=== PATIENT | female | born 1995 | race Caucasian/White ===

== ENCOUNTER → 2017-03-31 | Outpatient (CLI) | payer BC, OTHER ==
--- NOTE | 2017-03-31 11:58 | US ---
EXAMINATION TYPE: US kidneys/renal and bladder DATE OF EXAM: 03/31/2017 COMPARISON: 04/20/2014 CLINICAL HISTORY: 21-year-old female N18.2 CKD STAGE II. CKD, left nephrectomy Technique: Multiple sonographic images of the kidneys and bladder are obtained. FINDINGS: Right Kidney: 11.3 x 5.1 x 6.3 cm with mild hydronephrosis. Left Kidney: Surgically absent No gross abnormality of the partially urine distended bladder. Only the right ureteral jet is visual ized. IMPRESSION: 1. Left kidney appears absent. 2. Persistent right-sided pelvicaliectasis/mild hydronephrosis, similar to the appearance on 5. Clinically correlate.
== END | disposition home or self-care (01) ==
LOC: RADUSWWP 10:26
PROVIDERS: ATTEND Internal Medicine Nephrology
DX: N13.30 Unspecified hydronephrosis (principal); N18.2 Chronic kidney disease, stage 2 (mild); Z90.5 Acquired absence of kidney
CPT/HCPCS: 76770

== ENCOUNTER → 2019-04-18 | Outpatient (CLI) | payer BC, OTHER ==
--- NOTE | 2019-04-18 12:31 | US ---
EXAMINATION TYPE: US kidneys/renal and bladder DATE OF EXAM: 04/18/2019 COMPARISON: US 03/31/2017, US 04/20/2014 CLINICAL HISTORY: 23-year-old female N18.2 CKD. Renal failure TECHNIQUE: EXAM MEASUREMENTS: Right Kidney: 9.6 x 4.5 x 5.4 cm Left Kidney: Not visualized Right Kidney: Mild hydronephrosis, similar to previous exams Left Kidney: Not visualized. Prior exam provided history of prior left nephrectomy. Bladder: wnl Bilateral Jets seen: Right jet visualized IMPRESSION: 1. Unchanged mild right-sided hydronephrosis. 2. Left kidney not visualized. Clinically correlate.
== END | disposition home or self-care (01) ==
LOC: RADUSWWP 10:43
PROVIDERS: ATTEND Internal Medicine Nephrology
DX: N13.30 Unspecified hydronephrosis (principal); N18.2 Chronic kidney disease, stage 2 (mild)
CPT/HCPCS: 76770

== ENCOUNTER 2019-05-14 02:33 | Emergency (ER) | payer BC, OTHER ==
[2019-05-14 02:43] VITALS: RESP 18
[2019-05-14] MEDS ORDERED: SODIUM CHLORIDE 0.9% 1,000 ML IV STA (02:49)
--- NOTE | 2019-05-14 02:49 | ED ---
Abdominal Pain HPI - General Stated Complaint: diarrhea Time Seen by Provider: 05/14/19 02:42 Source: EMS Mode of arrival: EMS Limitations: no limitations - History of Present Illness Initial Comments: Misty is a 23-year-old female with a history of Ingram's syndrome and autism. Patient presents to the emergency department today by ambulance for evaluation of abdominal pain and diarrhea. Patient reports that she is currently on oral antibiotics for dental infection, she is taking clindamycin. Patient states in addition she ate at [employer] for dinner she subsequently developed crampy abdominal pain is had 5 loose stools which prompted her call the ambulance for transport to the hospital. Patient denies any associated fevers chills, nausea, vomiting or change in bladder habits. - Related Data Home Medications Medication Instructions Recorded Confirmed Cholecalciferol [Vitamin D3] 2,000 unit PO DAILY@1200 11/01/14 11/01/14 Enalapril Maleate [Vasotec] 5 mg PO DAILY 11/01/14 11/01/14 Ferrous Sulfate [Feosol] 65 mg PO DAILY 11/01/14 11/01/14 Lisdexamfetamine Dimesylate 70 mg PO QAM 11/01/14 11/01/14 [Vyvanse] Oxybutynin Chloride [Ditropan XL] 5 mg PO DAILY 11/01/14 11/01/14 Sertraline HCl [Zoloft] 50 mg PO DAILY 11/01/14 11/01/14 cloNIDine HCL [Catapres] 0.2 mg PO HS 11/01/14 11/01/14 Previous Rx's Medication Instructions Recorded Ibuprofen [Motrin] 600 mg PO Q6HR PRN #30 tab 11/01/14 Penicillin V Potassium [Pen Vee K] 500 mg PO QID #40 tab 11/01/14 Allergies Allergy/AdvReac Type Severity Reaction Status Date / Time Penicillins Allergy Swelling Verified 05/14/19 02:43 Review of Systems ROS Statement: Those systems with pertinent positive or pertinent negative responses have been documented in the HPI. ROS Other: All systems not noted in ROS Statement are negative. Past Medical History 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, Autism, History of Any Multi-Drug Resistant Organisms: None Reported Additional Past Surgical History / Comment(s): kidney right removed Past Psychological History: Depression Smoking Status: Never smoker Past Alcohol Use History: None Reported Past Drug Use History: None Reported General Exam - General Exam Comments Initial Comments: Physical Exam GENERAL: Syndrome with appearance, no acute distress HENT: Atraumatic. EYES: PERRL, EOMI PULMONARY: Unlabored respirations. No audible rales rhonchi or wheezing was noted. CARDIOVASCULAR: There is a regular rate and rhythm without any murmurs gallops or rubs. ABDOMEN: Soft with normal bowel sounds. Mild tenderness throughout SKIN: Skin is clear with no lesions or rashes and otherwise unremarkable. : Deferred NEUROLOGIC: Patient is alert and oriented x3. Moving all extremities spontaneously MUSCULOSKELETAL: Normal extremities with adequate strength and full range of motion. No lower extremity swelling or edema. No calf tenderness. PSYCHIATRIC: Normal psychiatric evaluation. Limitations: no limitations Course Vital Signs 05/14/19 05/14/19 05/14/19 02:35 05:12 05:52 Temperature 98 F 98.3 F Pulse Rate 89 95 97 Respiratory 18 18 18 Rate Blood Pressure 117/93 111/75 113/85 O2 Sat by Pulse 100 98 98 Oximetry Medical Decision Making - Medical Decision Making Patient was seen and evaluated history is obtained from patient history and physical exam are relatively unremarkable patient's on antibiotics and ate some low-quality fast food resulting in diarrhea. The patient Was found to advise and was taken for shower Labs were unremarkable, mild leukocytosis could be related to dental infection Patient in ER >3hrs, no diarrhea or vomitng, resting comfortably Patient will be discharged home in stable condition - Lab Data Result diagrams: 05/14/19 03:53 05/14/19 03:53 Lab Results 05/14/19 05/14/19 Range/Units 03:53 03:53 WBC 14.1 H (3.8-10.6) k/uL RBC 4.40 (3.80-5.40) m/uL Hgb 13.7 (11.4-16.0) gm/dL Hct 40.9 (34.0-46.0) % MCV 92.8 (80.0-100.0) fL MCH 31.0 (25.0-35.0) pg MCHC 33.4 (31.0-37.0) g/dL RDW 12.3 (11.5-15.5) % Plt Count 248 (150-450) k/uL Neutrophils % 89 % Lymphocytes % 6 % Monocytes % 4 % Eosinophils % 1 % Basophils % 0 % Neutrophils # 12.5 H (1.3-7.7) k/uL Lymphocytes # 0.8 L (1.0-4.8) k/uL Monocytes # 0.6 (0-1.0) k/uL Eosinophils # 0.1 (0-0.7) k/uL Basophils # 0.0 (0-0.2) k/uL Sodium 138 (137-145) mmol/L Potassium 4.2 (3.5-5.1) mmol/L Chloride 107 (98-107) mmol/L Carbon Dioxide 21 L (22-30) mmol/L Anion Gap 10 mmol/L BUN 15 (7-17) mg/dL Creatinine 1.11 H (0.52-1.04) mg/dL Est GFR (CKD-EPI)AfAm 81 (>60 ml/min/1.73 sqM) Est GFR (CKD-EPI)NonAf 70 (>60 ml/min/1.73 sqM) Glucose 108 H (74-99) mg/dL Calcium 9.2 (8.4-10.2) mg/dL Total Bilirubin 0.3 (0.2-1.3) mg/dL AST 25 (14-36) U/L ALT 14 (4-34) U/L Alkaline Phosphatase 135 H (38-126) U/L Total Protein 7.3 (6.3-8.2) g/dL Albumin 4.3 (3.5-5.0) g/dL Disposition Clinical Impression: Diarrhea Disposition: HOME SELF-CARE Condition: Stable Instructions (If sedation given, give patient instructions): Acute Diarrhea (ED) Is patient prescribed a controlled substance at d/c from ED?: No Referrals: Bianca Lindsay MD [Primary Care Provider] - 1-2 days
[2019-05-14 04:18] LABS: Basophils % (A) 0 %; Eosinophils # (A) 0.1 k/uL (0-0.7); Eosinophils % (A) 1 %; HCT 40.9 % (34.0-46.0); HGB 13.7 gm/dL (11.4-16.0); Lymphocytes # (A) 0.8 k/uL (1.0-4.8); Lymphocytes % (A) 6 %; MCHC 33.4 g/dL (31.0-37.0); MCV 92.8 fL (80.0-100.0); Mean Platelet Volume 9.3; Monocytes # (A) 0.6 k/uL (0-1.0); Monocytes % (A) 4 %; Neutrophils # (A) 12.5 k/uL (1.3-7.7); Neutrophils % (A) 89 %; Platelet Count 248 k/uL (150-450); RDW 12.3 % (11.5-15.5); WBC 14.1 k/uL (3.8-10.6)
[2019-05-14 04:27] LABS: Albumin 4.3 g/dL (3.5-5.0); Calcium 9.2 mg/dL (8.4-10.2); Potassium 4.2 mmol/L (3.5-5.1); Total Bilirubin 0.3 mg/dL (0.2-1.3); Total Protein 7.3 g/dL (6.3-8.2)
[2019-05-14 05:13] VITALS: TEMP 98.3
[2019-05-14 05:57] VITALS: BP 113/85; PULSE 97
== END 2019-05-14 06:30 | disposition home or self-care (01) ==
LOC: EC 02:33
DX: R19.7 Diarrhea, unspecified (principal); D72.829 Elevated white blood cell count, unspecified; K04.7 Periapical abscess without sinus; R10.9 Unspecified abdominal pain; Q96.9 Turner's syndrome, unspecified; F32.9 Major depressive disorder, single episode, unspecified; Z79.899 Other long term (current) drug therapy; Z88.0 Allergy status to penicillin
CPT/HCPCS: 36415; 80053; 85025; 96360; 99284

== ENCOUNTER → 2021-08-22 | Outpatient (CLI) | payer OTHER ==
--- NOTE | 2021-08-22 13:05 | US ---
EXAMINATION TYPE: US kidneys/renal and bladder DATE OF EXAM: 08/22/2021 COMPARISON: US 04/18/19 CLINICAL HISTORY: N18.2 Chronic kidney disease stage 2. CKD stage 2. Left nephrectomy in 1994. EXAM MEASUREMENTS: Right Kidney: 10.3 x 5.2 x 5.0 cm Left Kidney: Surgically absent cm Right Kidney: Mild hydro seen Left Kidney: Surgically absent Bladder: wnl Bilateral Jets seen: Yes No nephrolithiasis is seen. No masses are identified. The urinary bladder is anechoic. Bilateral u reteral jets are seen. IMPRESSION: Mild right-sided hydronephrosis noted.
== END | disposition home or self-care (01) ==
LOC: RADUSWWP 11:51
PROVIDERS: ATTEND Internal Medicine Nephrology
DX: N13.30 Unspecified hydronephrosis (principal)
CPT/HCPCS: 76770

== ENCOUNTER → 2021-09-29 | Outpatient (CLI) | payer OTHER ==
--- NOTE | 2021-09-29 13:08 | CT ---
EXAMINATION TYPE: CT abdomen pelvis wo con DATE OF EXAM: 09/29/2021 HISTORY: Hydronephrosis CT DLP: 482.10 mGycm. Automated Exposure Control for Dose Reduction was Utilized. TECHNIQUE: CT scan of the abdomen and pelvis is performed without oral or IV contrast. COMPARISON: Renal US 08/22/[address] abdomen May 05, 2013 FINDINGS: Within the limitations of a non-contrast study, the following observations are made. LUNG BASES: No significant abnormality is appreciated. LIVER/GB: No significant abnormality is appreciated. PANCREAS: No significant abnormality is seen. SPLEEN: No significant abnormality is seen. ADRENALS: No significant abnormality is seen. KIDNEYS: Left kidney is surgically absent. Right kidney remains abnormal with lobulated contour and h eterogeneous appearance. Suboptimal evaluation for masses without contrast. No new hydronephrosis syeda lauryn seen. Stable mild hydroureter coronal image 41 for reference. No renal or ureteral calculi BOWEL: Incidental normal-appearing appendix from cecum. A few Right-sided colonic diverticula. No CT evidence for acute diverticulitis. No suspicious small or large bowel dilatation [id number] fec al prominence in the right and transverse colon. GENITAL ORGANS: Anteverted uterus projects right of midline. LYMPH NODES: No greater than 1cm abdominal or pelvic lymph nodes are appreciated. OSSEOUS STRUCTURES: No significant abnormality is seen. OTHER: No significant additional abnormality is seen. IMPRESSION: No new right-sided hydronephrosis as was suspected on recent ultrasound.
== END | disposition home or self-care (01) ==
LOC: RADCTMAIN 12:29
PROVIDERS: ATTEND Urology
DX: N13.30 Unspecified hydronephrosis (principal)
CPT/HCPCS: 74176

== ENCOUNTER 2022-01-22 16:36 | Inpatient (IN) | payer OTHER ==
--- NOTE | 2022-01-22 16:42 | ED ---
General Adult HPI - General Chief complaint: Back Pain/Injury Stated complaint: Back Pain Time Seen by Provider: 01/22/22 16:42 Source: patient Mode of arrival: EMS Limitations: no limitations - History of Present Illness Initial comments: Patient presents to the ED by ambulance for evaluation. Patient states that she has had right lumbar back pain for the past 2 days, which she states is worse with changes in position. Patient is noted to be febrile on arrival to the ED, and she admits to feeling "hot and cold" for the past couple of days. Patient also admits to having a cough and nasal congestion for the past 2-3 days. Patient states that she had her right kidney removed when she was a child, and she states that she only has her left kidney remaining. Patient denies taking any pain or antipyretic medication today. Patient denies known trauma/injury/fall, leg pain/numbness/weakness, incontinence or urinary retention, headache, neck pain or stiffness, sore throat, chest pain, dyspnea, hemoptysis, palpitations, dizziness, abdominal pain, nausea/vomiting/diarrhea, dysuria/hematuria/urinary frequency/urinary symptoms, or any other symptoms or complaints. - Related Data Home Medications Medication Instructions Recorded Confirmed Cholecalciferol [Vitamin D3] 2,000 unit PO DAILY@1200 11/01/14 11/01/14 Enalapril Maleate [Vasotec] 5 mg PO DAILY 11/01/14 11/01/14 Ferrous Sulfate [Feosol] 65 mg PO DAILY 11/01/14 11/01/14 Lisdexamfetamine Dimesylate 70 mg PO QAM 11/01/14 11/01/14 [Vyvanse] Oxybutynin Chloride [Ditropan XL] 5 mg PO DAILY 11/01/14 11/01/14 Sertraline HCl [Zoloft] 50 mg PO DAILY 11/01/14 11/01/14 cloNIDine HCL [Catapres] 0.2 mg PO HS 11/01/14 11/01/14 Previous Rx's Medication Instructions Recorded Ibuprofen [Motrin] 600 mg PO Q6HR PRN #30 tab 11/01/14 Penicillin V Potassium [Pen Vee K] 500 mg PO QID #40 tab 11/01/14 Allergies Allergy/AdvReac Type Severity Reaction Status Date / Time Penicillins Allergy Swelling Verified 01/22/22 16:42 Review of Systems ROS Statement: Those systems with pertinent positive or pertinent negative responses have been documented in the HPI. ROS Other: All systems not noted in ROS Statement are negative. Past Medical History 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, Autism History of Any Multi-Drug Resistant Organisms: None Reported Additional Past Surgical History / Comment(s): kidney right removed Past Psychological History: Depression Smoking Status: Never smoker Past Alcohol Use History: None Reported Past Drug Use History: None Reported General Exam Limitations: no limitations General appearance: alert, in no apparent distress Head exam: Present: atraumatic, normocephalic Eye exam: Present: normal appearance, EOMI ENT exam: Present: normal oropharynx, mucous membranes moist Neck exam: Present: other (No nuchal rigidity or meningeal signs are present on exam; trachea is in midline). Absent: tenderness, meningismus Respiratory exam: Present: normal lung sounds bilaterally. Absent: respiratory distress, wheezes, rales, rhonchi, stridor Cardiovascular Exam: Present: normal rhythm, tachycardia, normal heart sounds, other (Normal radial pulses bilaterally) GI/Abdominal exam: Present: soft. Absent: distended, tenderness, guarding Extremities exam: Present: full ROM. Absent: tenderness, pedal edema, calf tenderness Back exam: Present: full ROM, other (Mild right lumbar back tenderness; no midline spinal tenderness). Absent: CVA tenderness (R), CVA tenderness (L) Neurological exam: Present: alert, oriented X3, other (No lower extremity neurological deficit or saddle anesthesia is present on exam). Absent: motor sensory deficit Psychiatric exam: Present: normal affect, normal mood Skin exam: Present: warm, dry, intact, normal color Course Vital Signs 01/22/22 01/22/22 16:39 18:14 Temperature 102.6 F H 98.8 F Pulse Rate 135 H 121 H Respiratory 18 18 Rate Blood Pressure 102/68 90/65 O2 Sat by Pulse 96 99 Oximetry - Reevaluation(s) Reevaluation #1: 01/22/22 18:44 Patient remains alert and breathing comfortably. Patient denies development of any new symptoms while in the ED. Patient is aware of her test results, and she agrees with hospital admission at this time. 01/22/22 18:49 Case, H&P, test results and ED management thus far were discussed with Dr. Hutchinson. She accepts hospital admission. She has no further recommendations at this time. Medical Decision Making - Medical Decision Making Patient presents to the ED febrile and complaining of having right lumbar back pain. Patient's UA is quite suggestive of UTI, and with her tachycardia and leukocytosis, she meets sepsis criteria. Patient's chest x-ray is negative. Patient's influenza and Covid tests are also negative. Patient has been treated with IV fluids and IV antibiotics in the ED. Patient's CT abdomen/pelvis does not demonstrate findings of urolithiasis. Will admit the patient to the hospital for continued management/antibiotic treatment. Dr. Hutchinson has accepted hospital admission. - Lab Data Result diagrams: 01/22/22 16:54 01/22/22 16:54 Lab Results 01/22/22 01/22/22 01/22/22 Range/Units 16:45 16:45 16:54 WBC 19.2 H (3.8-10.6) k/uL RBC 4.05 (3.80-5.40) m/uL Hgb 13.0 (11.4-16.0) gm/dL Hct 37.0 (34.0-46.0) % MCV 91.4 (80.0-100.0) fL MCH 32.2 (25.0-35.0) pg MCHC 35.2 (31.0-37.0) g/dL RDW 12.6 (11.5-15.5) % Plt Count 260 (150-450) k/uL MPV 8.9 Neutrophils % 90 % Lymphocytes % 3 % Monocytes % 5 % Eosinophils % 1 % Basophils % 0 % Neutrophils # 17.3 H (1.3-7.7) k/uL Lymphocytes # 0.5 L (1.0-4.8) k/uL Monocytes # 1.0 (0-1.0) k/uL Eosinophils # 0.2 (0-0.7) k/uL Basophils # 0.0 (0-0.2) k/uL Sodium (137-145) mmol/L Potassium (3.5-5.1) mmol/L Chloride (98-107) mmol/L Carbon Dioxide (22-30) mmol/L Anion Gap mmol/L BUN (7-17) mg/dL Creatinine (0.52-1.04) mg/dL Est GFR (CKD-EPI)AfAm (>60 ml/min/1.73 sqM) Est GFR (CKD-EPI)NonAf (>60 ml/min/1.73 sqM) Glucose (74-99) mg/dL Plasma Lactic Acid Murtaza (0.7-2.0) mmol/L Calcium (8.4-10.2) mg/dL Total Bilirubin (0.2-1.3) mg/dL AST (14-36) U/L ALT (4-34) U/L Alkaline Phosphatase (38-126) U/L Total Protein (6.3-8.2) g/dL Albumin (3.5-5.0) g/dL Urine Color Urine Appearance (Clear) Urine pH (5.0-8.0) Ur Specific Shiner (1.001-1.035) Urine Protein (Negative) Urine Glucose (UA) (Negative) Urine Ketones (Negative) Urine Blood (Negative) Urine Nitrite (Negative) Urine Bilirubin (Negative) Urine Urobilinogen (<2.0) mg/dL Ur Leukocyte Esterase (Negative) Urine RBC (0-5) /hpf Urine WBC (0-5) /hpf Urine WBC Clumps (None) /hpf Urine Bacteria (None) /hpf Urine Mucus (None) /hpf Coronavirus (PCR) Not Detected (Not Detectd) Influenza Type A RNA Not Detected (Not Detectd) Influenza Type B (PCR) Not Detected (Not Detectd) 01/22/22 01/22/22 01/22/22 Range/Units 16:54 16:54 16:57 WBC (3.8-10.6) k/uL RBC (3.80-5.40) m/uL Hgb (11.4-16.0) gm/dL Hct (34.0-46.0) % MCV (80.0-100.0) fL MCH (25.0-35.0) pg MCHC (31.0-37.0) g/dL RDW (11.5-15.5) % Plt Count (150-450) k/uL MPV Neutrophils % % Lymphocytes % % Monocytes % % Eosinophils % % Basophils % % Neutrophils # (1.3-7.7) k/uL Lymphocytes # (1.0-4.8) k/uL Monocytes # (0-1.0) k/uL Eosinophils # (0-0.7) k/uL Basophils # (0-0.2) k/uL Sodium 135 L (137-145) mmol/L Potassium 4.3 (3.5-5.1) mmol/L Chloride 102 (98-107) mmol/L Carbon Dioxide 21 L (22-30) mmol/L Anion Gap 12 mmol/L BUN 18 H (7-17) mg/dL Creatinine 1.36 H (0.52-1.04) mg/dL Est GFR (CKD-EPI)AfAm 62 (>60 ml/min/1.73 sqM) Est GFR (CKD-EPI)NonAf 53 (>60 ml/min/1.73 sqM) Glucose 108 H (74-99) mg/dL Plasma Lactic Acid Murtaza 1.0 (0.7-2.0) mmol/L Calcium 9.4 (8.4-10.2) mg/dL Total Bilirubin 1.7 H (0.2-1.3) mg/dL AST 57 H (14-36) U/L ALT 68 H (4-34) U/L Alkaline Phosphatase 205 H (38-126) U/L Total Protein 7.4 (6.3-8.2) g/dL Albumin 4.3 (3.5-5.0) g/dL Urine Color Yellow Urine Appearance Turbid H (Clear) Urine pH 6.0 (5.0-8.0) Ur Specific Shiner 1.015 (1.001-1.035) Urine Protein 2+ H (Negative) Urine Glucose (UA) Negative (Negative) Urine Ketones Negative (Negative) Urine Blood Large H (Negative) Urine Nitrite Negative (Negative) Urine Bilirubin Negative (Negative) Urine Urobilinogen <2.0 (<2.0) mg/dL Ur Leukocyte Esterase Large H (Negative) Urine RBC 53 H (0-5) /hpf Urine WBC >182 H (0-5) /hpf Urine WBC Clumps Many H (None) /hpf Urine Bacteria Occasional H (None) /hpf Urine Mucus Rare H (None) /hpf Coronavirus (PCR) (Not Detectd) Influenza Type A RNA (Not Detectd) Influenza Type B (PCR) (Not Detectd) - Radiology Data Noncontrast CT abdomen/pelvis: Lobulated right kidney. No obstruction. No change compared to old exam. Normal appendix. Chest x-ray: No active cardiopulmonary disease. No pulmonary infiltrates. Disposition Clinical Impression: Acute febrile illness, Lumbar back pain, Pyelonephritis, Sepsis Disposition: ADMITTED IP TO THIS HOSP Condition: Stable Is patient prescribed a controlled substance at d/c from ED?: No Referrals: Bianca Lindsay MD [Primary Care Provider] - 1-2 days Time of Disposition: 18:49
[2022-01-22] MEDS ORDERED: ACETAMINOPHEN TAB 500 MG TAB PO STA (16:48)
[2022-01-22] MEDS ORDERED: SODIUM CHLORIDE 0.9% 1,000 ML IV ONE (16:48)
[2022-01-22 17:02] LABS: Basophils % (A) 0 %; Eosinophils # (A) 0.2 k/uL (0-0.7); Eosinophils % (A) 1 %; Lymphocytes # (A) 0.5 k/uL (1.0-4.8); Lymphocytes % (A) 3 %; MCH 32.2 pg (25.0-35.0); MCHC 35.2 g/dL (31.0-37.0); MCV 91.4 fL (80.0-100.0); Mean Platelet Volume 8.9; Monocytes % (A) 5 %; Neutrophils # (A) 17.3 k/uL (1.3-7.7); Neutrophils % (A) 90 %; Platelet Count 260 k/uL (150-450); RBC 4.05 m/uL (3.80-5.40); RDW 12.6 % (11.5-15.5); WBC 19.2 k/uL (3.8-10.6)
[2022-01-22 17:11] LABS: Albumin 4.3 g/dL (3.5-5.0); Calcium 9.4 mg/dL (8.4-10.2); Potassium 4.3 mmol/L (3.5-5.1); Total Bilirubin 1.7 mg/dL (0.2-1.3); Total Protein 7.4 g/dL (6.3-8.2)
[2022-01-22 17:13] LABS: Appearance,Urine Turbid (Clear); Bacteria,Urine Occasional /hpf; Bilirubin,Urine Negative (Negative); Blood,Urine Large (Negative); Color,Urine Yellow; Glucose,Urine (UA) Negative (Negative); Ketones,Urine Negative (Negative); Leukocyte Esterase,Urine Large (Negative); Mucus,Urine Rare /hpf; Nitrite,Urine Negative (Negative); Protein,Urine 2+ (Negative); RBC,Urine 53 /hpf (0-5); Specific Gravity,Urine 1.015 (1.001-1.035); Urobilinogen,Urine <2.0 mg/dL (<2.0); WBC,Urine >182 /hpf (0-5)
--- NOTE | 2022-01-22 17:15 | XR ---
EXAMINATION TYPE: XR chest 2V DATE OF EXAM: 01/22/2022 COMPARISON: NONE HISTORY: Cough and fever TECHNIQUE: 2 views FINDINGS: Heart is normal. Lungs are clear of consolidation. There are no hilar masses. There is thor acic dextroscoliosis. Costophrenic angles are clear. IMPRESSION: No active cardiopulmonary disease. No pulmonary infiltrates.
--- NOTE | 2022-01-22 17:58 | CT ---
EXAMINATION TYPE: CT abdomen pelvis wo con DATE OF EXAM: 01/22/2022 COMPARISON: 09/29/2021 HISTORY: right flank back pain, UTI, fever CT DLP: 562.1 mGycm Automated exposure control for dose reduction was used. Images obtained from the diaphragm to the floor of the pelvis with no contrast. The lung bases are clear. No pleural effusion. Heart size is normal. No pericardial effusion. Liver s pleen stomach pancreas appear intact. Bile ducts are not dilated. Gallbladder has normal size. There is no adrenal mass. Left kidney is absent. Right kidney is lobulated with no definite hydroneph rosis. Ureters not dilated. The bladder distends smoothly. No inguinal hernia. No free fluid in the p carroll. There is subcutaneous edema over the lumbar spine. The lumbar vertebrae have normal alignment. No compression fracture. Posterior elements are intact. B rohan pelvis is intact. The hip joints are intact. There is no mesenteric edema. No ascites or free air. No sign of a bowel obstruction. Appendix is pos terior and medial and appears normal. IMPRESSION: Lobulated right kidney. No obstruction. No change compared to old exam. Normal appendix.
[2022-01-22] MEDS ORDERED: NALOXONE 0.4 MG/ML 1 ML VIAL IV PRN (18:50)
[2022-01-22] MEDS: SODIUM CHLORIDE 0.9% 1,000 ML IV SCH ×2 (20:16→23:32)
[2022-01-22] MEDS: ACETAMINOPHEN TAB 325 MG TAB PO PRN (23:31)
[2022-01-23] MEDS ORDERED: SODIUM CHLORIDE 0.9% 1,000 ML IV ONE (00:16)
[2022-01-23 01:58] LABS: Glucose,Whole Blood 147 mg/dL (70-110)
--- NOTE | 2022-01-23 02:36 | XR ---
EXAMINATION TYPE: XR chest 1V portable DATE OF EXAM: 01/23/2022 COMPARISON: 01/22/2022 HISTORY: Cough and fever TECHNIQUE: Single view FINDINGS: There is airspace infiltrate in both lower lobes with pulmonary edema. Heart is borderline enlarged. There is slight blunting right costophrenic angle. IMPRESSION: There is new pulmonary edema compared to yesterday and could be acute heart failure or RD S.
[2022-01-23 02:38] LABS: Glucose,Whole Blood 108 mg/dL (70-110)
[2022-01-23 02:43] LABS: ALT 58 U/L (4-34); AST 62 U/L (14-36); African American GFR (CKD) 60 (>60 ml/min/1.73 sqM); Albumin 3.5 g/dL (3.5-5.0); Albumin/Globulin Ratio 1.3; Alkaline Phosphatase 217 U/L (38-126); Anion Gap 10 mmol/L; Blood Urea Nitrogen 17 mg/dL (7-17); Calcium 8.2 mg/dL (8.4-10.2); Carbon Dioxide 15 mmol/L (22-30); Chloride 113 mmol/L (98-107); Globulin 2.6 g/dL; Glucose 117 mg/dL (74-99); Non-African American GFR(CKD) 52 (>60 ml/min/1.73 sqM); Potassium 3.5 mmol/L (3.5-5.1); Sodium 138 mmol/L (137-145); Total Bilirubin 1.7 mg/dL (0.2-1.3); Total Protein 6.1 g/dL (6.3-8.2)
[2022-01-23 02:59] LABS: Basophils % (A) 0 %; Eosinophils # (A) 0.1 k/uL (0-0.7); Eosinophils % (A) 0 %; HCT 35.7 % (34.0-46.0); HGB 12.2 gm/dL (11.4-16.0); Lymphocytes # (A) 0.8 k/uL (1.0-4.8); Lymphocytes % (A) 4 %; MCH 32.4 pg (25.0-35.0); MCHC 34.1 g/dL (31.0-37.0); Mean Platelet Volume 9.7; Monocytes % (A) 5 %; Neutrophils # (A) 18.8 k/uL (1.3-7.7); Neutrophils % (A) 91 %; Platelet Count 259 k/uL (150-450); RBC 3.76 m/uL (3.80-5.40); RDW 12.7 % (11.5-15.5); WBC 20.8 k/uL (3.8-10.6)
[2022-01-23] MEDS ORDERED: FUROSEMIDE 10 MG/ML 10 ML VIAL IV STA (03:18)
[2022-01-23] MEDS ORDERED: CEFEPIME 2 GM in SODIUM CHLORIDE 0.9% 100 ML IVPB SCH (04:00)
[2022-01-23 06:12] LABS: Basophils # (A) 0.1 k/uL (0-0.2); Basophils % (A) 0 %; Eosinophils # (A) 0.2 k/uL (0-0.7); Eosinophils % (A) 1 %; HCT 36.7 % (34.0-46.0); HGB 12.4 gm/dL (11.4-16.0); Lymphocytes # (A) 0.2 k/uL (1.0-4.8); Lymphocytes % (A) 1 %; MCH 32.1 pg (25.0-35.0); MCHC 33.7 g/dL (31.0-37.0); Mean Platelet Volume 9.4; Monocytes % (A) 4 %; Neutrophils # (A) 25.1 k/uL (1.3-7.7); Neutrophils % (A) 94 %; Platelet Count 244 k/uL (150-450); RBC 3.86 m/uL (3.80-5.40); RDW 12.8 % (11.5-15.5); WBC 26.8 k/uL (3.8-10.6)
[2022-01-23 06:23] LABS: Calcium 8.2 mg/dL (8.4-10.2); Potassium 3.9 mmol/L (3.5-5.1)
--- NOTE | 2022-01-23 06:53 | P.HPIM ---
History of Present Illness This is a pleasant 26 years old female with past medical history of Ingram Syndrome, Autism, kidney right removed, Depression. Her PCP is Dr. Lindsay and her mom is her guardian as per patient Patient presents because of cough and right flank pain. Patient states that she had some mild right flank pain yesterday which is went away now. Also she is been complaining of from dry cough no chest pain or dyspnea so she decided to come to emergency room She denies any dysuria or urgency or change in her urine symptoms but she says it is darker than usual. No abdominal pain or vomiting or diarrhea No dizziness but she has mild headache, she is fully awake and oriented, no weakness or abnormal sensation, no blurred vision or slurred speech. Patient denies any vaginal discharge or symptoms, her last menstrual cycle was on last June however she states that she is no way she would be pertinent because of congenital disease and because she is not sexually active as she states. Urine test is negative She denies smoking alcohol or illicit drug On admission patient had a fever of 102.6. She is tachycardic around 118 Blood pressure is soft and borderline 102/68 and overnight was 91 over 60s She has leukocytosis of 19.2, rest of CBC is unremarkable Sodium slightly low 135, creatinine elevated 0.36. Total bilirubin is high at 1.7 AST 57 and ALT 68. Urine analysis is suspicious of infection Nichols Virus, and influenza virus his R aundetected CT of the abdomen and pelvis without contrast: Lobulated right kidney. On obstruction. No change compared to old exam. Normal appendix. No hydronephrosis. Ureters are not dilated. There is subcutaneous edema over the lumbar spine Chest x-ray no active cardiopulmonary process Patient is started in the emergency room on ceftriaxone and started on normal saline at 75 mL/h increased 1 50 mL/h Overnight her blood pressure drop and patient become tachycardic and patient was moved to the ICU. This morning I saw the patient in the MICU she was fully awake and oriented, she was busy working on her smarts 4, she is on BiPAP and she received 1 dose of Lasix and she is diuresed well and produce more than a liter per bedside nurse. Yoder catheter into place. Review of Systems Review of systems CONSTITUTIONAL: No fever, no malaise, no fatigue. HEENT: No recent visual problems or hearing problems. Denied any sore throat. CARDIOVASCULAR: No orthopnea, PND, no palpitations, no syncope. PULMONARY: No shortness of breath,, no hemoptysis. GASTROINTESTINAL: No diarrhea, no nausea, no vomiting, no abdominal pain. Normoactive bowel sounds. NEUROLOGICAL: No headaches, no weakness, no numbness. HEMATOLOGICAL: Denies any bleeding or petechiae. GENITOURINARY: Denies any burning micturition, frequency, or urgency. MUSCULOSKELETAL/RHEUMATOLOGICAL: Denies any joint pain, swelling, or any muscle pain. ENDOCRINE: Denies any polyuria or polydipsia. Past Medical History 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, Autism History of Any Multi-Drug Resistant Organisms: None Reported Additional Past Surgical History / Comment(s): kidney right removed Past Anesthesia/Blood Transfusion Reactions: No Reported Reaction Past Psychological History: Depression Smoking Status: Never smoker Past Alcohol Use History: None Reported Past Drug Use History: None Reported Medications and Allergies Home Medications Medication Instructions Recorded Confirmed Type Enalapril Maleate [Vasotec] 5 mg PO Q48H 11/01/14 01/22/22 History Ferrous Sulfate [Feosol] 325 mg PO DAILY 11/01/14 01/22/22 History Lisdexamfetamine Dimesylate 70 mg PO DAILY 11/01/14 01/22/22 History [Vyvanse] Oxybutynin Chloride [Ditropan XL] 5 mg PO DAILY 11/01/14 01/22/22 History Sertraline HCl [Zoloft] 50 mg PO HS 11/01/14 01/22/22 History Cholecalciferol [Vitamin D3 (125 125 mcg PO DAILY 01/22/22 01/22/22 History Mcg = 5000 Iu)] Melatonin [Melatonin ER] 10 mg PO HS 01/22/22 01/22/22 History Oxybutynin Xl [Ditropan XL] 10 mg PO HS 01/22/22 01/22/22 History calcitrioL [Calcitriol] 0.25 mcg PO Q14D 01/22/22 01/22/22 History cloNIDine HCL [Catapres] 0.1 mg PO HS 01/22/22 01/22/22 History Allergies Allergy/AdvReac Type Severity Reaction Status Date / Time Penicillins Allergy Swelling Verified 01/22/22 19:02 Physical Exam Vitals: Vital Signs Temp Pulse Pulse Resp BP BP Pulse Ox 01/23/22 05:34 01/23/22 05:15 120 H 40 H 86/62 97 01/23/22 05:00 115 H 38 H 86/64 98 01/23/22 04:45 117 H 40 H 90/59 97 01/23/22 04:30 124 H 38 H 90/53 96 01/23/22 04:15 130 H 38 H 87/63 96 01/23/22 04:10 131 H 40 H 87/63 96 01/23/22 04:05 01/23/22 04:00 99.4 F 131 H 43 H 89/65 98 01/23/22 03:50 131 H 41 H 89/65 98 01/23/22 03:40 133 H 40 H 88/54 98 01/23/22 03:30 137 H 43 H 84/61 98 01/23/22 03:24 01/23/22 03:23 100.0 F H 135 H 35 H 80/55 98 01/23/22 02:05 01/23/22 01:19 88/58 01/22/22 23:25 98.2 F 135 H 22 95/62 95 01/22/22 20:15 118 H 18 91/63 97 01/22/22 18:14 98.8 F 121 H 18 90/65 99 01/22/22 16:39 102.6 F H 135 H 18 102/68 96 FiO2 01/23/22 05:34 70 01/23/22 05:15 01/23/22 05:00 01/23/22 04:45 01/23/22 04:30 01/23/22 04:15 01/23/22 04:10 01/23/22 04:05 80 01/23/22 04:00 80 01/23/22 03:50 01/23/22 03:40 01/23/22 03:30 100 01/23/22 03:24 100 01/23/22 03:23 01/23/22 02:05 100 01/23/22 01:19 01/22/22 23:25 01/22/22 20:15 01/22/22 18:14 01/22/22 16:39 Intake and Output 01/22/22 01/22/22 01/23/22 14:59 22:59 06:59 Output Total 875 Balance -875 Output: Urine 875 Other: Voiding Method Indwelling Catheter # Voids 1 Weight 111.13 kg -GENERAL: The patient is alert and oriented x3, not in any acute distress. Obese HEENT: Pupils are round and equally reacting to light. EOMI. No scleral icterus. No conjunctival pallor. Normocephalic, atraumatic. No pharyngeal erythema. No thyromegaly. CARDIOVASCULAR: S1 and S2 present. No murmurs, rubs, or gallops. PULMONARY: Chest is clear to auscultation, no wheezing or crackles. -ABDOMEN: Soft, nontender, nondistended, normoactive bowel sounds. No palpable organomegaly. Yoder catheter and a Place MUSCULOSKELETAL: No joint swelling or deformity. EXTREMITIES: No cyanosis, clubbing, or pedal edema. NEUROLOGICAL: Gross neurological examination did not reveal any focal deficits. SKIN: No rashes. no petechiae. Results CBC & Chem 7: 01/23/22 02:22 01/23/22 05:52 Labs: Abnormal Lab Results - Last 24 Hours (Table) 01/22/22 01/22/22 01/22/22 Range/Units 16:54 16:54 16:54 WBC 19.2 H (3.8-10.6) k/uL RBC (3.80-5.40) m/uL Neutrophils # 17.3 H (1.3-7.7) k/uL Lymphocytes # 0.5 L (1.0-4.8) k/uL Sodium 135 L (137-145) mmol/L Chloride (98-107) mmol/L Carbon Dioxide 21 L (22-30) mmol/L BUN 18 H (7-17) mg/dL Creatinine 1.36 H (0.52-1.04) mg/dL Glucose 108 H (74-99) mg/dL POC Glucose (mg/dL) (70-110) mg/dL Plasma Lactic Acid Murtaza (0.7-2.0) mmol/L Calcium (8.4-10.2) mg/dL Total Bilirubin 1.7 H (0.2-1.3) mg/dL AST 57 H (14-36) U/L ALT 68 H (4-34) U/L Alkaline Phosphatase 205 H (38-126) U/L Total Protein (6.3-8.2) g/dL Urine Appearance Turbid H (Clear) Urine Protein 2+ H (Negative) Urine Blood Large H (Negative) Ur Leukocyte Esterase Large H (Negative) Urine RBC 53 H (0-5) /hpf Urine WBC >182 H (0-5) /hpf Urine WBC Clumps Many H (None) /hpf Urine Bacteria Occasional H (None) /hpf Urine Mucus Rare H (None) /hpf 01/23/22 01/23/22 01/23/22 Range/Units 01:57 02:22 02:22 WBC 20.8 H (3.8-10.6) k/uL RBC 3.76 L (3.80-5.40) m/uL Neutrophils # 18.8 H (1.3-7.7) k/uL Lymphocytes # 0.8 L (1.0-4.8) k/uL Sodium (137-145) mmol/L Chloride 113 H (98-107) mmol/L Carbon Dioxide 15 L (22-30) mmol/L BUN (7-17) mg/dL Creatinine 1.38 H (0.52-1.04) mg/dL Glucose 117 H (74-99) mg/dL POC Glucose (mg/dL) 147 H (70-110) mg/dL Plasma Lactic Acid Murtaza (0.7-2.0) mmol/L Calcium 8.2 L (8.4-10.2) mg/dL Total Bilirubin 1.7 H (0.2-1.3) mg/dL AST 62 H (14-36) U/L ALT 58 H (4-34) U/L Alkaline Phosphatase 217 H (38-126) U/L Total Protein 6.1 L (6.3-8.2) g/dL Urine Appearance (Clear) Urine Protein (Negative) Urine Blood (Negative) Ur Leukocyte Esterase (Negative) Urine RBC (0-5) /hpf Urine WBC (0-5) /hpf Urine WBC Clumps (None) /hpf Urine Bacteria (None) /hpf Urine Mucus (None) /hpf 01/23/22 Range/Units 02:22 WBC (3.8-10.6) k/uL RBC (3.80-5.40) m/uL Neutrophils # (1.3-7.7) k/uL Lymphocytes # (1.0-4.8) k/uL Sodium (137-145) mmol/L Chloride (98-107) mmol/L Carbon Dioxide (22-30) mmol/L BUN (7-17) mg/dL Creatinine (0.52-1.04) mg/dL Glucose (74-99) mg/dL POC Glucose (mg/dL) (70-110) mg/dL Plasma Lactic Acid Murtaza 2.8 H* (0.7-2.0) mmol/L Calcium (8.4-10.2) mg/dL Total Bilirubin (0.2-1.3) mg/dL AST (14-36) U/L ALT (4-34) U/L Alkaline Phosphatase (38-126) U/L Total Protein (6.3-8.2) g/dL Urine Appearance (Clear) Urine Protein (Negative) Urine Blood (Negative) Ur Leukocyte Esterase (Negative) Urine RBC (0-5) /hpf Urine WBC (0-5) /hpf Urine WBC Clumps (None) /hpf Urine Bacteria (None) /hpf Urine Mucus (None) /hpf Microbiology - Last 24 Hours (Table) 01/22/22 16:54 Urine Culture - Preliminary Urine,Voided Thrombosis Risk Factor Assmnt - Choose All That Apply Any of the Below Risk Factors Present?: No Other Risk Factors: No Other congenital or acquired thrombophilia - If yes, enter type in comment: No Thrombosis Risk Factor Assessment Level: Very Low Risk Assessment and Plan Assessment: Possible right side Acute pyelonephritis Severe sepsis with fever and leukocytosis Acute kidney injury and dehydration, precarinal Mild transaminitis and elevated bilirubin History of Ingram syndrome History of autism History of removal of right kidney History of depression, not an active issue Morbid obesity with BMI of 49.5 Plan: Continue with broad-spectrum antibiotic, currently on ceftriaxone Follow-up urine culture and blood culture Continue with IV hydration Continue ICU management with pulmonary/critical care consult Pain management Infectious disease team consult Check renal ultrasound Labs and medication were reviewed.. Continue same treatment. Continue with symptomatic treatment. Resume home medication. Monitor lytes and vitals. DVT and GI prophylaxis. Further recommendations as per clinical course of the patient DVT prophylaxis: Subcutaneous heparin GI Prophylaxis: Pepcid PT/OT: Pending Prognosis is guarded
[2022-01-23] MEDS: FAMOTIDINE 20 MG/2 ML VIAL IV SCH ×2 (08:55→20:22)
[2022-01-23] MEDS: HEPARIN SODIUM,PORCINE/PF 5,000 UNIT/0.5 ML SYRINGE SQ SCH ×2 (08:55→20:21)
--- NOTE | 2022-01-23 09:02 | US ---
EXAMINATION TYPE: US abdomen complete DATE OF EXAM: 01/23/2022 COMPARISON: US renal, CT CLINICAL HISTORY: uti and fever. Abnormal labs TECHNIQUE: Multiple sonographic images of the abdomen are obtained. FINDINGS: EXAM MEASUREMENTS: Liver Length: 14.9 cm Gallbladder Wall: 0.5 cm CBD: 0.4 cm Spleen: 12.0 cm Right Kidney: 11.1 x 5.6 x 5.7 cm Left Kidney: Surgically absent Pancreas: Obscured by bowel gas Liver: wnl Gallbladder: Sludge filled with possible thickened wall and pericholecystic fluid. Evidence for sonographic Aguilar's sign: Yes CBD: wnl Spleen: wnl Right Kidney: Lobulated as visualized on recent CT Left Kidney: Surgically absent Upper IVC: wnl Abd Aorta: Prox and mid wnl, distal portion gassed out IMPRESSION: Biliary sludge, thickened gallbladder wall and pericholecystic fluid and a positive sonographic Della y sign findings suggest acute cholecystitis. Correlate with HIDA and physical exam.
--- NOTE | 2022-01-23 10:24 | P.CNPUL ---
History of Present Illness Consult date: 01/23/22 Reason for consult: dyspnea, hypoxemia History of present illness: This is a 26-year-old female patient who is known history of Ingram syndrome, and the patient was hospitalized yesterday because of a right flank pain consistent with pyelonephritis. The patient subsequently got transferred to the intensive care unit as the patient developed acute pulmonary edema and acute hypoxic respiratory failure. She was tachypneic and tachycardic and very short of breath and she was initially placed on 100% nonrebreather facemask. She got transferred to the intensive care unit hypoxic and she was placed on a BiPAP at a pressure of 10/5 cm of water. The BiPAP helped considerably. Note that the initial chest exit time of admission was essentially within normal limits and subsequent chest x-ray that was done within less than 24 hours showed acute pulmonary edema. The patient was given Lasix 60 mg IV push and the patient produced adequate amount of urine output. There is at least 2 L of diuresis on this patient. She is improved today, she is currently off the BiPAP and the patient is on oxygen at 3 L nasal cannula. White cell count remains elevated at 26.8 with a hemoglobin of 12.4 and a platelet count of 244. The BMs at 70 with a creatinine of 1.4 and the renal function continues to be impaired. This is consistent with an acute kidney injury as the patient's baseline renal function showed a creatinine ranging between 1 and 1.2. The patient has a component of melena negative metabolic acidosis at 18. The UA was obviously abnormal with extensive number of white cells and lumps. test is negative. Covid 19 testing is negative. Influenza screen was negative. Ultrasound of the abdomen showed thickening of the gallbladder wall with pericholecystic fluid and positive sonographic Aguilar's sign that suggest possibly acute cholecystitis. HIDA scan was recommended. The common bile duct was nondilated. Large was filled within the gallbladder wall. Renal ultrasound was not done. CAT scan of the abdomen and pelvis that was done at the time of admission showed lobulated the right kidney, no obstruction, no evidence of any hydronephrosis. Lung bases were essentially clear. The blood culture is positive for now with gram- negative bacillus. The patient was given a dose of IV Rocephin in the emergency and overnight I give the patient IV cefepime 2 g every 12 hours. She is on IV fluid cytology 100 mL an hour's and she is on no pressors. IV fluids will be kept on to 50 mL accordingly. Review of Systems Constitutional: Reports fatigue, Reports fever Eyes: denies as per HPI, denies blurred vision, denies bulging eye, denies decreased vision, denies diplopia, denies discharge, denies dry eye, denies irritation, denies itching, denies pain, denies photophobia, denies loss of peripheral vision, denies loss of vision, denies tunnel vision/blind spots Ears: deny: decreased hearing, ear discharge, earache, tinnitus Ears, nose, mouth and throat: Reports as per HPI Breasts: absent: as per HPI, change in shape, gynecomastia, masses, nipple discharge, pain, skin changes, swelling Cardiovascular: Reports as per HPI Respiratory: Reports as per HPI Gastrointestinal: Reports as per HPI Genitourinary: Reports as per HPI Menstruation: Reports as per HPI Musculoskeletal: Reports as per HPI Musculoskeletal: absent: ankle pain, ankle stiffness, ankle swelling Integumentary: Reports as per HPI Neurological: Reports as per HPI Psychiatric: Reports as per HPI Endocrine: Reports as per HPI Hematologic/Lymphatic: Reports as per HPI Allergic/Immunologic: Reports as per HPI Past Medical History 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, Autism History of Any Multi-Drug Resistant Organisms: None Reported Additional Past Surgical History / Comment(s): Right nephrectomy Past Anesthesia/Blood Transfusion Reactions: No Reported Reaction Past Psychological History: Depression Smoking Status: Never smoker Past Alcohol Use History: None Reported Past Drug Use History: None Reported Medications and Allergies Home Medications Medication Instructions Recorded Confirmed Type Enalapril Maleate [Vasotec] 5 mg PO Q48H 11/01/14 01/22/22 History Ferrous Sulfate [Feosol] 325 mg PO DAILY 11/01/14 01/22/22 History Lisdexamfetamine Dimesylate 70 mg PO DAILY 11/01/14 01/22/22 History [Vyvanse] Oxybutynin Chloride [Ditropan XL] 5 mg PO DAILY 11/01/14 01/22/22 History Sertraline HCl [Zoloft] 50 mg PO HS 11/01/14 01/22/22 History Cholecalciferol [Vitamin D3 (125 125 mcg PO DAILY 01/22/22 01/22/22 History Mcg = 5000 Iu)] Melatonin [Melatonin ER] 10 mg PO HS 01/22/22 01/22/22 History Oxybutynin Xl [Ditropan XL] 10 mg PO HS 01/22/22 01/22/22 History calcitrioL [Calcitriol] 0.25 mcg PO Q14D 01/22/22 01/22/22 History cloNIDine HCL [Catapres] 0.1 mg PO HS 01/22/22 01/22/22 History Allergies Allergy/AdvReac Type Severity Reaction Status Date / Time Penicillins Allergy Swelling Verified 01/22/22 19:02 Physical Exam Vitals: Vital Signs Temp Pulse Pulse Resp BP BP Pulse Ox 01/23/22 09:00 106 H 31 H 99/72 99 01/23/22 08:53 01/23/22 08:45 101 H 30 H 99 01/23/22 08:30 101 H 33 H 99 01/23/22 08:15 111 H 32 H 86/69 99 01/23/22 08:00 110 H 32 H 86/69 99 01/23/22 07:45 99.1 F 112 H 31 H 90/75 99 01/23/22 07:30 118 H 28 H 93/67 98 01/23/22 06:00 118 H 30 H 90/65 96 01/23/22 05:45 122 H 25 H 100/70 97 01/23/22 05:34 01/23/22 05:30 122 H 21 89/64 98 01/23/22 05:15 120 H 40 H 86/62 97 01/23/22 05:00 115 H 38 H 86/64 98 01/23/22 04:45 117 H 40 H 90/59 97 01/23/22 04:30 124 H 38 H 90/53 96 01/23/22 04:15 130 H 38 H 87/63 96 01/23/22 04:10 131 H 40 H 87/63 96 01/23/22 04:05 01/23/22 04:00 99.4 F 131 H 43 H 89/65 98 01/23/22 03:50 131 H 41 H 89/65 98 01/23/22 03:40 133 H 40 H 88/54 98 01/23/22 03:30 137 H 43 H 84/61 98 01/23/22 03:24 01/23/22 03:23 100.0 F H 135 H 35 H 80/55 98 01/23/22 02:05 01/23/22 01:19 88/58 01/22/22 23:25 98.2 F 135 H 22 95/62 95 01/22/22 20:15 118 H 18 91/63 97 01/22/22 18:14 98.8 F 121 H 18 90/65 99 01/22/22 16:39 102.6 F H 135 H 18 102/68 96 FiO2 01/23/22 09:00 50 01/23/22 08:53 50 01/23/22 08:45 01/23/22 08:30 01/23/22 08:15 01/23/22 08:00 01/23/22 07:45 70 01/23/22 07:30 01/23/22 06:00 01/23/22 05:45 01/23/22 05:34 70 01/23/22 05:30 01/23/22 05:15 01/23/22 05:00 01/23/22 04:45 01/23/22 04:30 01/23/22 04:15 01/23/22 04:10 01/23/22 04:05 80 01/23/22 04:00 80 01/23/22 03:50 01/23/22 03:40 01/23/22 03:30 100 01/23/22 03:24 100 01/23/22 03:23 01/23/22 02:05 100 01/23/22 01:19 01/22/22 23:25 01/22/22 20:15 01/22/22 18:14 01/22/22 16:39 Intake and Output 01/22/22 01/23/22 01/23/22 22:59 06:59 14:59 Intake Total 100 200 Output Total 1450 625 Balance -1350 -425 Intake: IV 100 200 Cefepime 2 gm In Sodium 100 200 Chloride 0.9% 100 ml @ 25 mls/hr IVPB Q12H [facility] Rx# :[id number] Output: Urine 1450 625 Other: Voiding Method Indwelling Catheter Indwelling Catheter # Voids 1 Weight 111.13 kg -GENERAL: The patient is alert and oriented x3, not in any acute distress. Obese, the patient is currently on 3 L O2 nasal cannula, breathing is nonlabored HEENT: Pupils are round and equally reacting to light. EOMI. No scleral icterus. No conjunctival pallor. Normocephalic, atraumatic. No pharyngeal erythema. No thyromegaly. CARDIOVASCULAR: S1 and S2 present. Systolic ejection murmur grade 3/6 systolic the precordium PULMONARY: Chest is clear to auscultation, no wheezing or crackles. -ABDOMEN: Soft, nontender, nondistended, normoactive bowel sounds. No palpable organomegaly. Yoder catheter and a Place MUSCULOSKELETAL: No joint swelling or deformity. EXTREMITIES: No cyanosis, clubbing, or pedal edema. NEUROLOGICAL: Gross neurological examination did not reveal any focal deficits. SKIN: No rashes. no petechiae. Results - Laboratory Findings CBC and BMP: 01/23/22 05:47 01/23/22 05:52 Abnormal lab findings: Abnormal Labs 01/22/22 01/22/22 01/22/22 16:54 16:54 16:54 WBC 19.2 H RBC Neutrophils # 17.3 H Lymphocytes # 0.5 L Sodium 135 L Chloride Carbon Dioxide 21 L BUN 18 H Creatinine 1.36 H Glucose 108 H POC Glucose (mg/dL) Plasma Lactic Acid Murtaza Calcium Total Bilirubin 1.7 H AST 57 H ALT 68 H Alkaline Phosphatase 205 H Total Protein Urine Appearance Turbid H Urine Protein 2+ H Urine Blood Large H Ur Leukocyte Esterase Large H Urine RBC 53 H Urine WBC >182 H Urine WBC Clumps Many H Urine Bacteria Occasional H Urine Mucus Rare H 01/23/22 01/23/22 01/23/22 01:57 02:22 02:22 WBC 20.8 H RBC 3.76 L Neutrophils # 18.8 H Lymphocytes # 0.8 L Sodium Chloride 113 H Carbon Dioxide 15 L BUN Creatinine 1.38 H Glucose 117 H POC Glucose (mg/dL) 147 H Plasma Lactic Acid Murtaza Calcium 8.2 L Total Bilirubin 1.7 H AST 62 H ALT 58 H Alkaline Phosphatase 217 H Total Protein 6.1 L Urine Appearance Urine Protein Urine Blood Ur Leukocyte Esterase Urine RBC Urine WBC Urine WBC Clumps Urine Bacteria Urine Mucus 01/23/22 01/23/22 01/23/22 02:22 05:47 05:52 WBC 26.8 H RBC Neutrophils # Lymphocytes # Sodium Chloride 110 H Carbon Dioxide 18 L BUN Creatinine 1.47 H Glucose 127 H POC Glucose (mg/dL) Plasma Lactic Acid Murtaza 2.8 H* Calcium 8.2 L Total Bilirubin AST ALT Alkaline Phosphatase Total Protein Urine Appearance Urine Protein Urine Blood Ur Leukocyte Esterase Urine RBC Urine WBC Urine WBC Clumps Urine Bacteria Urine Mucus - Diagnostic Findings Chest x-ray: image reviewed Assessment and Plan Plan: Acute gram-negative sepsis, likely of urinary source. Acute UTI with secondary septicemia Acute kidney injury secondary to above Acute leukocytosis secondary to above Acute lactic acidosis, improving Acute pulmonary edema in the setting of a valvular heart disease and sepsis. The patient is known to have bicuspid aortic valve and she presented to us with sepsis and she was fluid resuscitated and she briefly went into acute pulmonary edema, responded to diuretics and the patient is currently on 3 L O2 nasal cannula Acute hypoxic respiratory failure, improved currently off BiPAP on 3 L, Bicuspid aortic valve Biliary sludge with abnormal LFTs, there is sonographic Aguilar's sign. On examination, no right upper quadrant tenderness. Common bile duct is not elevated. Consider surgical evaluation. 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 The patient will need a HIDA scan Consider cholecystectomy at the later stage. For now, the acute sepsis related to UTI Obtain an echocardiogram to evaluate her LV function and aortic valve Monitor the white count Monitor the blood culture Restart the patient on Vyvanse, the Toprol-XL and oral iron. We will hold off the clonidine and enalapril for now Patient is fully vaccinated for Covid 19 and flu shots and tetanus shot.
[2022-01-23] MEDS: Lisdexamfetamine Dimesylate [Vyvanse] 70 MG Capsule PO SCH (10:54)
--- NOTE | 2022-01-23 11:04 | P.GSCN ---
History of Present Illness Consult date: 01/23/22 Reason for Consult: Cholecystitis History of present illness: 26-year-old female came to the hospital with complaints of right flank pain that began 2 days prior to presentation. Patient was febrile and had subjective complaints of chills. No nausea or vomiting or other GI complaints. Patient points to the right lateral abdominal wall in the right upper quadrant near the costal margin. Urinalysis suggests presence of urinary tract infection. Patient's liver enzymes which were previously normal however demonstrated an elevated bilirubin of 1.7 mildly elevated ALT and AST and alkaline phosphatase over 200. Ultrasound was then performed showing biliary sludge with thickened gallbladder wall and pericholecystic fluid with positive sonographic Aguilar sign. Patient with history of previous left nephrectomy many years ago. CAT scan shows mildly distended gallbladder. Inflammation difficult to visualize with noncontrast study. The right kidney does not appear different than previous CAT scan earlier this year. Patient was transferred to the ICU because of shortness of breath. Patient has a bicuspid aortic valve. Being evaluated and treated by pulmonary at this time. Patient's urinary cultures pending. Blood cultures are positive for gram-negative bacillus. 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, Autism History of Any Multi-Drug Resistant Organisms: None Reported Additional Past Surgical History / Comment(s): Right nephrectomy Past Anesthesia/Blood Transfusion Reactions: No Reported Reaction Past Psychological History: Depression Smoking Status: Never smoker Past Alcohol Use History: None Reported Past Drug Use History: None Reported Medications and Allergies Home Medications Medication Instructions Recorded Confirmed Type Enalapril Maleate [Vasotec] 5 mg PO Q48H 11/01/14 01/22/22 History Ferrous Sulfate [Feosol] 325 mg PO DAILY 11/01/14 01/22/22 History Lisdexamfetamine Dimesylate 70 mg PO DAILY 11/01/14 01/22/22 History [Vyvanse] Oxybutynin Chloride [Ditropan XL] 5 mg PO DAILY 11/01/14 01/22/22 History Sertraline HCl [Zoloft] 50 mg PO HS 11/01/14 01/22/22 History Cholecalciferol [Vitamin D3 (125 125 mcg PO DAILY 01/22/22 01/22/22 History Mcg = 5000 Iu)] Melatonin [Melatonin ER] 10 mg PO HS 01/22/22 01/22/22 History Oxybutynin Xl [Ditropan XL] 10 mg PO HS 01/22/22 01/22/22 History calcitrioL [Calcitriol] 0.25 mcg PO Q14D 01/22/22 01/22/22 History cloNIDine HCL [Catapres] 0.1 mg PO HS 01/22/22 01/22/22 History Allergies Allergy/AdvReac Type Severity Reaction Status Date / Time Penicillins Allergy Swelling Verified 01/22/22 19:02 Surgical - Exam Vital Signs Temp Pulse Resp BP Pulse Ox 102.6 F H 135 H 18 102/68 96 01/22/22 16:39 01/22/22 16:39 01/22/22 16:39 01/22/22 16:39 01/22/22 16:39 Physical exam: General: Well-developed, mildly obese white female in no distress HEENT: Normocephalic, sclerae nonicteric Abdomen: Mild right upper quadrant tenderness, nondistended Extremities: No edema Neuro: Alert and oriented Results - Labs 01/23/22 05:47 01/23/22 05:52 Abnormal Lab Results - Last 24 Hours (Table) 01/22/22 01/22/22 01/22/22 Range/Units 16:54 16:54 16:54 WBC 19.2 H (3.8-10.6) k/uL RBC (3.80-5.40) m/uL Neutrophils # 17.3 H (1.3-7.7) k/uL Lymphocytes # 0.5 L (1.0-4.8) k/uL Sodium 135 L (137-145) mmol/L Chloride (98-107) mmol/L Carbon Dioxide 21 L (22-30) mmol/L BUN 18 H (7-17) mg/dL Creatinine 1.36 H (0.52-1.04) mg/dL Glucose 108 H (74-99) mg/dL POC Glucose (mg/dL) (70-110) mg/dL Plasma Lactic Acid Murtaza (0.7-2.0) mmol/L Calcium (8.4-10.2) mg/dL Total Bilirubin 1.7 H (0.2-1.3) mg/dL AST 57 H (14-36) U/L ALT 68 H (4-34) U/L Alkaline Phosphatase 205 H (38-126) U/L Total Protein (6.3-8.2) g/dL Urine Appearance Turbid H (Clear) Urine Protein 2+ H (Negative) Urine Blood Large H (Negative) Ur Leukocyte Esterase Large H (Negative) Urine RBC 53 H (0-5) /hpf Urine WBC >182 H (0-5) /hpf Urine WBC Clumps Many H (None) /hpf Urine Bacteria Occasional H (None) /hpf Urine Mucus Rare H (None) /hpf 01/23/22 01/23/22 01/23/22 Range/Units 01:57 02:22 02:22 WBC 20.8 H (3.8-10.6) k/uL RBC 3.76 L (3.80-5.40) m/uL Neutrophils # 18.8 H (1.3-7.7) k/uL Lymphocytes # 0.8 L (1.0-4.8) k/uL Sodium (137-145) mmol/L Chloride 113 H (98-107) mmol/L Carbon Dioxide 15 L (22-30) mmol/L BUN (7-17) mg/dL Creatinine 1.38 H (0.52-1.04) mg/dL Glucose 117 H (74-99) mg/dL POC Glucose (mg/dL) 147 H (70-110) mg/dL Plasma Lactic Acid Murtaza (0.7-2.0) mmol/L Calcium 8.2 L (8.4-10.2) mg/dL Total Bilirubin 1.7 H (0.2-1.3) mg/dL AST 62 H (14-36) U/L ALT 58 H (4-34) U/L Alkaline Phosphatase 217 H (38-126) U/L Total Protein 6.1 L (6.3-8.2) g/dL Urine Appearance (Clear) Urine Protein (Negative) Urine Blood (Negative) Ur Leukocyte Esterase (Negative) Urine RBC (0-5) /hpf Urine WBC (0-5) /hpf Urine WBC Clumps (None) /hpf Urine Bacteria (None) /hpf Urine Mucus (None) /hpf 01/23/22 01/23/22 01/23/22 Range/Units 02:22 05:47 05:52 WBC 26.8 H (3.8-10.6) k/uL RBC (3.80-5.40) m/uL Neutrophils # (1.3-7.7) k/uL Lymphocytes # (1.0-4.8) k/uL Sodium (137-145) mmol/L Chloride 110 H (98-107) mmol/L Carbon Dioxide 18 L (22-30) mmol/L BUN (7-17) mg/dL Creatinine 1.47 H (0.52-1.04) mg/dL Glucose 127 H (74-99) mg/dL POC Glucose (mg/dL) (70-110) mg/dL Plasma Lactic Acid Murtaza 2.8 H* (0.7-2.0) mmol/L Calcium 8.2 L (8.4-10.2) mg/dL Total Bilirubin (0.2-1.3) mg/dL AST (14-36) U/L ALT (4-34) U/L Alkaline Phosphatase (38-126) U/L Total Protein (6.3-8.2) g/dL Urine Appearance (Clear) Urine Protein (Negative) Urine Blood (Negative) Ur Leukocyte Esterase (Negative) Urine RBC (0-5) /hpf Urine WBC (0-5) /hpf Urine WBC Clumps (None) /hpf Urine Bacteria (None) /hpf Urine Mucus (None) /hpf Microbiology - Last 24 Hours (Table) 01/22/22 18:00 Blood Culture Gram Stain - Preliminary Blood 01/22/22 17:50 Blood Culture Gram Stain - Preliminary Blood 01/22/22 18:00 Blood Culture - Final Blood 01/22/22 17:50 Blood Culture - Final Blood 01/22/22 16:54 Urine Culture - Preliminary Urine,Voided Diabetes panel 01/22/22 01/23/22 01/23/22 Range/Units 16:54 02:22 05:52 Sodium 135 L 138 139 (137-145) mmol/L Potassium 4.3 3.5 3.9 (3.5-5.1) mmol/L Chloride 102 113 H 110 H (98-107) mmol/L Carbon Dioxide 21 L 15 L 18 L (22-30) mmol/L BUN 18 H 17 17 (7-17) mg/dL Creatinine 1.36 H 1.38 H 1.47 H (0.52-1.04) mg/dL Glucose 108 H 117 H 127 H (74-99) mg/dL Calcium 9.4 8.2 L 8.2 L (8.4-10.2) mg/dL AST 57 H 62 H (14-36) U/L ALT 68 H 58 H (4-34) U/L Alkaline Phosphatase 205 H 217 H (38-126) U/L Total Protein 7.4 6.1 L (6.3-8.2) g/dL Albumin 4.3 3.5 (3.5-5.0) g/dL Calcium panel 01/22/22 01/23/22 01/23/22 Range/Units 16:54 02:22 05:52 Calcium 9.4 8.2 L 8.2 L (8.4-10.2) mg/dL Albumin 4.3 3.5 (3.5-5.0) g/dL Pituitary panel 01/22/22 01/23/22 01/23/22 Range/Units 16:54 02:22 05:52 Sodium 135 L 138 139 (137-145) mmol/L Potassium 4.3 3.5 3.9 (3.5-5.1) mmol/L Chloride 102 113 H 110 H (98-107) mmol/L Carbon Dioxide 21 L 15 L 18 L (22-30) mmol/L BUN 18 H 17 17 (7-17) mg/dL Creatinine 1.36 H 1.38 H 1.47 H (0.52-1.04) mg/dL Glucose 108 H 117 H 127 H (74-99) mg/dL Calcium 9.4 8.2 L 8.2 L (8.4-10.2) mg/dL Adrenal panel 01/22/22 01/23/22 01/23/22 Range/Units 16:54 02:22 05:52 Sodium 135 L 138 139 (137-145) mmol/L Potassium 4.3 3.5 3.9 (3.5-5.1) mmol/L Chloride 102 113 H 110 H (98-107) mmol/L Carbon Dioxide 21 L 15 L 18 L (22-30) mmol/L BUN 18 H 17 17 (7-17) mg/dL Creatinine 1.36 H 1.38 H 1.47 H (0.52-1.04) mg/dL Glucose 108 H 117 H 127 H (74-99) mg/dL Calcium 9.4 8.2 L 8.2 L (8.4-10.2) mg/dL Total Bilirubin 1.7 H 1.7 H (0.2-1.3) mg/dL AST 57 H 62 H (14-36) U/L ALT 68 H 58 H (4-34) U/L Alkaline Phosphatase 205 H 217 H (38-126) U/L Total Protein 7.4 6.1 L (6.3-8.2) g/dL Albumin 4.3 3.5 (3.5-5.0) g/dL Assessment and Plan (1) Acute cholecystitis Narrative/Plan: 26-year-old female with gram-negative bacteremia and right-sided flank pain. Ultrasound suggests cholecystitis continued into the clinical picture. Whether the source of bacteremia is the gallbladder or the urinary tract infection dif ficult to say with certainty. I do not believe HIDA scan will contribute further to the clinical picture. We'll recheck liver enzymes will today and again tomorrow morning. If liver enzymes increase further would need to consider the possibility of choledocholithiasis. Discussed options with both patient and mentally impaired teacher. Recommend cholecystectomy at this time. We'll proceed with laparoscopic, possible open cholecystectomy tomorrow. Risks of bleeding, infection, bile leak, bile duct injury, retained common bile duct stone, trocar injury, conversion to an open procedure, hernia, anesthesia related complications were reviewed. The patient understands and wishes to proceed. We'll discuss with the patient's mother by phone. Current Visit: Yes Status: Acute Code(s): K81.0 - ACUTE CHOLECYSTITIS SNOMED Code(s): 34376909
[2022-01-23] MEDS: OXYBUTYNIN XL 5 MG TAB.ER.24 PO SCH ×2 (11:08→20:44)
[2022-01-23] MEDS: FERROUS SULFATE 325 MG TAB PO SCH (11:08)
[2022-01-23] MEDS: SODIUM CHLORIDE 0.9% 1,000 ML IV SCH (11:12)
[2022-01-23] MEDS: guaiFENesin-DM 100-10MG/5ML 10 ML CUP PO PRN ×2 (12:32→18:44)
[2022-01-23 12:38] LABS: Albumin 3.6 g/dL (3.5-5.0); Calcium 8.7 mg/dL (8.4-10.2); Total Protein 6.4 g/dL (6.3-8.2)
[2022-01-23 12:41] LABS: Potassium 4.1 mmol/L (3.5-5.1)
[2022-01-23 14:59] LABS: RBC Morphology Normal
--- NOTE | 2022-01-23 17:05 | CA ---
Transthoracic Echo Report Name: Misty Arreola Age: 26 Gender: F : 1995 Exam Date: 01/23/2022 10:35 Exam Location: [facility] Ht (in): 59 Wt (lb): 245 Ordering Physician: Yuliana aNm MD Attending/Referring Phys: Vision Therapist Chantelle Jimenez RDCS Procedure CPT: Indications: Assess LV Function Cardiac Hx: Technical Quality: Fair Contrast 1: Total Dose (mL): Contrast 2: Total Dose (mL): MEASUREMENTS (Male / Female) Normal Values 2D ECHO LV Diastolic Diameter PLAX 3.0 cm 4.2 - 5.9 / 3.9 - 5.3 cm LV Systolic Diameter PLAX 2.4 cm IVS Diastolic Thickness 1.1 cm 0.6 - 1.0 / 0.6 - 0.9 cm LVPW Diastolic Thickness 1.2 cm 0.6 - 1.0 / 0.6 - 0.9 cm LV Relative Wall Thickness 0.8 RV Internal Dim ED PLAX 2.4 cm LVOT Diameter 1.7 cm LA Systolic Diameter LX 2.7 cm 3.0 - 4.0 / 2.7 - 3.8 cm LV Diastolic Volume MOD 4C 74.4 cm??? LV Systolic Volume MOD 4C 37.4 cm??? LV Ejection Fraction MOD 4C 49.7 % LV Diastolic Length 4C 7.2 cm LV Systolic Length 4C 5.8 cm LV Diastolic Volume MOD 2C 60.9 cm??? LV Systolic Volume MOD 2C 29.8 cm??? LV Ejection Fraction MOD 2C 51.1 % LV Diastolic Length 2C 6.5 cm LV Systolic Length 2C 5.7 cm LA Volume 28.9 cm??? 18 - 58 / 22 - 52 cm??? M-MODE Aortic Root Diameter MM 2.0 cm MV E Point Septal Separation 0.5 cm AV Cusp Separation MM 1.7 cm DOPPLER AV Peak Velocity 416.5 cm/s AV Peak Gradient 69.4 mmHg AV Mean Velocity 315.1 cm/s AV Mean Gradient 43.6 mmHg AV Velocity Time Integral 79.2 cm LVOT Peak Velocity 105.8 cm/s LVOT Peak Gradient 4.5 mmHg AV Area Cont Eq pk 0.6 cm??? MV Area PHT 7.4 cm??? Mitral E Point Velocity 152.1 cm/s Mitral A Point Velocity 164.5 cm/s Mitral E to A Ratio 0.9 MV Deceleration Time 101.9 ms MV E' Velocity 10.9 cm/s Mitral E to MV E' Ratio 13.9 TR Peak Velocity 296.7 cm/s TR Peak Gradient 35.2 mmHg Right Ventricular Systolic Press 39.5 mmHg FINDINGS Left Ventricle Left ventricular ejection fraction is estimated at 60-65 %. Small left ventricular cavity. Right Ventricle Normal right ventricular size. Mild pulmonary hypertension. Right Atrium Normal right atrial size. Left Atrium Normal left atrial size. No evidence for an atrial septal defect. Mitral Valve Structurally normal mitral valve. No mitral stenosis, regurgitation or prolapse. Aortic Valve Known bicuspid AOV. Severe aortic stenosis with a peak velocity of 416 m/s, peak gradient 69 mmHg, mean gradient 44 mmHg, and estimated aortic valve area of 0.6 cm???. Tricuspid Valve Structurally normal tricuspid valve. Mild tricuspid regurgitation. Pulmonic Valve Trace pulmonic regurgitation. Pericardium Normal pericardium. No pericardial effusion. Aorta Normal size aortic root and proximal ascending aorta. CONCLUSIONS Left ventricular ejection fraction 60-65% Bicuspid aortic valve with mild to moderately decreased leaflet excursion. Severe aortic stenosis by gradient with maximum velocity 4.1 m/s however still appears to be significant leaflet excursion. Consider correlation with SREEKANTH. Mild tricuspid regurgitation No pericardial effusion Previewed by: Dr. Zachary Grewal DO (Electronically Signed) Final Date: 23 January 2022 17:04
[2022-01-23] MEDS: ACETAMINOPHEN TAB 325 MG TAB PO PRN (20:21)
[2022-01-23] MEDS: NOREPINEPHRINE 4 MG in SODIUM CHLORIDE 0.9% 250 ML IV SCH (20:21)
--- NOTE | 2022-01-23 23:47 | P.CONS ---
History of Present Illness - Reason for Consult Consult date: 01/23/22 Positive blood culture Requesting physician: Michael Kyle - Chief Complaint Right flank pain x few days - History of Present Illness Patient is a 26-year-old female with a past medical history significant for Ingram syndrome autism patient was brought into the ER for evaluation of the right flank pain that apparently has been getting worse for the last few days patient described the pain to be more of a sharp like a stabbing 7-8 out of 10 no radiation with associated nausea and vomiting patient denies having any headache or URI symptoms complaining of some shortness of breath and a cough which has been mild to moderate intensity not bring up any sputum with the symptom the patient has been evaluated on arrival to the ER the patient did have a fever of 102.6 degree Formflex patient was tachycardic hypertensive and tachypneic requiring admission to the ICU patient did have a elevated white count elevated BUN and creatinine as well as elevated lactic acid patient did have a positive UA influenza and COVID testing was negative patient did have a blood and urine culture coming back positive with gram-negative bacilli that has prompted this infectious disease consultation patient did have a CT of the abdominal pelvis lobulated right kidney no obstruction normal appendix she also have an abdominal ultrasound biliary sludge thickened gallbladder wall and pericholecystic fluid for which general surgery has been consulted recommending a HIDA scan Review of Systems Positive point has been mentioned in the HPI rest of the systems are negative Past Medical History 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, Autism History of Any Multi-Drug Resistant Organisms: None Reported Additional Past Surgical History / Comment(s): Right nephrectomy Past Anesthesia/Blood Transfusion Reactions: No Reported Reaction Past Psychological History: Depression Smoking Status: Never smoker Past Alcohol Use History: None Reported Past Drug Use History: None Reported Medications and Allergies Home Medications Medication Instructions Recorded Confirmed Type Ferrous Sulfate [Iron (65 MG 325 mg PO DAILY 11/01/14 01/22/22 History Elemental)] Lisdexamfetamine Dimesylate 70 mg PO DAILY 11/01/14 01/22/22 History [Vyvanse] Oxybutynin Chloride [Ditropan XL] 5 mg PO DAILY 11/01/14 01/22/22 History Sertraline HCl [Zoloft] 50 mg PO HS 11/01/14 01/22/22 History Cholecalciferol [Vitamin D3 (125 125 mcg PO DAILY 01/22/22 01/22/22 History Mcg = 5000 Iu)] Melatonin [Melatonin ER] 10 mg PO HS 01/22/22 01/22/22 History Oxybutynin Xl [Ditropan XL] 10 mg PO HS 01/22/22 01/22/22 History calcitrioL [Calcitriol] 0.25 mcg PO Q14D 01/22/22 01/22/22 History Acetaminophen Tab [Tylenol Tab] 650 mg PO Q4H PRN #30 tablet 01/28/22 Rx Ciprofloxacin HCl [Cipro] 500 mg PO BID 12 Days #24 tab 01/28/22 Rx Famotidine [Pepcid] 20 mg PO DAILY 10 Days #10 tablet 01/28/22 Rx Allergies Allergy/AdvReac Type Severity Reaction Status Date / Time Penicillins Allergy Swelling Verified 01/22/22 19:02 Physical Exam Vitals: Vital Signs Temp Pulse Pulse Resp BP BP Pulse Ox 01/23/22 12:00 99.0 F 112 H 24 95/59 95 01/23/22 11:42 95 01/23/22 11:00 114 H 29 H 93/71 90 L 01/23/22 10:15 112 H 20 97 01/23/22 10:00 103 H 22 94/70 98 01/23/22 09:45 104 H 24 99 01/23/22 09:30 113 H 20 98 01/23/22 09:15 104 H 20 98 01/23/22 09:00 106 H 31 H 99/72 99 01/23/22 08:53 01/23/22 08:45 101 H 30 H 99 01/23/22 08:30 101 H 33 H 99 01/23/22 08:15 111 H 32 H 86/69 99 01/23/22 08:00 110 H 32 H 86/69 99 01/23/22 07:45 99.1 F 112 H 31 H 90/75 99 01/23/22 07:30 118 H 28 H 93/67 98 01/23/22 06:00 118 H 30 H 90/65 96 01/23/22 05:45 122 H 25 H 100/70 97 01/23/22 05:34 01/23/22 05:30 122 H 21 89/64 98 01/23/22 05:15 120 H 40 H 86/62 97 01/23/22 05:00 115 H 38 H 86/64 98 01/23/22 04:45 117 H 40 H 90/59 97 01/23/22 04:30 124 H 38 H 90/53 96 01/23/22 04:15 130 H 38 H 87/63 96 01/23/22 04:10 131 H 40 H 87/63 96 01/23/22 04:05 01/23/22 04:00 99.4 F 131 H 43 H 89/65 98 01/23/22 03:50 131 H 41 H 89/65 98 01/23/22 03:40 133 H 40 H 88/54 98 01/23/22 03:30 137 H 43 H 84/61 98 01/23/22 03:24 01/23/22 03:23 100.0 F H 135 H 35 H 80/55 98 01/23/22 02:05 01/23/22 01:19 88/58 01/22/22 23:25 98.2 F 135 H 22 95/62 95 01/22/22 20:15 118 H 18 91/63 97 01/22/22 18:14 98.8 F 121 H 18 90/65 99 01/22/22 16:39 102.6 F H 135 H 18 102/68 96 FiO2 01/23/22 12:00 01/23/22 11:42 100 01/23/22 11:00 01/23/22 10:15 01/23/22 10:00 01/23/22 09:45 01/23/22 09:30 01/23/22 09:15 01/23/22 09:00 50 01/23/22 08:53 50 01/23/22 08:45 01/23/22 08:30 01/23/22 08:15 01/23/22 08:00 01/23/22 07:45 70 01/23/22 07:30 01/23/22 06:00 01/23/22 05:45 01/23/22 05:34 70 01/23/22 05:30 01/23/22 05:15 01/23/22 05:00 01/23/22 04:45 01/23/22 04:30 01/23/22 04:15 01/23/22 04:10 11/25/22 04:05 80 01/23/22 04:00 80 01/23/22 03:50 01/23/22 03:40 01/23/22 03:30 100 01/23/22 03:24 100 01/23/22 03:23 01/23/22 02:05 100 01/23/22 01:19 01/22/22 23:25 01/22/22 20:15 01/22/22 18:14 01/22/22 16:39 Intake and Output 01/22/22 01/23/22 01/23/22 22:59 06:59 14:59 Intake Total 100 450 Output Total 1450 1275 Balance -1350 -825 Intake: IV 100 450 Cefepime 2 gm In Sodium 100 450 Chloride 0.9% 100 ml @ 25 mls/hr IVPB Q12H [facility] Rx# :[id number] Output: Urine 1450 1275 Other: Voiding Method Indwelling Catheter Indwelling Catheter # Voids 1 Weight 111.13 kg GENERAL DESCRIPTION: Middle-aged female lying in bed, no distress. No tachypnea or accessory muscle of respiration use. HEENT: Shows Pallor , no scleral icterus. Oral mucous membrane is dry. No pharyngeal erythema or thrush NECK: Trachea central, no thyromegaly. LUNGS: Unlabored breathing. Decreased breath sound the base HEART: S1, S2, regular rate and rhythm. No loud murmur ABDOMEN: Soft, mild right-sided tenderness , no guarding or rigidity, no organomegaly EXTREMITIES: No edema of feet. SKIN: No rash, no masses palpable. NEUROLOGICAL: The patient is awake, alert, oriented x3, mood and affect normal. Results CBC & Chem 7: 01/28/22 05:38 01/28/22 05:38 Labs: Abnormal Lab Results - Last 24 Hours (Table) 01/22/22 01/22/22 01/22/22 Range/Units 16:54 16:54 16:54 WBC 19.2 H (3.8-10.6) k/uL RBC (3.80-5.40) m/uL Neutrophils # 17.3 H (1.3-7.7) k/uL Lymphocytes # 0.5 L (1.0-4.8) k/uL Sodium 135 L (137-145) mmol/L Chloride (98-107) mmol/L Carbon Dioxide 21 L (22-30) mmol/L BUN 18 H (7-17) mg/dL Creatinine 1.36 H (0.52-1.04) mg/dL Glucose 108 H (74-99) mg/dL POC Glucose (mg/dL) (70-110) mg/dL Plasma Lactic Acid Murtaza (0.7-2.0) mmol/L Calcium (8.4-10.2) mg/dL Total Bilirubin 1.7 H (0.2-1.3) mg/dL AST 57 H (14-36) U/L ALT 68 H (4-34) U/L Alkaline Phosphatase 205 H (38-126) U/L Total Protein (6.3-8.2) g/dL Urine Appearance Turbid H (Clear) Urine Protein 2+ H (Negative) Urine Blood Large H (Negative) Ur Leukocyte Esterase Large H (Negative) Urine RBC 53 H (0-5) /hpf Urine WBC >182 H (0-5) /hpf Urine WBC Clumps Many H (None) /hpf Urine Bacteria Occasional H (None) /hpf Urine Mucus Rare H (None) /hpf 01/23/22 01/23/22 01/23/22 Range/Units 01:57 02:22 02:22 WBC 20.8 H (3.8-10.6) k/uL RBC 3.76 L (3.80-5.40) m/uL Neutrophils # 18.8 H (1.3-7.7) k/uL Lymphocytes # 0.8 L (1.0-4.8) k/uL Sodium (137-145) mmol/L Chloride 113 H (98-107) mmol/L Carbon Dioxide 15 L (22-30) mmol/L BUN (7-17) mg/dL Creatinine 1.38 H (0.52-1.04) mg/dL Glucose 117 H (74-99) mg/dL POC Glucose (mg/dL) 147 H (70-110) mg/dL Plasma Lactic Acid Murtaza (0.7-2.0) mmol/L Calcium 8.2 L (8.4-10.2) mg/dL Total Bilirubin 1.7 H (0.2-1.3) mg/dL AST 62 H (14-36) U/L ALT 58 H (4-34) U/L Alkaline Phosphatase 217 H (38-126) U/L Total Protein 6.1 L (6.3-8.2) g/dL Urine Appearance (Clear) Urine Protein (Negative) Urine Blood (Negative) Ur Leukocyte Esterase (Negative) Urine RBC (0-5) /hpf Urine WBC (0-5) /hpf Urine WBC Clumps (None) /hpf Urine Bacteria (None) /hpf Urine Mucus (None) /hpf 01/23/22 01/23/22 01/23/22 Range/Units 02:22 05:47 05:52 WBC 26.8 H (3.8-10.6) k/uL RBC (3.80-5.40) m/uL Neutrophils # (1.3-7.7) k/uL Lymphocytes # (1.0-4.8) k/uL Sodium (137-145) mmol/L Chloride 110 H (98-107) mmol/L Carbon Dioxide 18 L (22-30) mmol/L BUN (7-17) mg/dL Creatinine 1.47 H (0.52-1.04) mg/dL Glucose 127 H (74-99) mg/dL POC Glucose (mg/dL) (70-110) mg/dL Plasma Lactic Acid Murtaza 2.8 H* (0.7-2.0) mmol/L Calcium 8.2 L (8.4-10.2) mg/dL Total Bilirubin (0.2-1.3) mg/dL AST (14-36) U/L ALT (4-34) U/L Alkaline Phosphatase (38-126) U/L Total Protein (6.3-8.2) g/dL Urine Appearance (Clear) Urine Protein (Negative) Urine Blood (Negative) Ur Leukocyte Esterase (Negative) Urine RBC (0-5) /hpf Urine WBC (0-5) /hpf Urine WBC Clumps (None) /hpf Urine Bacteria (None) /hpf Urine Mucus (None) /hpf Microbiology - Last 24 Hours (Table) 01/22/22 18:00 Blood Culture Gram Stain - Preliminary Blood 01/22/22 17:50 Blood Culture Gram Stain - Preliminary Blood 01/22/22 18:00 Blood Culture - Final Blood 01/22/22 17:50 Blood Culture - Final Blood 01/22/22 16:54 Urine Culture - Preliminary Urine,Voided Assessment and Plan (1) Bacteremia Status: Acute Code(s): R78.81 - BACTEREMIA SNOMED Code(s): 8365604 (2) Pyelonephritis Status: Acute Code(s): N12 - TUBULO-INTERSTITIAL NEPHRITIS, NOT SPCF ACUTE OR CHRONIC SNOMED Code(s): 22664341 Plan: 1patient present to hospital with sepsis/septic shock in this patient who did have a fever tachycardia elevated white count hypotension source likely right- sided pyelonephritis with secondary bacteremia likely from enteric gram-negative pathogen. 2patient with a penicillin allergy that would limit the number of antibiotics safe to use. 3patient to continue cefepime while waiting for the sensitivities to be finalized. 4gentle IV fluid. We will follow on clinical condition and cultures to further adjust medication if needed Thank you for this consultation will follow this patient along with you Time with Patient: Greater than 30
[2022-01-24 06:36] LABS: Basophils % (A) 0 %; Eosinophils # (A) 0.1 k/uL (0-0.7); Eosinophils % (A) 0 %; HCT 34.3 % (34.0-46.0); HGB 11.3 gm/dL (11.4-16.0); Lymphocytes # (A) 0.6 k/uL (1.0-4.8); Lymphocytes % (A) 4 %; MCH 30.9 pg (25.0-35.0); MCHC 32.8 g/dL (31.0-37.0); MCV 94.2 fL (80.0-100.0); Mean Platelet Volume 9.4; Monocytes # (A) 0.7 k/uL (0-1.0); Monocytes % (A) 5 %; Neutrophils # (A) 12.2 k/uL (1.3-7.7); Neutrophils % (A) 88 %; Platelet Count 262 k/uL (150-450); RBC 3.64 m/uL (3.80-5.40); RDW 13.1 % (11.5-15.5); WBC 13.9 k/uL (3.8-10.6)
[2022-01-24 06:46] LABS: Albumin 3.1 g/dL (3.5-5.0); Calcium 8.2 mg/dL (8.4-10.2); Potassium 3.7 mmol/L (3.5-5.1); Total Bilirubin 0.6 mg/dL (0.2-1.3); Total Protein 5.6 g/dL (6.3-8.2)
[2022-01-24 06:47] LABS: Albumin 3.1 g/dL (3.5-5.0); Bilirubin, Delta 0.4 mg/dL (0.0-0.2); Bilirubin,Unconjugated 0.1 mg/dL (0.0-1.1); Magnesium 1.6 mg/dL (1.6-2.3); Total Bilirubin 0.5 mg/dL (0.2-1.3); Total Protein 5.7 g/dL (6.3-8.2)
[2022-01-24] MEDS ORDERED: Potassium Replacement Protocol 1 EACH MISC MISCELLANE PRN (07:00)
[2022-01-24] MEDS ORDERED: BENZOCAINE SPRAY 1 CAN MUCOUS MEM PRN (07:03)
[2022-01-24] MEDS: POTASSIUM CHLORIDE 10 MEQ in WATER FOR INJECTION 1 100ML.BAG IVPB SCH ×2 (07:40→16:33)
[2022-01-24] MEDS ORDERED: ETOMIDATE 2 MG/ML 10 ML VIAL ONE (08:40)
[2022-01-24] MEDS ORDERED: SUCCINYLCHOLINE CHLORIDE 200 MG/10 ML VIAL IV ONE (08:40)
[2022-01-24] MEDS ORDERED: SODIUM CHLORIDE 0.9% 1,000 ML IV ONE (08:40)
[2022-01-24] MEDS ORDERED: MIDAZOLAM 2 MG/2 ML VIAL ONE (08:40)
[2022-01-24] MEDS ORDERED: fentaNYL (PF) 50 MCG/ML 2 ML AMP ONE (08:40)
[2022-01-24] MEDS ORDERED: ROCURONIUM 10 MG/ML (5 ML VIAL) IV ONE (08:40)
[2022-01-24] MEDS ORDERED: GLYCOPYRROLATE 0.2 MG/ML 2 ML VIAL ONE (08:40)
[2022-01-24] MEDS ORDERED: LIDOCAINE 2% INJ 20 MG/ML (2 ML VIAL) ONE (08:40)
[2022-01-24] MEDS ORDERED: NEOSTIGMINE 1 MG/ML 10 ML VIAL ONE (08:40)
[2022-01-24] MEDS ORDERED: BUPIVACAIN-EPI 0.25%-1:200,000 30 ML VIAL SQ ONE (09:06)
--- NOTE | 2022-01-24 09:38 | P.ANPRN ---
Procedure Note - Anesthesia - Invasive Line Left Arterial Line Time Out Performed: Yes Date of Procedure: 01/24/22 Time of Procedure: 09:00 Location of Patient: OR Preparation: Sterile Prep, Sterile Dressing Arterial Line Location: Radial Ultrasound Used: Yes Purpose - Visualization and Identification of Vasculature: Yes Needle Guage: 20 Image Stored and Saved: Yes Narrative: Left radial arterial line placed using Seldinger technique under u/s guidance
[2022-01-24] MEDS ORDERED: ONDANSETRON 4 MG/2 ML VIAL IVP ONE ×2 (10:11→10:50)
--- NOTE | 2022-01-24 10:17 | P.OP ---
Date of Procedure: 01/24/22 Procedure(s) Performed: PREOPERATIVE DIAGNOSIS: Acute cholecystitis POSTOPERATIVE DIAGNOSIS: Same PROCEDURE: Laparoscopic cholecystectomy SURGEON: Emeka EBL: Minimal see anesthesia record ANESTHESIA: Gen. COMPLICATIONS: None OPERATIVE PROCEDURE: The patient was brought and placed on the operating room table in the supine position. The patient was placed under general anesthesia at that time. The abdomen was prepped and draped in the usual sterile fashion. A small vertical infraumbilical incision was made. The fascia was grasped with the Rigoberto forceps. The fascia was retracted anteriorly. The Veress needle was advanced into the peritoneal cavity. The saline drop test was normal. Insufflation took place up to 15 mmHg. A 5 mm optical trocar was advanced and the peritoneal cavity. 2 additional 5 mm trochars were placed in the right upper quadrant under direct visualization. A 12 mm trocar was advanced into the epigastric incision site. The gallbladder was retracted superiorly and laterally. The peritoneum overlying the infundibulum was bluntly dissected. The patient's cystic duct was visualized. The junction between the cystic duct common and hepatic duct was identified. The critical view of safety was achieved after blunt dissection. The cystic duct was then divided after placement of 3 12 mm clips on the patient's side and one on the specimen side. The cystic artery was identified and clipped as well. A small vessel was seen along the gallbladder fossa and clipped as well. The gallbladder was then removed from the liver bed using electrocautery. The gallbladder was then removed from the epigastric trocar site with an Endo Catch bag. The gallbladder fossa was irrigated with saline. There was no evidence of any bleeding or biliary drainage seen. The fascia at the 12 millimeter site was closed using a Win-Zain 0 Vicryl stitch. The trochars were then removed. The skin at all 4 sites was closed using a 4-0 Monocryl stitch. Skin glue was utilized on the incision sites. At the end of this procedure the sponge and needle counts were correct. DISPOSITION: Stable to the recovery room
[2022-01-24] MEDS ORDERED: LIDOCAINE 1% (10MG/ML) FOR IV START INTRADERMA PRN (10:50)
[2022-01-24] MEDS ORDERED: DEXAMETHASONE SOD PHOSPHATE 4 MG/ML 1 ML VIAL IV ONE (10:50)
[2022-01-24] MEDS: HYDROmorphone 0.5 MG/0.5 ML SYRINGE IVP PRN (11:15)
[2022-01-24] MEDS: SODIUM CHLORIDE 0.9% 1,000 ML IV SCH (11:16)
[2022-01-24] MEDS: LACTATED RINGERS 1,000 ML IV SCH (11:17)
[2022-01-24] MEDS: HEPARIN SODIUM,PORCINE/PF 5,000 UNIT/0.5 ML SYRINGE SQ SCH ×2 (11:17→20:39)
[2022-01-24] MEDS: OXYBUTYNIN XL 5 MG TAB.ER.24 PO SCH ×2 (11:17→20:40)
[2022-01-24] MEDS: FERROUS SULFATE 325 MG TAB PO SCH (11:17)
[2022-01-24] MEDS: Lisdexamfetamine Dimesylate [Vyvanse] 70 MG Capsule PO SCH (11:17)
--- NOTE | 2022-01-24 11:24 | P.PN ---
Subjective Progress Note Date: 01/24/22 This is a 26-year-old female patient who is known history of Ingram syndrome, and the patient was hospitalized yesterday because of a right flank pain consistent with pyelonephritis. The patient subsequently got transferred to the intensive care unit as the patient developed acute pulmonary edema and acute hypoxic respiratory failure. She was tachypneic and tachycardic and very short of breath and she was initially placed on 100% nonrebreather facemask. She got transferred to the intensive care unit hypoxic and she was placed on a BiPAP at a pressure of 10/5 cm of water. The BiPAP helped considerably. Note that the initial chest exit time of admission was essentially within normal limits and subsequent chest x-ray that was done within less than 24 hours showed acute pulmonary edema. The patient was given Lasix 60 mg IV push and the patient produced adequate amount of urine output. There is at least 2 L of diuresis on this patient. She is improved today, she is currently off the BiPAP and the patient is on oxygen at 3 L nasal cannula. White cell count remains elevated at 26.8 with a hemoglobin of 12.4 and a platelet count of 244. The BMs at 70 with a creatinine of 1.4 and the renal function continues to be impaired. This is consistent with an acute kidney injury as the patient's baseline renal function showed a creatinine ranging between 1 and 1.2. The patient has a component of melena negative metabolic acidosis at 18. The UA was obviously abnormal with extensive number of white cells and lumps. test is negative. Covid 19 testing is negative. Influenza screen was negative. Ultrasound of the abdomen showed thickening of the gallbladder wall with pericholecystic fluid and positive sonographic Aguilar's sign that suggest possibly acute cholecystitis. HIDA scan was recommended. The common bile duct was nondilated. Large was filled within the gallbladder wall. Renal ultrasound was not done. CAT scan of the abdomen and pelvis that was done at the time of admission showed lobulated the right kidney, no obstruction, no evidence of any hydronephrosis. Lung bases were essentially clear. The blood culture is positive for now with gram- negative bacillus. The patient was given a dose of IV Rocephin in the emergency and overnight I give the patient IV cefepime 2 g every 12 hours. She is on IV fluid cytology 100 mL an hour's and she is on no pressors. IV fluids will be kept on to 50 mL accordingly. On 01/24/2022, I'm seeing the patient for a follow-up. Noted the patient had a gram-negative sepsis and the patient turnout to have E. coli in her urine and in her blood. She remains on IV antibiotics and currently she is on IV Rocephin 2 g every 24 hours. At the same time, it was noted the gallbladder may be another source of infection. I had a lengthy discussion with the surgeon and we decided to proceed with a laparoscopic cholecystectomy. The patient underwent the surgery this morning without any complications. She was extubated in the operating room and currently she is on oxygen at 2 L nasal cannula. She is hemodynamically stable. She was requiring low-dose norepinephrine and she is at a dose of 0.02 mcg/kg/m. She is also on IV fluids with normal saline at the rate of 50 mL an hour. The white cell count is down to 13.9 with a hemoglobin of 11.3 and the sodium is at 141 with a BUN of 14 and a creatinine of 1.1. She has essentially recovered from her acute kidney injury. LFTs were elevated related to her underlying cholecystitis. Nevertheless, as mentioned earlier, the culprit source of sepsis was the urinary tract. Objective - Vital Signs Vital signs: Vital Signs Temp 99.4 F 01/24/22 09:48 Pulse 127 H 01/24/22 10:33 Resp 22 01/24/22 10:33 BP 97/55 01/24/22 10:33 Pulse Ox 98 01/24/22 10:33 FiO2 100 01/23/22 11:42 Intake & Output 01/23/22 01/24/22 01/24/22 18:59 06:59 18:59 Intake Total 700 600 400 Output Total 1645 975 475 Balance -945 -375 -75 Weight 73.1 kg Intake: IV 700 600 400 Sodium Chloride 0.9% 1, 700 600 100 000 ml @ 50 mls/hr IV . Q20H [facility] Rx#:[id number] Output: Urine 1645 975 470 Estimated Blood Loss 5 Other: Voiding Method Indwelling Catheter Indwelling Catheter Indwelling Catheter - Exam -GENERAL: The patient is alert and oriented x3, not in any acute distress. Obes e, the patient is currently on 2 L O2 nasal cannula, breathing is nonlabored HEENT: Pupils are round and equally reacting to light. EOMI. No scleral icterus. No conjunctival pallor. Normocephalic, atraumatic. No pharyngeal erythema. No thyromegaly. CARDIOVASCULAR: S1 and S2 present. Systolic ejection murmur grade 3/6 systolic the precordium PULMONARY: Chest is clear to auscultation, no wheezing or crackles. -ABDOMEN: Soft, nontender, nondistended, normoactive bowel sounds. No palpable organomegaly. Yoder catheter and a Place mine the patient has scars of laparoscopic cholecystectomy over the right upper quadrant. MUSCULOSKELETAL: No joint swelling or deformity. EXTREMITIES: No cyanosis, clubbing, or pedal edema. NEUROLOGICAL: Gross neurological examination did not reveal any focal deficits. SKIN: No rashes. no petechiae. - Labs CBC & Chem 7: 01/24/22 06:25 01/24/22 06:25 Labs: Abnormal Lab Results - Last 24 Hours (Table) 01/23/22 01/23/22 01/24/22 Range/Units 05:47 11:50 06:25 WBC 13.9 H (3.8-10.6) k/uL RBC 3.64 L (3.80-5.40) m/uL Hgb 11.3 L (11.4-16.0) gm/dL Neutrophils # 25.1 H 12.2 H (1.3-7.7) k/uL Lymphocytes # 0.2 L 0.6 L (1.0-4.8) k/uL Chloride 109 H (98-107) mmol/L Carbon Dioxide 17 L (22-30) mmol/L BUN 18 H (7-17) mg/dL Creatinine 1.30 H (0.52-1.04) mg/dL Glucose 104 H (74-99) mg/dL Calcium (8.4-10.2) mg/dL Delta Bilirubin (0.0-0.2) mg/dL AST 52 H (14-36) U/L ALT 60 H (4-34) U/L Alkaline Phosphatase 189 H (38-126) U/L Total Protein (6.3-8.2) g/dL Albumin (3.5-5.0) g/dL 01/24/22 01/24/22 Range/Units 06:25 06:25 WBC (3.8-10.6) k/uL RBC (3.80-5.40) m/uL Hgb (11.4-16.0) gm/dL Neutrophils # (1.3-7.7) k/uL Lymphocytes # (1.0-4.8) k/uL Chloride 113 H (98-107) mmol/L Carbon Dioxide (22-30) mmol/L BUN (7-17) mg/dL Creatinine 1.16 H (0.52-1.04) mg/dL Glucose 103 H (74-99) mg/dL Calcium 8.2 L (8.4-10.2) mg/dL Delta Bilirubin 0.4 H (0.0-0.2) mg/dL AST (14-36) U/L ALT 45 H 44 H (4-34) U/L Alkaline Phosphatase 187 H 187 H (38-126) U/L Total Protein 5.7 L 5.6 L (6.3-8.2) g/dL Albumin 3.1 L 3.1 L (3.5-5.0) g/dL Microbiology - Last 24 Hours (Table) 01/22/22 17:50 Blood Culture Gram Stain - Preliminary Blood Blood Culture - Preliminary Gram Neg Bacilli 01/22/22 18:00 Blood Culture Gram Stain - Preliminary Blood Blood Culture - Preliminary Escherichia coli 01/22/22 16:54 Urine Culture - Preliminary Urine,Voided Gram Neg Bacilli 01/22/22 18:00 Blood Culture - Final Blood 01/22/22 17:50 Blood Culture - Final Blood Assessment and Plan Plan: Acute E. coli UTI and secondary sepsis currently on IV Rocephin and the patient is on a low-dose of norepinephrine infusion at 0.02 mitral respiratory per minutes. Acute UTI with secondary septicemia, being treated Acute kidney injury secondary to above, improving Acute leukocytosis secondary to above, improving Acute lactic acidosis, improving Biliary sludge along with cholelithiasis and possible cholecystitis. The patient underwent laparoscopic cholecystectomy. The patient is postop day #0, surgery was uncomplicated Acute pulmonary edema in the setting of a valvular heart disease and sepsis. The patient is known to have bicuspid aortic valve and she presented to us with sepsis and she was fluid resuscitated and she briefly went into acute pulmonary edema, responded to diuretics and the patient is currently on 2 L O2 nasal cannula Acute hypoxic respiratory failure, improved currently off BiPAP on 2 L, Bicuspid aortic valve, and the patient has had an echocardiogram on 01/23/2022 showing LV ejection fraction of around 6065%. Nevertheless, the patient has a bicuspid aortic valve with [id number] decrease in the leaflet excursion and severe aortic stenosis. Biliary sludge with abnormal LFTs, there is sonographic Aguilar's sign. On examination, no right upper quadrant tenderness. Common bile duct is not elevated. Consider surgical evaluation. 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 The patient will need a HIDA scan Obtain an echocardiogram to evaluate her LV function and aortic valve Monitor the white count Monitor the blood culture Restart the patient on Vyvanse, the Toprol-XL and oral iron. Wean off pressors Provide the patient and incentive spirometer and the pain control is adequate for now Patient is fully vaccinated for Covid 19 and flu shots and tetanus shot.
[2022-01-24] MEDS: FAMOTIDINE 20 MG/2 ML VIAL IV SCH ×2 (13:53→20:39)
--- NOTE | 2022-01-24 18:35 | P.PN ---
Subjective This is a pleasant 26 years old female with past medical history of Ingram Syndrome, Autism, kidney right removed, Depression. Her PCP is Dr. Lindsay and her mom is her guardian as per patient Patient presents because of cough and right flank pain. Patient states that she had some mild right flank pain yesterday which is went away now. Also she is been complaining of from dry cough no chest pain or dyspnea so she decided to come to emergency room She denies any dysuria or urgency or change in her urine symptoms but she says it is darker than usual. No abdominal pain or vomiting or diarrhea No dizziness but she has mild headache, she is fully awake and oriented, no weakness or abnormal sensation, no blurred vision or slurred speech. Patient denies any vaginal discharge or symptoms, her last menstrual cycle was on last June however she states that she is no way she would be pertinent because of congenital disease and because she is not sexually active as she states. Urine test is negative She denies smoking alcohol or illicit drug On admission patient had a fever of 102.6. She is tachycardic around 118 Blood pressure is soft and borderline 102/68 and overnight was 91 over 60s She has leukocytosis of 19.2, rest of CBC is unremarkable Sodium slightly low 135, creatinine elevated 0.36. Total bilirubin is high at 1.7 AST 57 and ALT 68. Urine analysis is suspicious of infection Nichols Virus, and influenza virus his R aundetected CT of the abdomen and pelvis without contrast: Lobulated right kidney. On obstruction. No change compared to old exam. Normal appendix. No hydronephrosis. Ureters are not dilated. There is subcutaneous edema over the lumbar spine Chest x-ray no active cardiopulmonary process Patient is started in the emergency room on ceftriaxone and started on normal saline at 75 mL/h increased 1 50 mL/h Overnight her blood pressure drop and patient become tachycardic and patient was moved to the ICU. This morning I saw the patient in the MICU she was fully awake and oriented, she was busy working on her smarts 4, she is on BiPAP and she received 1 dose of Lasix and she is diuresed well and produce more than a liter per bedside nurse. Yoder catheter into place. 01/24/2022 patient was lethargic and more tired this morning. Later on through the day she underwent laparoscopic cholecystectomy. She required a small dose of pressors, no audible fluid for her high risk of pulmonary edema from her aortic stenosis. Her vitals are improving, blood pressure is better 91/68, less tachypneic and tachycardic. Dr. Weiss today. Leukocytosis improved down to 13,000 and creatinine down to 1.1. She remains on ceftriaxone. Objective - Vital Signs Vital signs: Vital Signs Temp 99.4 F 01/24/22 09:48 Pulse 128 H 01/24/22 10:03 Resp 22 01/24/22 10:03 BP 107/65 01/24/22 10:03 Pulse Ox 97 01/24/22 10:03 FiO2 100 01/23/22 11:42 Intake & Output 01/23/22 01/24/22 01/24/22 18:59 06:59 18:59 Intake Total 700 600 300 Output Total 1645 975 275 Balance -945 -375 25 Weight 73.1 kg Intake: IV 700 600 300 Sodium Chloride 0.9% 1, 700 600 100 000 ml @ 50 mls/hr IV . Q20H [facility] Rx#:[id number] Output: Urine 1645 975 270 Estimated Blood Loss 5 Other: Voiding Method Indwelling Catheter Indwelling Catheter Indwelling Catheter - Exam GENERAL: The patient is alert and oriented x3, not in any acute distress. Well developed, well nourished. HEENT: Pupils are round and equally reacting to light. EOMI. No scleral icterus. No conjunctival pallor. Normocephalic, atraumatic. No pharyngeal erythema. No thyromegaly. CARDIOVASCULAR: S1 and S2 present. No murmurs, rubs, or gallops. PULMONARY: Chest is clear to auscultation, no wheezing or crackles. -ABDOMEN: Soft, right upper quadrant tenderness, nondistended, normoactive bowel sounds. No palpable organomegaly. MUSCULOSKELETAL: No joint swelling or deformity. EXTREMITIES: No cyanosis, clubbing, or pedal edema. NEUROLOGICAL: Gross neurological examination did not reveal any focal deficits. SKIN: No rashes. no petechiae. - Labs CBC & Chem 7: 01/24/22 06:25 01/24/22 06:25 Labs: Abnormal Lab Results - Last 24 Hours (Table) 01/23/22 01/23/22 01/24/22 Range/Units 05:47 11:50 06:25 WBC 13.9 H (3.8-10.6) k/uL RBC 3.64 L (3.80-5.40) m/uL Hgb 11.3 L (11.4-16.0) gm/dL Neutrophils # 25.1 H 12.2 H (1.3-7.7) k/uL Lymphocytes # 0.2 L 0.6 L (1.0-4.8) k/uL Chloride 109 H (98-107) mmol/L Carbon Dioxide 17 L (22-30) mmol/L BUN 18 H (7-17) mg/dL Creatinine 1.30 H (0.52-1.04) mg/dL Glucose 104 H (74-99) mg/dL Calcium (8.4-10.2) mg/dL Delta Bilirubin (0.0-0.2) mg/dL AST 52 H (14-36) U/L ALT 60 H (4-34) U/L Alkaline Phosphatase 189 H (38-126) U/L Total Protein (6.3-8.2) g/dL Albumin (3.5-5.0) g/dL 01/24/22 01/24/22 Range/Units 06:25 06:25 WBC (3.8-10.6) k/uL RBC (3.80-5.40) m/uL Hgb (11.4-16.0) gm/dL Neutrophils # (1.3-7.7) k/uL Lymphocytes # (1.0-4.8) k/uL Chloride 113 H (98-107) mmol/L Carbon Dioxide (22-30) mmol/L BUN (7-17) mg/dL Creatinine 1.16 H (0.52-1.04) mg/dL Glucose 103 H (74-99) mg/dL Calcium 8.2 L (8.4-10.2) mg/dL Delta Bilirubin 0.4 H (0.0-0.2) mg/dL AST (14-36) U/L ALT 45 H 44 H (4-34) U/L Alkaline Phosphatase 187 H 187 H (38-126) U/L Total Protein 5.7 L 5.6 L (6.3-8.2) g/dL Albumin 3.1 L 3.1 L (3.5-5.0) g/dL Microbiology - Last 24 Hours (Table) 01/22/22 16:54 Urine Culture - Preliminary Urine,Voided Gram Neg Bacilli 01/22/22 18:00 Blood Culture Gram Stain - Preliminary Blood Blood Culture - Preliminary Escherichia coli 01/22/22 17:50 Blood Culture Gram Stain - Preliminary Blood 01/22/22 18:00 Blood Culture - Final Blood 01/22/22 17:50 Blood Culture - Final Blood Assessment and Plan Assessment: Possible right side Acute pyelonephritis Septic shock and septicemia with fever and leukocytosis Acute kidney injury and dehydration, precarinal . Improving Acute cholecystitis status post lap cholecystectomy on 01/24 Severe aortic stenosis in view of her Ingram syndrome History of Ingram syndrome History of autism History of removal of right kidney History of depression, not an active issue Morbid obesity with BMI of 49.5 Plan: Continue with broad-spectrum antibiotic, currently on ceftriaxone Follow-up urine culture and blood culture continue with pressors per ICU team Continue ICU management with pulmonary/critical care consult Surgical team on the case Infectious disease team consult Labs and medication were reviewed.. Continue same treatment. Continue with symptomatic treatment. Resume home medication. Monitor lytes and vitals. DVT and GI prophylaxis. Further recommendations as per clinical course of the patient DVT prophylaxis: Subcutaneous heparin GI Prophylaxis: Pepcid PT/OT: Pending Prognosis is guarded
[2022-01-24] MEDS: ACETAMINOPHEN TAB 325 MG TAB PO PRN (20:40)
[2022-01-25] MEDS: ACETAMINOPHEN TAB 325 MG TAB PO PRN ×2 (03:18→20:47)
[2022-01-25 03:57] LABS: HGB 11.9 gm/dL (11.4-16.0); Hypochromasia Slight; MCH 33.2 pg (25.0-35.0); MCV 97.7 fL (80.0-100.0); Mean Platelet Volume 10.1; Platelet Count 267 k/uL (150-450); RBC 3.58 m/uL (3.80-5.40); RDW 12.9 % (11.5-15.5); WBC 12.3 k/uL (3.8-10.6)
[2022-01-25 04:10] LABS: African American GFR (CKD) >90 (>60 ml/min/1.73 sqM); Anion Gap 8 mmol/L; Blood Urea Nitrogen 10 mg/dL (7-17); Carbon Dioxide 17 mmol/L (22-30); Chloride 110 mmol/L (98-107); Glucose 111 mg/dL (74-99); Non-African American GFR(CKD) 84 (>60 ml/min/1.73 sqM); Sodium 135 mmol/L (137-145)
[2022-01-25 04:19] LABS: Potassium 4.7 mmol/L (3.5-5.1)
[2022-01-25 05:28] LABS: Band Neutrophils % 5 %; Lymphocytes # (M) 0.74 k/uL (1.0-4.8); Monocytes # (M) 0.25 k/uL (0-1.0); Neutrophils % (M) 87 %; Nucleated Red Blood Cells 0 /100 WBC (0-0); Total Cells Counted 100
[2022-01-25 05:29] LABS: Toxic Granulation Present; Toxic Vacuolation Present
[2022-01-25] MEDS ORDERED: METOCLOPRAMIDE 5 MG/ML 2 ML VIAL IVP PRN (07:00)
[2022-01-25] MEDS ORDERED: HYDROmorphone 0.5 MG/0.5 ML SYRINGE IVP PRN (07:00)
[2022-01-25] MEDS: NOREPINEPHRINE 4 MG in SODIUM CHLORIDE 0.9% 250 ML IV SCH ×2 (07:35→12:10)
[2022-01-25] MEDS: FAMOTIDINE 20 MG/2 ML VIAL IV SCH ×2 (07:57→20:47)
[2022-01-25] MEDS: HEPARIN SODIUM,PORCINE/PF 5,000 UNIT/0.5 ML SYRINGE SQ SCH ×2 (07:57→20:46)
[2022-01-25] MEDS: OXYBUTYNIN XL 5 MG TAB.ER.24 PO SCH ×2 (07:57→20:46)
[2022-01-25] MEDS: SODIUM CHLORIDE 0.9% 1,000 ML IV SCH ×2 (07:58→20:48)
[2022-01-25] MEDS: Lisdexamfetamine Dimesylate [Vyvanse] 70 MG Capsule PO SCH (07:59)
[2022-01-25] MEDS: FERROUS SULFATE 325 MG TAB PO SCH (07:59)
[2022-01-25] MEDS: HYDROmorphone 0.5 MG/0.5 ML SYRINGE IVP PRN (08:06)
--- NOTE | 2022-01-25 08:26 | P.PN ---
Subjective This is a pleasant 26 years old female with past medical history of Ingram Syndrome, Autism, kidney right removed, Depression. Her PCP is Dr. Lindsay and her mom is her guardian as per patient Patient presents because of cough and right flank pain. Patient states that she had some mild right flank pain yesterday which is went away now. Also she is been complaining of from dry cough no chest pain or dyspnea so she decided to come to emergency room She denies any dysuria or urgency or change in her urine symptoms but she says it is darker than usual. No abdominal pain or vomiting or diarrhea No dizziness but she has mild headache, she is fully awake and oriented, no weakness or abnormal sensation, no blurred vision or slurred speech. Patient denies any vaginal discharge or symptoms, her last menstrual cycle was on last June however she states that she is no way she would be pertinent because of congenital disease and because she is not sexually active as she states. Urine test is negative She denies smoking alcohol or illicit drug On admission patient had a fever of 102.6. She is tachycardic around 118 Blood pressure is soft and borderline 102/68 and overnight was 91 over 60s She has leukocytosis of 19.2, rest of CBC is unremarkable Sodium slightly low 135, creatinine elevated 0.36. Total bilirubin is high at 1.7 AST 57 and ALT 68. Urine analysis is suspicious of infection Nichols Virus, and influenza virus his R aundetected CT of the abdomen and pelvis without contrast: Lobulated right kidney. On obstruction. No change compared to old exam. Normal appendix. No hydronephrosis. Ureters are not dilated. There is subcutaneous edema over the lumbar spine Chest x-ray no active cardiopulmonary process Patient is started in the emergency room on ceftriaxone and started on normal saline at 75 mL/h increased 1 50 mL/h Overnight her blood pressure drop and patient become tachycardic and patient was moved to the ICU. This morning I saw the patient in the MICU she was fully awake and oriented, she was busy working on her smarts 4, she is on BiPAP and she received 1 dose of Lasix and she is diuresed well and produce more than a liter per bedside nurse. Yoder catheter into place. 01/24/2022 patient was lethargic and more tired this morning. Later on through the day she underwent laparoscopic cholecystectomy. She required a small dose of pressors, no audible fluid for her high risk of pulmonary edema from her aortic stenosis. Her vitals are improving, blood pressure is better 91/68, less tachypneic and tachycardic. Dr. Weiss today. Leukocytosis improved down to 13,000 and creatinine down to 1.1. She remains on ceftriaxone. 01/25/2022 Patient is more comfortable today, more energetic. She is status post laparoscopic cholecystectomy. Postop day #1. She has expected pain at the surgical site with some nausea vomiting. No other new complaint. Blood pressure is better 130/100, she still slightly tachycardic and tachypneic. WBCs 12.3. Patient remains on ceftriaxone Objective - Vital Signs Vital signs: Vital Signs Temp 98.6 F 01/25/22 04:00 Pulse 112 H 01/25/22 07:00 Resp 35 H 01/25/22 07:00 BP 129/89 01/25/22 07:00 Pulse Ox 95 01/25/22 07:00 FiO2 100 01/23/22 11:42 Intake & Output 01/24/22 01/25/22 01/25/22 18:59 06:59 18:59 Intake Total 1226.731 890 Output Total 1075 650 Balance 151.731 240 Intake: IV 750 650 Sodium Chloride 0.9% 1, 450 650 000 ml @ 50 mls/hr IV . Q20H [facility] Rx#:[id number] Intake, IV Titration 226.731 Amount Norepinephrine 4 mg In 226.731 Sodium Chloride 0.9% 250 ml @ 0.03 MCG/KG/MIN 12. 702 mls/hr IV .Q20H [facility] Rx#:[id number] Oral 250 240 Output: Urine 1070 650 Estimated Blood Loss 5 Other: Voiding Method Indwelling Catheter Indwelling Catheter - Exam GENERAL: The patient is alert and oriented x3, not in any acute distress. Well developed, well nourished. HEENT: Pupils are round and equally reacting to light. EOMI. No scleral icterus. No conjunctival pallor. Normocephalic, atraumatic. No pharyngeal erythema. No thyromegaly. CARDIOVASCULAR: S1 and S2 present. No murmurs, rubs, or gallops. PULMONARY: Chest is clear to auscultation, no wheezing or crackles. -ABDOMEN: Soft, right upper quadrant tenderness, nondistended, normoactive bowel sounds. No palpable organomegaly. Small laparoscopic cholecystectomy surgical wounds, hemoglobin MUSCULOSKELETAL: No joint swelling or deformity. EXTREMITIES: No cyanosis, clubbing, or pedal edema. NEUROLOGICAL: Gross neurological examination did not reveal any focal deficits. SKIN: No rashes. no petechiae. - Labs CBC & Chem 7: 01/25/22 03:42 01/25/22 03:42 Labs: Abnormal Lab Results - Last 24 Hours (Table) 01/24/22 01/25/22 01/25/22 Range/Units 06:25 03:42 03:42 WBC 12.3 H (3.8-10.6) k/uL RBC 3.58 L (3.80-5.40) m/uL Neutrophils # (Manual) 11.30 H (1.3-7.7) k/uL Lymphocytes # (Manual) 0.74 L (1.0-4.8) k/uL Sodium 135 L (137-145) mmol/L Chloride 110 H (98-107) mmol/L Carbon Dioxide 17 L (22-30) mmol/L Glucose 111 H (74-99) mg/dL Procalcitonin 9.15 H (0.02-0.09) ng/mL Microbiology - Last 24 Hours (Table) 01/22/22 16:54 Urine Culture - Final Urine,Voided Escherichia coli 01/22/22 17:50 Blood Culture Gram Stain - Preliminary Blood Blood Culture - Preliminary Gram Neg Bacilli 01/22/22 18:00 Blood Culture Gram Stain - Preliminary Blood Blood Culture - Preliminary Escherichia coli Assessment and Plan Assessment: Possible right side Acute pyelonephritis Septic shock and septicemia with fever and leukocytosis Acute kidney injury and dehydration, precarinal . 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 Continue same treatment. Continue with symptomatic treatment. Resume home medication. Monitor lytes and vitals. DVT and GI prophylaxis. Further recommendations as per clinical course of the patient DVT prophylaxis: Subcutaneous heparin GI Prophylaxis: Pepcid PT/OT: Pending Prognosis is guarded
[2022-01-25] MEDS: guaiFENesin-DM 100-10MG/5ML 10 ML CUP PO PRN ×2 (09:14→18:46)
[2022-01-25] MEDS ORDERED: IBUPROFEN 600 MG TAB PO PRN (09:33)
--- NOTE | 2022-01-25 09:35 | P.PN ---
Subjective Progress Note Date: 01/25/22 Principal diagnosis: Cholecystitis Patient went back to the ICU yesterday after her cholecystectomy extubated. Has done well since then. She came off of her Levophed last night around 6 PM. Pulmonary status has been stable. Mild nausea. Mild pain. Objective - Vital Signs Vital signs: Vital Signs Temp 98.7 F 01/25/22 08:00 Pulse 111 H 01/25/22 09:00 Resp 20 01/25/22 09:00 BP 134/101 01/25/22 09:00 Pulse Ox 89 L 01/25/22 09:00 FiO2 100 01/23/22 11:42 Intake & Output 01/24/22 01/25/22 01/25/22 18:59 06:59 18:59 Intake Total 1226.731 890 200 Output Total 1075 650 100 Balance 151.731 240 100 Intake: IV 750 650 100 Sodium Chloride 0.9% 1, 450 650 100 000 ml @ 50 mls/hr IV . Q20H [facility] Rx#:[id number] Intake, IV Titration 226.731 Amount Norepinephrine 4 mg In 226.731 Sodium Chloride 0.9% 250 ml @ 0.03 MCG/KG/MIN 12. 702 mls/hr IV .Q20H [facility] Rx#:[id number] Oral 250 240 100 Output: Urine 1070 650 100 Estimated Blood Loss 5 Other: Voiding Method Indwelling Catheter Indwelling Catheter Indwelling Catheter - Exam Abdomen: Soft, mild tenderness, incisions clean and dry - Labs CBC & Chem 7: 01/25/22 03:42 01/25/22 03:42 Labs: Abnormal Lab Results - Last 24 Hours (Table) 01/24/22 01/25/22 01/25/22 Range/Units 06:25 03:42 03:42 WBC 12.3 H (3.8-10.6) k/uL RBC 3.58 L (3.80-5.40) m/uL Neutrophils # (Manual) 11.30 H (1.3-7.7) k/uL Lymphocytes # (Manual) 0.74 L (1.0-4.8) k/uL Sodium 135 L (137-145) mmol/L Chloride 110 H (98-107) mmol/L Carbon Dioxide 17 L (22-30) mmol/L Glucose 111 H (74-99) mg/dL Procalcitonin 9.15 H (0.02-0.09) ng/mL Microbiology - Last 24 Hours (Table) 01/22/22 16:54 Urine Culture - Final Urine,Voided Escherichia coli 01/22/22 17:50 Blood Culture Gram Stain - Preliminary Blood Blood Culture - Preliminary Gram Neg Bacilli 01/22/22 18:00 Blood Culture Gram Stain - Preliminary Blood Blood Culture - Preliminary Escherichia coli Assessment and Plan (1) Acute cholecystitis Narrative/Plan: Patient doing well after cholecystectomy yesterday. Continue advancing diet as tolerated. Continue antibiotics. Oral analgesics will be ordered. Current Visit: Yes Status: Acute Code(s): K81.0 - ACUTE CHOLECYSTITIS SNOMED Code(s): 73608583
--- NOTE | 2022-01-25 11:02 | P.PN ---
Subjective Progress Note Date: 01/25/22 This is a 26-year-old female patient who is known history of Ingram syndrome, and the patient was hospitalized yesterday because of a right flank pain consistent with pyelonephritis. The patient subsequently got transferred to the intensive care unit as the patient developed acute pulmonary edema and acute hypoxic respiratory failure. She was tachypneic and tachycardic and very short of breath and she was initially placed on 100% nonrebreather facemask. She got transferred to the intensive care unit hypoxic and she was placed on a BiPAP at a pressure of 10/5 cm of water. The BiPAP helped considerably. Note that the initial chest exit time of admission was essentially within normal limits and subsequent chest x-ray that was done within less than 24 hours showed acute pulmonary edema. The patient was given Lasix 60 mg IV push and the patient produced adequate amount of urine output. There is at least 2 L of diuresis on this patient. She is improved today, she is currently off the BiPAP and the patient is on oxygen at 3 L nasal cannula. White cell count remains elevated at 26.8 with a hemoglobin of 12.4 and a platelet count of 244. The BMs at 70 with a creatinine of 1.4 and the renal function continues to be impaired. This is consistent with an acute kidney injury as the patient's baseline renal function showed a creatinine ranging between 1 and 1.2. The patient has a component of melena negative metabolic acidosis at 18. The UA was obviously abnormal with extensive number of white cells and lumps. test is negative. Covid 19 testing is negative. Influenza screen was negative. Ultrasound of the abdomen showed thickening of the gallbladder wall with pericholecystic fluid and positive sonographic Aguilar's sign that suggest possibly acute cholecystitis. HIDA scan was recommended. The common bile duct was nondilated. Large was filled within the gallbladder wall. Renal ultrasound was not done. CAT scan of the abdomen and pelvis that was done at the time of admission showed lobulated the right kidney, no obstruction, no evidence of any hydronephrosis. Lung bases were essentially clear. The blood culture is positive for now with gram- negative bacillus. The patient was given a dose of IV Rocephin in the emergency and overnight I give the patient IV cefepime 2 g every 12 hours. She is on IV fluid cytology 100 mL an hour's and she is on no pressors. IV fluids will be kept on to 50 mL accordingly. On 01/24/2022, I'm seeing the patient for a follow-up. Noted the patient had a gram-negative sepsis and the patient turnout to have E. coli in her urine and in her blood. She remains on IV antibiotics and currently she is on IV Rocephin 2 g every 24 hours. At the same time, it was noted the gallbladder may be another source of infection. I had a lengthy discussion with the surgeon and we decided to proceed with a laparoscopic cholecystectomy. The patient underwent the surgery this morning without any complications. She was extubated in the operating room and currently she is on oxygen at 2 L nasal cannula. She is hemodynamically stable. She was requiring low-dose norepinephrine and she is at a dose of 0.02 mcg/kg/m. She is also on IV fluids with normal saline at the rate of 50 mL an hour. The white cell count is down to 13.9 with a hemoglobin of 11.3 and the sodium is at 141 with a BUN of 14 and a creatinine of 1.1. She has essentially recovered from her acute kidney injury. LFTs were elevated related to her underlying cholecystitis. Nevertheless, as mentioned earlier, the culprit source of sepsis was the urinary tract. In 2021, the patient is recovering from her acute laparoscopic cholecystectomy that was done for underlying cholelithiasis. Nevertheless, the patient was also septic with E. coli UTI and the patient is adequately treated and resuscitated. The patient remains on IV Rocephin. The white cell count is down to 12.3. She is hemodynamically stable and she is on no pressors at this point in time. Noted the patient also is known to have a lot of stenosis and bicuspid aortic valve. The white cell count is down to 12.3. Hemoglobin is 11.9. The serum bicarbs at 17 with a BUN of 10 and a creatinine of 0.9. The pro-calcitonin level was as high as 9.1 she is otherwise, comfortable. She is on 2 L of oxygen by nasal cannula and a pulse ox is around 99%. Surgical one- sided dry clean and intact. No other significant events overnight. No fever. No pressors. Objective - Vital Signs Vital signs: Vital Signs Temp 98.7 F 01/25/22 08:00 Pulse 107 H 01/25/22 10:00 Resp 27 H 01/25/22 10:00 BP 106/75 01/25/22 10:00 Pulse Ox 98 01/25/22 10:00 FiO2 100 01/23/22 11:42 Intake & Output 01/24/22 01/25/22 01/25/22 18:59 06:59 18:59 Intake Total 1226.731 890 200 Output Total 1075 650 100 Balance 151.731 240 100 Weight 73.1 kg Intake: IV 750 650 100 Sodium Chloride 0.9% 1, 450 650 100 000 ml @ 50 mls/hr IV . Q20H [facility] Rx#:[id number] Intake, IV Titration 226.731 Amount Norepinephrine 4 mg In 226.731 Sodium Chloride 0.9% 250 ml @ 0.03 MCG/KG/MIN 12. 702 mls/hr IV .Q20H [facility] Rx#:[id number] Oral 250 240 100 Output: Urine 1070 650 100 Estimated Blood Loss 5 Other: Voiding Method Indwelling Catheter Indwelling Catheter Indwelling Catheter - Exam -GENERAL: The patient is alert and oriented x3, not in any acute distress. Obese, the patient is currently on 2 L O2 nasal cannula, breathing is nonlabored HEENT: Pupils are round and equally reacting to light. EOMI. No scleral icterus. No conjunctival pallor. Normocephalic, atraumatic. No pharyngeal erythema. No thyromegaly. CARDIOVASCULAR: S1 and S2 present. Systolic ejection murmur grade 3/6 systolic the precordium PULMONARY: Chest is clear to auscultation, no wheezing or crackles. -ABDOMEN: Soft, nontender, nondistended, normoactive bowel sounds. No palpable organomegaly. Yoder catheter and a Place mine the patient has scars of laparoscopic cholecystectomy over the right upper quadrant. MUSCULOSKELETAL: No joint swelling or deformity. EXTREMITIES: No cyanosis, clubbing, or pedal edema. NEUROLOGICAL: Gross neurological examination did not reveal any focal deficits. SKIN: No rashes. no petechiae. - Labs CBC & Chem 7: 01/25/22 03:42 01/25/22 03:42 Labs: Abnormal Lab Results - Last 24 Hours (Table) 01/24/22 01/25/22 01/25/22 Range/Units 06:25 03:42 03:42 WBC 12.3 H (3.8-10.6) k/uL RBC 3.58 L (3.80-5.40) m/uL Neutrophils # (Manual) 11.30 H (1.3-7.7) k/uL Lymphocytes # (Manual) 0.74 L (1.0-4.8) k/uL Sodium 135 L (137-145) mmol/L Chloride 110 H (98-107) mmol/L Carbon Dioxide 17 L (22-30) mmol/L Glucose 111 H (74-99) mg/dL Procalcitonin 9.15 H (0.02-0.09) ng/mL Microbiology - Last 24 Hours (Table) 01/22/22 16:54 Urine Culture - Final Urine,Voided Escherichia coli 01/22/22 17:50 Blood Culture Gram Stain - Preliminary Blood Blood Culture - Preliminary Gram Neg Bacilli 01/22/22 18:00 Blood Culture Gram Stain - Preliminary Blood Blood Culture - Preliminary Escherichia coli Assessment and Plan Plan: Acute E. coli UTI and secondary sepsis currently on IV Rocephin , no pressors, hemodynamically stable Acute UTI with secondary septicemia, being treated Acute kidney injury secondary to above, recovered Acute leukocytosis secondary to above, recovered Acute lactic acidosis, improving Biliary sludge along with cholelithiasis and possible cholecystitis. The patient underwent laparoscopic cholecystectomy. The patient is postop day #1, surgery was uncomplicated Acute pulmonary edema in the setting of a valvular heart disease and sepsis. The patient is known to have bicuspid aortic valve and she presented to us with sepsis and she was fluid resuscitated and she briefly went into acute pulmonary edema, responded to diuretics and the patient is currently on 2 L O2 nasal can nula, recovered Acute hypoxic respiratory failure, improved currently off BiPAP on 2 L, Bicuspid aortic valve, and the patient has had an echocardiogram on 01/23/2022 showing LV ejection fraction of around 6065%. Nevertheless, the patient has a bicuspid aortic valve with [id number] decrease in the leaflet excursion and severe aortic stenosis. 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 Clinically stable. We'll continue to follow. Possible release from the ICU today. She is still advancing her diet. His taken essentially clear liquid diet at this point in time.
[2022-01-25] MEDS: LACTATED RINGERS 1,000 ML IV SCH (11:19)
[2022-01-25] MEDS: DEXTROSE 5% IN WATER 1,000 ML with SODIUM BICARB (1 MEQ/ML) 150 ML IV SCH (12:32)
--- NOTE | 2022-01-25 15:22 | P.PN ---
Subjective Progress Note Date: 01/24/22 Principal diagnosis: E. coli pyelonephritis and bacteremia Patient is a 26-year-old female with a past medical history significant for Ingram's syndrome presenting to the ER for evaluation of right flank pain patient has been diagnosed with right-sided polynephritis and subsequently did have E. coli bacteremia, the patient is status post laparoscopic-assisted cholecystectomy completed on 01/24/2022. On today's evaluation that is 01/24/2022, the patient is afebrile last temperature was 101 last evening patient is currently breathing comfortably on admission his abdominal denies any chest pain or shortness of breath occasional cough. Pain to the right flank area slightly decreased no nausea no vomiting and no diarrhea Objective - Vital Signs Vital signs: Vital Signs Temp 98.4 F 01/24/22 16:00 Pulse 107 H 01/24/22 16:15 Resp 29 H 01/24/22 16:15 BP 91/67 01/24/22 16:15 Pulse Ox 95 01/24/22 16:00 FiO2 100 01/23/22 11:42 Intake & Output 01/23/22 01/24/22 01/24/22 18:59 06:59 18:59 Intake Total 228 680 8456.803 Output Total 1645 975 900 Balance -945 -375 220.803 Weight 73.1 kg Intake: IV 700 600 650 Sodium Chloride 0.9% 1, 700 600 350 000 ml @ 50 mls/hr IV . Q20H [facility] Rx#:[id number] Intake, IV Titration 220.803 Amount Norepinephrine 4 mg In 220.803 Sodium Chloride 0.9% 250 ml @ 0.03 MCG/KG/MIN 12. 702 mls/hr IV .Q20H [facility] Rx#:[id number] Oral 250 Output: Urine 1645 975 895 Estimated Blood Loss 5 Other: Voiding Method Indwelling Catheter Indwelling Catheter Indwelling Catheter - Exam GENERAL DESCRIPTION: A middle-age female lying in bed in no distress RESPIRATORY SYSTEM: Unlabored breathing , decreased breath sounds at bases HEART: S1 S2 regular rate and rhythm , ABDOMEN: Soft , no tenderness EXTREMITIES: No edema feet - Labs CBC & Chem 7: 01/25/22 03:42 01/25/22 03:42 Labs: Abnormal Lab Results - Last 24 Hours (Table) 01/24/22 01/24/2222 Range/Units 06:25 06:25 06:25 WBC 13.9 H (3.8-10.6) k/uL RBC 3.64 L (3.80-5.40) m/uL Hgb 11.3 L (11.4-16.0) gm/dL Neutrophils # 12.2 H (1.3-7.7) k/uL Lymphocytes # 0.6 L (1.0-4.8) k/uL Chloride (98-107) mmol/L Creatinine (0.52-1.04) mg/dL Glucose (74-99) mg/dL Calcium (8.4-10.2) mg/dL Delta Bilirubin 0.4 H (0.0-0.2) mg/dL ALT 45 H (4-34) U/L Alkaline Phosphatase 187 H (38-126) U/L Total Protein 5.7 L (6.3-8.2) g/dL Albumin 3.1 L (3.5-5.0) g/dL Procalcitonin 9.15 H (0.02-0.09) ng/mL 01/24/22 Range/Units 06:25 WBC (3.8-10.6) k/uL RBC (3.80-5.40) m/uL Hgb (11.4-16.0) gm/dL Neutrophils # (1.3-7.7) k/uL Lymphocytes # (1.0-4.8) k/uL Chloride 113 H (98-107) mmol/L Creatinine 1.16 H (0.52-1.04) mg/dL Glucose 103 H (74-99) mg/dL Calcium 8.2 L (8.4-10.2) mg/dL Delta Bilirubin (0.0-0.2) mg/dL ALT 44 H (4-34) U/L Alkaline Phosphatase 187 H (38-126) U/L Total Protein 5.6 L (6.3-8.2) g/dL Albumin 3.1 L (3.5-5.0) g/dL Procalcitonin (0.02-0.09) ng/mL Microbiology - Last 24 Hours (Table) 01/22/22 17:50 Blood Culture Gram Stain - Preliminary Blood Blood Culture - Preliminary Gram Neg Bacilli 01/22/22 18:00 Blood Culture Gram Stain - Preliminary Blood Blood Culture - Preliminary Escherichia coli 01/22/22 16:54 Urine Culture - Preliminary Urine,Voided Gram Neg Bacilli Assessment and Plan (1) Pyelonephritis Current Visit: Yes Status: Acute Code(s): N12 - TUBULO-INTERSTITIAL NEPHRITIS, NOT SPCF ACUTE OR CHRONIC SNOMED Code(s): 16843376 (2) Sepsis Current Visit: Yes Status: Acute Code(s): A41.9 - SEPSIS, UNSPECIFIED ORGANISM SNOMED Code(s): 13639475 Plan: 1patient present to hospital with sepsis/septic shock in this patient who did have a fever tachycardia elevated white count hypotension source likely right-sided pyelonephritis with secondary bacteremia likely from enteric gram- negative pathogen. 2patient with a penicillin allergy that would limit the number of antibiotics safe to use. 3patient seemed to have shown clinical improvement and will continue with the Rocephin while monitor clinical course closely Time with Patient: Less than 30
--- NOTE | 2022-01-25 15:23 | P.PN ---
Subjective Progress Note Date: 01/25/22 Principal diagnosis: E. coli pyelonephritis and bacteremia Patient is a 26-year-old female with a past medical history significant for Ingram's syndrome presenting to the ER for evaluation of right flank pain patient has been diagnosed with right-sided polynephritis and subsequently did have E. coli bacteremia, the patient is status post laparoscopic-assisted cholecystectomy completed on 01/24/2022. On today's evaluation that is 01/25/2022, the patient remains to be afebrile , the patient is currently breathing comfortably on admission his abdominal denies any chest pain or shortness of breath occasional cough. The patient Pain to the right flank area slightly decreased no nausea no vomiting and no diarrhea Objective - Vital Signs Vital signs: Vital Signs Temp 98 F 01/25/22 12:00 Pulse 101 H 01/25/22 14:00 Resp 24 01/25/22 14:00 BP 109/78 01/25/22 14:00 Pulse Ox 98 01/25/22 14:00 FiO2 100 01/23/22 11:42 Intake & Output 01/24/22 01/25/22 01/25/22 18:59 06:59 18:59 Intake Total 1226.731 890 650 Output Total 1075 650 425 Balance 151.731 240 225 Weight 73.1 kg Intake: IV 750 650 200 Sodium Chloride 0.9% 1, 450 650 200 000 ml @ 50 mls/hr IV . Q20H [facility] Rx#:[id number] Intake, IV Titration 226.731 150 Amount Dextrose 5% in Water 1, 150 000 ml @ 50 mls/hr IV . Q23H [facility] with Sodium Bicarb (1 Meq/ml) 150 ml Rx#:[id number] Norepinephrine 4 mg In 226.731 Sodium Chloride 0.9% 250 ml @ 0.03 MCG/KG/MIN 12. 702 mls/hr IV .Q20H [facility] Rx#:[id number] Oral 250 240 300 Output: Urine 1070 650 425 Estimated Blood Loss 5 Other: Voiding Method Indwelling Catheter Indwelling Catheter Indwelling Catheter - Exam GENERAL DESCRIPTION: A middle-age female lying in bed in no distress RESPIRATORY SYSTEM: Unlabored breathing , decreased breath sounds at bases HEART: S1 S2 regular rate and rhythm , ABDOMEN: Soft , no tenderness EXTREMITIES: No edema feet - Labs CBC & Chem 7: 01/25/22 03:42 01/25/22 03:42 Labs: Abnormal Lab Results - Last 24 Hours (Table) 01/25/22 01/25/22 Range/Units 03:42 03:42 WBC 12.3 H (3.8-10.6) k/uL RBC 3.58 L (3.80-5.40) m/uL Neutrophils # (Manual) 11.30 H (1.3-7.7) k/uL Lymphocytes # (Manual) 0.74 L (1.0-4.8) k/uL Sodium 135 L (137-145) mmol/L Chloride 110 H (98-107) mmol/L Carbon Dioxide 17 L (22-30) mmol/L Glucose 111 H (74-99) mg/dL Microbiology - Last 24 Hours (Table) 01/22/22 17:50 Blood Culture Gram Stain - Final Blood Blood Culture - Final Escherichia coli 01/22/22 18:00 Blood Culture Gram Stain - Final Blood Blood Culture - Final Escherichia coli 01/22/22 16:54 Urine Culture - Final Urine,Voided Escherichia coli Assessment and Plan (1) Pyelonephritis Current Visit: Yes Status: Acute Code(s): N12 - TUBULO-INTERSTITIAL NEPHRITIS, NOT SPCF ACUTE OR CHRONIC SNOMED Code(s): 69730169 Plan: 1patient present to hospital with sepsis/septic shock in this patient who did have a fever tachycardia elevated white count hypotension source likely right- sided pyelonephritis with secondary bacteremia likely from enteric gram-negative pathogen. 2patient with a penicillin allergy that would limit the number of antibiotics safe to use. 3patient seemed to have shown clinical improvement and E. coli is sensitive to Rocephin which will be continued while inpatient and monitor clinical course closely Time with Patient: Less than 30
[2022-01-25] MEDS: HYDROcodone/APAP 5-325MG 1 EACH TAB PO PRN (16:32)
[2022-01-26] MEDS ORDERED: OXYMETAZOLINE 0.05% NASL SPRAY 1 SPRAY BOTTLE NASAL PRN (04:00)
[2022-01-26 04:06] LABS: Basophils % (A) 0 %; Eosinophils # (A) 0.1 k/uL (0-0.7); Eosinophils % (A) 1 %; HCT 33.1 % (34.0-46.0); HGB 11.2 gm/dL (11.4-16.0); Lymphocytes # (A) 0.8 k/uL (1.0-4.8); Lymphocytes % (A) 10 %; MCH 32.2 pg (25.0-35.0); MCHC 33.8 g/dL (31.0-37.0); MCV 95.2 fL (80.0-100.0); Mean Platelet Volume 9.1; Monocytes # (A) 0.5 k/uL (0-1.0); Monocytes % (A) 7 %; Neutrophils # (A) 5.9 k/uL (1.3-7.7); Neutrophils % (A) 79 %; Platelet Count 259 k/uL (150-450); RBC 3.48 m/uL (3.80-5.40); RDW 12.9 % (11.5-15.5); WBC 7.5 k/uL (3.8-10.6)
[2022-01-26 04:16] LABS: ALT 120 U/L (4-34); AST 148 U/L (14-36); African American GFR (CKD) >90 (>60 ml/min/1.73 sqM); Alkaline Phosphatase 243 U/L (38-126); Anion Gap 5 mmol/L; Blood Urea Nitrogen 10 mg/dL (7-17); Calcium 8.8 mg/dL (8.4-10.2); Carbon Dioxide 24 mmol/L (22-30); Chloride 106 mmol/L (98-107); Glucose 99 mg/dL (74-99); Magnesium 1.6 mg/dL (1.6-2.3); Non-African American GFR(CKD) >90 (>60 ml/min/1.73 sqM); Sodium 135 mmol/L (137-145); Total Bilirubin 0.4 mg/dL (0.2-1.3); Total Protein 5.5 g/dL (6.3-8.2)
[2022-01-26] MEDS: traMADol 50 MG TAB PO PRN ×2 (04:32→20:24)
[2022-01-26] MEDS: guaiFENesin-DM 100-10MG/5ML 10 ML CUP PO PRN ×2 (04:40→20:24)
[2022-01-26] MEDS ORDERED: Magnesium Replacement Protocol 1 EACH MISC MISCELLANE PRN (04:59)
[2022-01-26] MEDS: MAGNESIUM SULFATE-D5W PMX 1 GM in DEXTROSE/WATER 1 100ML.BAG IVPB SCH ×2 (05:13→06:38)
[2022-01-26] MEDS: HYDROcodone/APAP 5-325MG 1 EACH TAB PO PRN (07:26)
[2022-01-26] MEDS: NOREPINEPHRINE 4 MG in SODIUM CHLORIDE 0.9% 250 ML IV SCH (08:58)
[2022-01-26] MEDS: Lisdexamfetamine Dimesylate [Vyvanse] 70 MG Capsule PO SCH (09:24)
[2022-01-26] MEDS: OXYBUTYNIN XL 5 MG TAB.ER.24 PO SCH ×2 (09:27→20:24)
[2022-01-26] MEDS: FERROUS SULFATE 325 MG TAB PO SCH (09:27)
[2022-01-26] MEDS: HEPARIN SODIUM,PORCINE/PF 5,000 UNIT/0.5 ML SYRINGE SQ SCH ×2 (09:27→20:24)
[2022-01-26] MEDS: FAMOTIDINE 20 MG/2 ML VIAL IV SCH ×2 (09:27→20:24)
--- NOTE | 2022-01-26 09:32 | P.PN ---
Subjective This is a pleasant 26 years old female with past medical history of Ingram Syndrome, Autism, kidney right removed, Depression. Her PCP is Dr. Lindsay and her mom is her guardian as per patient Patient presents because of cough and right flank pain. Patient states that she had some mild right flank pain yesterday which is went away now. Also she is been complaining of from dry cough no chest pain or dyspnea so she decided to come to emergency room She denies any dysuria or urgency or change in her urine symptoms but she says it is darker than usual. No abdominal pain or vomiting or diarrhea No dizziness but she has mild headache, she is fully awake and oriented, no weakness or abnormal sensation, no blurred vision or slurred speech. Patient denies any vaginal discharge or symptoms, her last menstrual cycle was on last June however she states that she is no way she would be pertinent because of congenital disease and because she is not sexually active as she states. Urine test is negative She denies smoking alcohol or illicit drug On admission patient had a fever of 102.6. She is tachycardic around 118 Blood pressure is soft and borderline 102/68 and overnight was 91 over 60s She has leukocytosis of 19.2, rest of CBC is unremarkable Sodium slightly low 135, creatinine elevated 0.36. Total bilirubin is high at 1.7 AST 57 and ALT 68. Urine analysis is suspicious of infection Nichols Virus, and influenza virus his R aundetected CT of the abdomen and pelvis without contrast: Lobulated right kidney. On obstruction. No change compared to old exam. Normal appendix. No hydronephrosis. Ureters are not dilated. There is subcutaneous edema over the lumbar spine Chest x-ray no active cardiopulmonary process Patient is started in the emergency room on ceftriaxone and started on normal saline at 75 mL/h increased 1 50 mL/h Overnight her blood pressure drop and patient become tachycardic and patient was moved to the ICU. This morning I saw the patient in the MICU she was fully awake and oriented, she was busy working on her smarts 4, she is on BiPAP and she received 1 dose of Lasix and she is diuresed well and produce more than a liter per bedside nurse. Yoder catheter into place. 01/24/2022 patient was lethargic and more tired this morning. Later on through the day she underwent laparoscopic cholecystectomy. She required a small dose of pressors, no audible fluid for her high risk of pulmonary edema from her aortic stenosis. Her vitals are improving, blood pressure is better 91/68, less tachypneic and tachycardic. Dr. Weiss today. Leukocytosis improved down to 13,000 and creatinine down to 1.1. She remains on ceftriaxone. 01/25/2022 Patient is more comfortable today, more energetic. She is status post laparoscopic cholecystectomy. Postop day #1. She has expected pain at the surgical site with some nausea vomiting. No other new complaint. Blood pressure is better 130/100, she still slightly tachycardic and tachypneic. WBCs 12.3. Patient remains on ceftriaxone 01/26/2022 Patient awake alert, looks tired, she denies any specific complaints, she has mild right upper quadrant abdominal pain and tenderness at the surgical site. The Yoder catheter in place, no other urinary complaints or abdominal pain. Denies diet well. Vitals are improving slowly and gradually including her tachycardia and tachypnea WBC is back to normal today 7.5 and creatinine 0.8. Liver enzymes are elevated. Blood culture showing E. coli which is sensitive to ceftriaxone. Patient currently cut and 2 g of ceftriaxone daily. Objective - Vital Signs Vital signs: Vital Signs Temp 97.6 F 01/26/22 04:00 Pulse 109 H 01/26/22 07:00 Resp 22 01/26/22 07:00 BP 106/77 01/26/22 07:00 Pulse Ox 91 L 01/26/22 09:27 FiO2 100 01/23/22 11:42 Intake & Output 01/25/22 01/26/22 01/26/22 18:59 06:59 18:59 Intake Total 850 950 Output Total 710 1265 Balance 140 -315 Weight 72.9 kg Intake: IV 200 Sodium Chloride 0.9% 1, 200 000 ml @ 50 mls/hr IV . Q20H [facility] Rx#:[id number] Intake, IV Titration 350 950 Amount Cefepime 2 gm In Sodium 100 Chloride 0.9% 100 ml @ 25 mls/hr IVPB Q12H [facility] Rx# :[id number] Dextrose 5% in Water 1, 350 650 000 ml @ 50 mls/hr IV . Q23H [facility] with Sodium Bicarb (1 Meq/ml) 150 ml Rx#:[id number] Magnesium Sulfate-D5w Pmx 200 1 gm In Dextrose/Water 1 100ml.bag @ 100 mls/hr IVPB Q1H [facility] Rx#: [id number] Oral 300 Output: Urine 710 1265 Other: Voiding Method Indwelling Catheter Indwelling Catheter - Exam GENERAL: The patient is alert and oriented x3, not in any acute distress. Well developed, well nourished. HEENT: Pupils are round and equally reacting to light. EOMI. No scleral icterus. No conjunctival pallor. Normocephalic, atraumatic. No pharyngeal erythema. No thyromegaly. CARDIOVASCULAR: S1 and S2 present. No murmurs, rubs, or gallops. PULMONARY: Chest is clear to auscultation, no wheezing or crackles. -ABDOMEN: Soft, right upper quadrant tenderness, nondistended, normoactive bowel sounds. No palpable organomegaly. Small laparoscopic cholecystectomy surgical wounds, hemoglobin MUSCULOSKELETAL: No joint swelling or deformity. EXTREMITIES: No cyanosis, clubbing, or pedal edema. NEUROLOGICAL: Gross neurological examination did not reveal any focal deficits. SKIN: No rashes. no petechiae. - Labs CBC & Chem 7: 01/26/22 03:46 01/26/22 03:46 Labs: Abnormal Lab Results - Last 24 Hours (Table) 01/26/22 01/26/22 Range/Units 03:46 03:46 RBC 3.48 L (3.80-5.40) m/uL Hgb 11.2 L (11.4-16.0) gm/dL Hct 33.1 L (34.0-46.0) % Lymphocytes # 0.8 L (1.0-4.8) k/uL Sodium 135 L (137-145) mmol/L AST 148 H (14-36) U/L ALT 120 H (4-34) U/L Alkaline Phosphatase 243 H (38-126) U/L Total Protein 5.5 L (6.3-8.2) g/dL Albumin 3.0 L (3.5-5.0) g/dL Microbiology - Last 24 Hours (Table) 01/22/22 17:50 Blood Culture Gram Stain - Final Blood Blood Culture - Final Escherichia coli 01/22/22 18:00 Blood Culture Gram Stain - Final Blood Blood Culture - Final Escherichia coli Assessment and Plan Assessment: right side Acute pyelonephritis secondary to E. coli Septic shock and septicemia with fever and leukocytosis, improving Acute kidney injury and dehydration, resolved back to normal Acute cholecystitis status post lap cholecystectomy on 01/24 Severe aortic stenosis in view of her Ingram syndrome History of Ingram syndrome History of autism History of removal of right kidney History of depression, not an active issue Morbid obesity with BMI of 49.5 Plan: Continue with broad-spectrum antibiotic, currently on ceftriaxone Monitor liver enzymes Continue ICU management with pulmonary/critical care consult Surgical team on the case Infectious disease team consult Labs and medication were reviewed.. Continue same treatment. Continue with symptomatic treatment. Resume home medication. Monitor lytes and vitals. DVT and GI prophylaxis. Further recommendations as per clinical course of the patient DVT prophylaxis: Subcutaneous heparin GI Prophylaxis: Pepcid PT/OT: Pending Prognosis is guarded
--- NOTE | 2022-01-26 11:35 | P.PN ---
Subjective Progress Note Date: 01/26/22 Principal diagnosis: E. coli sepsis and bacteremia, most likely source is acute urinary tract infection This is a 26-year-old female patient who is known history of Ingram syndrome, and the patient was hospitalized yesterday because of a right flank pain consistent with pyelonephritis. The patient subsequently got transferred to the intensive care unit as the patient developed acute pulmonary edema and acute hypoxic respiratory failure. She was tachypneic and tachycardic and very short of breath and she was initially placed on 100% nonrebreather facemask. She got transferred to the intensive care unit hypoxic and she was placed on a BiPAP at a pressure of 10/5 cm of water. The BiPAP helped considerably. Note that the initial chest exit time of admission was essentially within normal limits and subsequent chest x-ray that was done within less than 24 hours showed acute pulmonary edema. The patient was given Lasix 60 mg IV push and the patient produced adequate amount of urine output. There is at least 2 L of diuresis on this patient. She is improved today, she is currently off the BiPAP and the patient is on oxygen at 3 L nasal cannula. White cell count remains elevated at 26.8 with a hemoglobin of 12.4 and a platelet count of 244. The BMs at 70 with a creatinine of 1.4 and the renal function continues to be impaired. This is consistent with an acute kidney injury as the patient's baseline renal function showed a creatinine ranging between 1 and 1.2. The patient has a component of melena negative metabolic acidosis at 18. The UA was obviously abnormal with extensive number of white cells and lumps. test is negative. Covid 19 testing is negative. Influenza screen was negative. Ultrasound of the abdomen showed thickening of the gallbladder wall with pericholecystic fluid and positive sonographic Aguilar's sign that suggest possibly acute cholecystitis. HIDA scan was recommended. The common bile duct was nondilated. Large was filled within the gallbladder wall. Renal ultrasound was not done. CAT scan of the abdomen and pelvis that was done at the time of admission showed lobulated the right kidney, no obstruction, no evidence of any hydronephrosis. Lung bases were essentially clear. The blood culture is positive for now with gram- negative bacillus. The patient was given a dose of IV Rocephin in the emergency and overnight I give the patient IV cefepime 2 g every 12 hours. She is on IV fluid cytology 100 mL an hour's and she is on no pressors. IV fluids will be kept on to 50 mL accordingly. On 01/24/2022, I'm seeing the patient for a follow-up. Noted the patient had a gram-negative sepsis and the patient turnout to have E. coli in her urine and in her blood. She remains on IV antibiotics and currently she is on IV Rocephin 2 g every 24 hours. At the same time, it was noted the gallbladder may be another source of infection. I had a lengthy discussion with the surgeon and we decided to proceed with a laparoscopic cholecystectomy. The patient underwent the surgery this morning without any complications. She was extubated in the operating room and currently she is on oxygen at 2 L nasal cannula. She is hemodynamically stable. She was requiring low-dose norepinephrine and she is at a dose of 0.02 mcg/kg/m. She is also on IV fluids with normal saline at the rate of 50 mL an hour. The white cell count is down to 13.9 with a hemoglobin of 11.3 and the sodium is at 141 with a BUN of 14 and a creatinine of 1.1. She has essentially recovered from her acute kidney injury. LFTs were elevated related to her underlying cholecystitis. Nevertheless, as mentioned earlier, the culprit source of sepsis was the urinary tract. In 2021, the patient is recovering from her acute laparoscopic cholecystectomy that was done for underlying cholelithiasis. Nevertheless, the patient was also septic with E. coli UTI and the patient is adequately treated and resuscitated. The patient remains on IV Rocephin. The white cell count is down to 12.3. She is hemodynamically stable and she is on no pressors at this point in time. Noted the patient also is known to have a lot of stenosis and bicuspid aortic valve. The white cell count is down to 12.3. Hemoglobin is 11.9. The serum bicarbs at 17 with a BUN of 10 and a creatinine of 0.9. The pro-calcitonin level was as high as 9.1 she is otherwise, comfortable. She is on 2 L of oxygen by nasal cannula and a pulse ox is around 99%. Surgical one- sided dry clean and intact. No other significant events overnight. No fever. No pressors. Reevaluated today on 01/26/22, patient remains in the ICU, but she is doing extremely well. Patient is relatively asymptomatic. She is now on room air, blood pressure is stable, she remains on antibiotics as per infectious disease on the case, patient is alert oriented 3, does not seem to be in any distress. CBC is relatively normal electrolytes are basically normal, renal profile is normal however her liver profile seems to be a bit abnormal. Patient is status post cholecystectomy. Today I plan to transfer the patient out of the ICU to a regular medical floor. Objective - Vital Signs Vital signs: Vital Signs Temp 98.5 F 01/26/22 08:00 Pulse 108 H 01/26/22 10:00 Resp 18 01/26/22 10:00 BP 91/61 01/26/22 10:00 Pulse Ox 93 L 01/26/22 10:00 FiO2 100 01/23/22 11:42 Intake & Output 01/25/22 01/26/22 01/26/22 18:59 06:59 18:59 Intake Total 850 950 100 Output Total 710 1265 300 Balance 140 -315 -200 Weight 72.9 kg Intake: IV 200 100 Dextrose 5% in Water 1, 100 000 ml @ 50 mls/hr IV . Q23H [facility] with Sodium Bicarb (1 Meq/ml) 150 ml Rx#:[id number] Sodium Chloride 0.9% 1, 200 000 ml @ 50 mls/hr IV . Q20H [facility] Rx#:[id number] Intake, IV Titration 350 950 Amount Cefepime 2 gm In Sodium 100 Chloride 0.9% 100 ml @ 25 mls/hr IVPB Q12H [facility] Rx# :[id number] Dextrose 5% in Water 1, 350 650 000 ml @ 50 mls/hr IV . Q23H [facility] with Sodium Bicarb (1 Meq/ml) 150 ml Rx#:[id number] Magnesium Sulfate-D5w Pmx 200 1 gm In Dextrose/Water 1 100ml.bag @ 100 mls/hr IVPB Q1H [facility] Rx#: [id number] Oral 300 Output: Urine 710 1265 300 Other: Voiding Method Indwelling Catheter Indwelling Catheter Indwelling Catheter - Exam Physical Exam: Revealed a 26-year-old female in no distress Head: Atraumatic, normocephalic HEENT:: [No neck masses.] [No thyromegaly.] [No JVD.] Chest: [Clear throughout, no crackles, no rhonchi, no wheezes.] Cardiac Exam: [Normal S1 and S2, no S3 gallop, 2/6 systolic murmur thought the precordium Abdomen: [Soft, nontender, no megaly, no rebound, no guarding, normal bowel sounds.] Extremities: [No clubbing, no edema, no cyanosis.] Neurological Exam: [No focal neurologic deficit.] Alert and oriented 3 Psychiatric: Normal mood affect and normal status examination. Skin: No rashes. Musculoskeletal: No deformities and no limitation in range of motion - Labs CBC & Chem 7: 01/26/22 03:46 01/26/22 03:46 Labs: Abnormal Lab Results - Last 24 Hours (Table) 01/26/22 01/26/22 Range/Units 03:46 03:46 RBC 3.48 L (3.80-5.40) m/uL Hgb 11.2 L (11.4-16.0) gm/dL Hct 33.1 L (34.0-46.0) % Lymphocytes # 0.8 L (1.0-4.8) k/uL Sodium 135 L (137-145) mmol/L AST 148 H (14-36) U/L ALT 120 H (4-34) U/L Alkaline Phosphatase 243 H (38-126) U/L Total Protein 5.5 L (6.3-8.2) g/dL Albumin 3.0 L (3.5-5.0) g/dL Microbiology - Last 24 Hours (Table) 01/22/22 17:50 Blood Culture Gram Stain - Final Blood Blood Culture - Final Escherichia coli 01/22/22 18:00 Blood Culture Gram Stain - Final Blood Blood Culture - Final Escherichia coli Assessment and Plan Assessment: Impression: Acute E. coli sepsis secondary to E. coli urinary tract infection Acute lactic acidosis, resolved Acute cholecystitis requiring cholecystectomy Acute pulmonary edema in the setting of fluid overload and suspect severe b icuspid aortic valve and aortic valve stenosis, may need eventually SREEKANTH, and will need cardiac evaluation. Patient had good LV function based on the echocardiogram but she does have significant aortic valve disease. Acute hypoxic respiratory failure secondary to pulmonary edema, most likely related to underlying valvular heart disease. History of Ingram syndrome History of autism History of right nephrectomy Chronic iron deficiency anemia Benign essential hypertension Recommendation: Continue present supportive care measures Consider transferring the patient out of the ICU to regular medical floor Continue antibiotics as per ID on the case Cardiology to see her on consultation for aortic valve stenosis/bicuspid aortic valve and possibly outpatient follow-up. Continue incentive spirometry We will continue to follow and again I will recommend transferring the patient out of the ICU to regular medical floor Time with Patient: Less than 30
--- NOTE | 2022-01-26 13:08 | P.PN ---
Subjective Progress Note Date: 01/26/22 CHIEF COMPLAINT: Cholecystitis HISTORY OF PRESENT ILLNESS: Patient is postop day #2 status post laparoscopic cholecystectomy. Patient is currently in the ICU. She reports her pain is controlled. She is tolerating a low-fat diet. She's sitting in bedside chair. She's been mildly tachycardic. Afebrile. WBC has normalized from 12.3-7.5 hemoglobin 11.2 platelets 259 seconds 135 potassium 4.0 creatinine 0.84 total bilirubin 0.4 AST 35 up to 148 ALT 44 up to 120 alk phos 187 up to 243 PHYSICAL EXAM: VITAL SIGNS: Reviewed. GENERAL: Well-developed in no acute distress. HEENT: No sclera icterus. Extraocular movements grossly intact. Moist buccal mucosa. Head is atraumatic, normocephalic. ABDOMEN: Soft. Nondistended. Incision sites clean dry and intact. Mild tenderness at incision sites NEUROLOGIC: Alert and oriented. Cranial nerves II through XII grossly intact. ASSESSMENT: 1. Acute cholecystitis status post laparoscopic cholecystectomy 2. Bacteremia 3. UTI 4. Elevated LFTs PLAN: -Continue low-fat diet -Encouraged patient to increase activity level -Repeat LFTs in a.m. -Continue pain medication as needed -Continue supportive care -Patient being transferred to regular medical floor with telemetry Physician Corporate Compliance Officer note has been reviewed by physician. Signing provider agrees with the documented findings, assessment, and plan of care. I have personally seen and examined the patient, reviewed the SHUTTLE INSPECTOR /PAs history, exam and MDM and agree with the assessment and plan as written. Based on total visit time, I have performed more than 50% of the visit. As above: Patient complains of mild soreness. She says her surgical pain is improved however. Labs show increased transaminases and alkaline phosphatase. Continue to follow liver enzymes. Continue low-fat diet. Objective - Vital Signs Vital signs: Vital Signs Temp 98.5 F 01/26/22 08:00 Pulse 102 H 01/26/22 12:00 Resp 24 01/26/22 12:00 BP 96/72 01/26/22 12:00 Pulse Ox 92 L 01/26/22 12:00 FiO2 100 01/23/22 11:42 Intake & Output 01/25/22 01/26/22 01/26/22 18:59 06:59 18:59 Intake Total 850 950 200 Output Total 710 1265 650 Balance 140 -315 -450 Weight 72.9 kg Intake: IV 200 200 Dextrose 5% in Water 1, 200 000 ml @ 50 mls/hr IV . Q23H [facility] with Sodium Bicarb (1 Meq/ml) 150 ml Rx#:[id number] Sodium Chloride 0.9% 1, 200 000 ml @ 50 mls/hr IV . Q20H [facility] Rx#:[id number] Intake, IV Titration 350 950 Amount Cefepime 2 gm In Sodium 100 Chloride 0.9% 100 ml @ 25 mls/hr IVPB Q12H [facility] Rx# :[id number] Dextrose 5% in Water 1, 350 650 000 ml @ 50 mls/hr IV . Q23H [facility] with Sodium Bicarb (1 Meq/ml) 150 ml Rx#:[id number] Magnesium Sulfate-D5w Pmx 200 1 gm In Dextrose/Water 1 100ml.bag @ 100 mls/hr IVPB Q1H [facility] Rx#: [id number] Oral 300 Output: Urine 710 1265 650 Other: Voiding Method Indwelling Catheter Indwelling Catheter Indwelling Catheter - Labs CBC & Chem 7: 01/26/22 03:46 01/26/22 03:46 Labs: Abnormal Lab Results - Last 24 Hours (Table) 01/26/22 01/26/22 Range/Units 03:46 03:46 RBC 3.48 L (3.80-5.40) m/uL Hgb 11.2 L (11.4-16.0) gm/dL Hct 33.1 L (34.0-46.0) % Lymphocytes # 0.8 L (1.0-4.8) k/uL Sodium 135 L (137-145) mmol/L AST 148 H (14-36) U/L ALT 120 H (4-34) U/L Alkaline Phosphatase 243 H (38-126) U/L Total Protein 5.5 L (6.3-8.2) g/dL Albumin 3.0 L (3.5-5.0) g/dL Microbiology - Last 24 Hours (Table) 01/22/22 17:50 Blood Culture Gram Stain - Final Blood Blood Culture - Final Escherichia coli 01/22/22 18:00 Blood Culture Gram Stain - Final Blood Blood Culture - Final Escherichia coli
[2022-01-26] MEDS: DEXTROSE 5% IN WATER 1,000 ML with SODIUM BICARB (1 MEQ/ML) 150 ML IV SCH (14:26)
[2022-01-26] MEDS: LACTATED RINGERS 1,000 ML IV SCH (14:26)
--- NOTE | 2022-01-26 22:09 | CONS ---
CONSULTATION CHIEF COMPLAINT: Shortness of breath. HISTORY OF PRESENT ILLNESS: Misty is a 26-year-old lady with history of Ingram syndrome, bicuspid aortic valve, congenital bicuspid aortic valve, hypertension, who is admitted to hospital with acute pyelonephritis and went into acute diastolic heart failure secondary to fluid overload. I have been consulted because of the aortic stenosis noted on an echocardiogram. She is feeling better, having been treated with antibiotics and diuretics for the heart failure. She initially received significant amount of fluids which put her into heart failure. She denies chest pain or difficulty in breathing. She does not have leg edema, PND, or orthopnea, and prior to this episode of pyelonephritis, she did not have any symptoms related to her aortic stenosis. PAST MEDICAL HISTORY: Significant for aortic stenosis and hypertension along with depression. MEDICATIONS AT HOME: 1. Iron. 2. Melatonin. 3. Ditropan. 4. Vasotec. 5. Zoloft. 6. Catapres. ALLERGIES: To penicillin. FAMILY HISTORY: Negative for premature coronary artery disease. SOCIAL HISTORY: Negative for current smoking, EtOH abuse, or drug abuse. REVIEW OF SYSTEMS: A review of systems has been performed, pertinence are as documented. PHYSICAL EXAMINATION: VITAL SIGNS: Heart rate is 102 beats per minute, blood pressure is 96/72, respiratory rate is 22. NECK: There is no jugular venous distention. Carotid upstroke is diminished. There is no bruit. CHEST: Reveals good air entry bilaterally without any crackles or rhonchi. HEART: Reveals first and second heart sounds and grade 5/6 ejection systolic murmur in the aortic area. ABDOMEN: Soft. EXTREMITIES: Did not reveal any edema. Peripheral pulses are felt. LABORATORY DATA: Labs show a hemoglobin of 11.2, platelet count is 259, potassium is 4, creatinine is 0.84. An echocardiogram on this admission revealed normal LV systolic function with severe aortic stenosis with a peak gradient of 69 mm and a mean gradient of 44 mm across the valve. ASSESSMENT: 1. Acute diastolic heart failure secondary to fluid overload. 2. Severe aortic stenosis. 3. Pyelonephritis. PLAN: Continue the patient on current antibiotics. The patient will need evaluation for the aortic stenosis when she gets better. We will follow her in the outpatient set up and work her up further. MMODL / IJN: [id number] /
[2022-01-27] MEDS: ACETAMINOPHEN TAB 325 MG TAB PO PRN (01:00)
[2022-01-27 07:52] LABS: Albumin 2.8 g/dL (3.5-5.0); Calcium 8.6 mg/dL (8.4-10.2); Magnesium 1.9 mg/dL (1.6-2.3); Potassium 3.9 mmol/L (3.5-5.1); Total Bilirubin 0.5 mg/dL (0.2-1.3); Total Protein 5.2 g/dL (6.3-8.2)
--- NOTE | 2022-01-27 10:08 | P.PN ---
Subjective This is a pleasant 26 years old female with past medical history of Ingram Syndrome, Autism, kidney right removed, Depression. Her PCP is Dr. Lindsay and her mom is her guardian as per patient Patient presents because of cough and right flank pain. Patient states that she had some mild right flank pain yesterday which is went away now. Also she is been complaining of from dry cough no chest pain or dyspnea so she decided to come to emergency room She denies any dysuria or urgency or change in her urine symptoms but she says it is darker than usual. No abdominal pain or vomiting or diarrhea No dizziness but she has mild headache, she is fully awake and oriented, no weakness or abnormal sensation, no blurred vision or slurred speech. Patient denies any vaginal discharge or symptoms, her last menstrual cycle was on last June however she states that she is no way she would be pertinent because of congenital disease and because she is not sexually active as she states. Urine test is negative She denies smoking alcohol or illicit drug On admission patient had a fever of 102.6. She is tachycardic around 118 Blood pressure is soft and borderline 102/68 and overnight was 91 over 60s She has leukocytosis of 19.2, rest of CBC is unremarkable Sodium slightly low 135, creatinine elevated 0.36. Total bilirubin is high at 1.7 AST 57 and ALT 68. Urine analysis is suspicious of infection Nichols Virus, and influenza virus his R aundetected CT of the abdomen and pelvis without contrast: Lobulated right kidney. On obstruction. No change compared to old exam. Normal appendix. No hydronephrosis. Ureters are not dilated. There is subcutaneous edema over the lumbar spine Chest x-ray no active cardiopulmonary process Patient is started in the emergency room on ceftriaxone and started on normal saline at 75 mL/h increased 1 50 mL/h Overnight her blood pressure drop and patient become tachycardic and patient was moved to the ICU. This morning I saw the patient in the MICU she was fully awake and oriented, she was busy working on her smarts 4, she is on BiPAP and she received 1 dose of Lasix and she is diuresed well and produce more than a liter per bedside nurse. Yoder catheter into place. 01/24/2022 patient was lethargic and more tired this morning. Later on through the day she underwent laparoscopic cholecystectomy. She required a small dose of pressors, no audible fluid for her high risk of pulmonary edema from her aortic stenosis. Her vitals are improving, blood pressure is better 91/68, less tachypneic and tachycardic. Dr. Weiss today. Leukocytosis improved down to 13,000 and creatinine down to 1.1. She remains on ceftriaxone. 01/25/2022 Patient is more comfortable today, more energetic. She is status post laparoscopic cholecystectomy. Postop day #1. She has expected pain at the surgical site with some nausea vomiting. No other new complaint. Blood pressure is better 130/100, she still slightly tachycardic and tachypneic. WBCs 12.3. Patient remains on ceftriaxone 01/26/2022 Patient awake alert, looks tired, she denies any specific complaints, she has mild right upper quadrant abdominal pain and tenderness at the surgical site. The Yoder catheter in place, no other urinary complaints or abdominal pain. Denies diet well. Vitals are improving slowly and gradually including her tachycardia and tachypnea WBC is back to normal today 7.5 and creatinine 0.8. Liver enzymes are elevated. Blood culture showing E. coli which is sensitive to ceftriaxone. Patient currently cut and 2 g of ceftriaxone daily. 01/27/2022 Patient still has soft blood pressure, this morning 93/70, her tachycardia is better but not resolved, she is breathing quietly compared to yesterday. The fever subsided. Liver enzymes slightly went up. Rest of the BMP is unremarkable. She remains on ceftriaxone. No abdominal fluid. Architectural Modeler saw the patient yesterday and she will need follow-up as an outpatient once she become stabilized. PT/OT ordered today Objective - Vital Signs Vital signs: Vital Signs Temp 97.6 F 01/27/22 09:31 Pulse 106 H 01/27/22 09:31 Resp 20 01/27/22 09:31 BP 106/72 01/27/22 09:31 Pulse Ox 97 01/27/22 07:55 FiO2 100 01/23/22 11:42 Intake & Output 01/26/22 01/27/22 01/27/22 18:59 06:59 18:59 Intake Total 500 575 Output Total 2030 870 Balance -1530 -295 Intake: IV 500 575 Dextrose 5% in Water 1, 450 575 000 ml @ 50 mls/hr IV . Q23H GLENN with Sodium Bicarb (1 Meq/ml) 150 ml Rx#:[id number] cefTRIAXone 2 gm In 50 Sodium Chloride 0.9% 50 ml @ 100 mls/hr IVPB Q24HR@1600 GLENN Rx#: [id number] Output: Urine 2030 870 Other: Voiding Method Indwelling Catheter Indwelling Catheter - Exam GENERAL: The patient is alert and oriented x3, not in any acute distress. Well developed, well nourished. HEENT: Pupils are round and equally reacting to light. EOMI. No scleral icterus. No conjunctival pallor. Normocephalic, atraumatic. No pharyngeal erythema. No thyromegaly. CARDIOVASCULAR: S1 and S2 present. No murmurs, rubs, or gallops. PULMONARY: Chest is clear to auscultation, no wheezing or crackles. -ABDOMEN: Soft, right upper quadrant tenderness, nondistended, normoactive bowel sounds. No palpable organomegaly. Small laparoscopic cholecystectomy surgical w ounds, hemoglobin MUSCULOSKELETAL: No joint swelling or deformity. EXTREMITIES: No cyanosis, clubbing, or pedal edema. NEUROLOGICAL: Gross neurological examination did not reveal any focal deficits. SKIN: No rashes. no petechiae. - Labs CBC & Chem 7: 01/26/22 03:46 01/27/22 06:40 Labs: Abnormal Lab Results - Last 24 Hours (Table) 01/27/22 Range/Units 06:40 Carbon Dioxide 35 H (22-30) mmol/L AST 185 H (14-36) U/L ALT 146 H (4-34) U/L Alkaline Phosphatase 303 H (38-126) U/L Total Protein 5.2 L (6.3-8.2) g/dL Albumin 2.8 L (3.5-5.0) g/dL Assessment and Plan Assessment: right side Acute pyelonephritis secondary to E. coli Septic shock and septicemia with fever and leukocytosis, improving Acute kidney injury and dehydration, resolved back to normal Acute cholecystitis status post lap cholecystectomy on 01/24 Severe aortic stenosis in view of her Ingram syndrome History of Ingram syndrome History of autism History of removal of right kidney History of depression, not an active issue Morbid obesity with BMI of 49.5 Plan: Continue with broad-spectrum antibiotic, currently on ceftriaxone Monitor liver enzymes Continue off IV fluids and monitor blood pressure closely Continue ICU management with pulmonary/critical care consult . Patient can be transferred to the general medical floor Surgical team on the case Infectious disease team consult Cardiology consult Labs and medication were reviewed.. Continue same treatment. Continue with symptomatic treatment. Resume home medication. Monitor lytes and vitals. DVT and GI prophylaxis. Further recommendations as per clinical course of the patient DVT prophylaxis: Subcutaneous heparin GI Prophylaxis: Pepcid PT/OT: Pending Prognosis is guarded
[2022-01-27] MEDS: HEPARIN SODIUM,PORCINE/PF 5,000 UNIT/0.5 ML SYRINGE SQ SCH ×2 (10:24→20:29)
[2022-01-27] MEDS: FAMOTIDINE 20 MG/2 ML VIAL IV SCH (10:24)
[2022-01-27] MEDS: FERROUS SULFATE 325 MG TAB PO SCH (10:25)
[2022-01-27] MEDS: OXYBUTYNIN XL 5 MG TAB.ER.24 PO SCH ×2 (10:26→20:29)
[2022-01-27] MEDS: Lisdexamfetamine Dimesylate [Vyvanse] 70 MG Capsule PO SCH (10:31)
--- NOTE | 2022-01-27 11:26 | P.PN ---
Subjective Progress Note Date: 01/27/22 Principal diagnosis: E. coli sepsis and bacteremia, most likely source is acute urinary tract infection This is a 26-year-old female patient who is known history of Ingram syndrome, and the patient was hospitalized yesterday because of a right flank pain consistent with pyelonephritis. The patient subsequently got transferred to the intensive care unit as the patient developed acute pulmonary edema and acute hypoxic respiratory failure. She was tachypneic and tachycardic and very short of breath and she was initially placed on 100% nonrebreather facemask. She got transferred to the intensive care unit hypoxic and she was placed on a BiPAP at a pressure of 10/5 cm of water. The BiPAP helped considerably. Note that the initial chest exit time of admission was essentially within normal limits and subsequent chest x-ray that was done within less than 24 hours showed acute pulmonary edema. The patient was given Lasix 60 mg IV push and the patient produced adequate amount of urine output. There is at least 2 L of diuresis on this patient. She is improved today, she is currently off the BiPAP and the patient is on oxygen at 3 L nasal cannula. White cell count remains elevated at 26.8 with a hemoglobin of 12.4 and a platelet count of 244. The BMs at 70 with a creatinine of 1.4 and the renal function continues to be impaired. This is consistent with an acute kidney injury as the patient's baseline renal function showed a creatinine ranging between 1 and 1.2. The patient has a component of melena negative metabolic acidosis at 18. The UA was obviously abnormal with extensive number of white cells and lumps. test is negative. Covid 19 testing is negative. Influenza screen was negative. Ultrasound of the abdomen showed thickening of the gallbladder wall with pericholecystic fluid and positive sonographic Aguilar's sign that suggest possibly acute cholecystitis. HIDA scan was recommended. The common bile duct was nondilated. Large was filled within the gallbladder wall. Renal ultrasound was not done. CAT scan of the abdomen and pelvis that was done at the time of admission showed lobulated the right kidney, no obstruction, no evidence of any hydronephrosis. Lung bases were essentially clear. The blood culture is positive for now with gram- negative bacillus. The patient was given a dose of IV Rocephin in the emergency and overnight I give the patient IV cefepime 2 g every 12 hours. She is on IV fluid cytology 100 mL an hour's and she is on no pressors. IV fluids will be kept on to 50 mL accordingly. On 01/24/2022, I'm seeing the patient for a follow-up. Noted the patient had a gram-negative sepsis and the patient turnout to have E. coli in her urine and in her blood. She remains on IV antibiotics and currently she is on IV Rocephin 2 g every 24 hours. At the same time, it was noted the gallbladder may be another source of infection. I had a lengthy discussion with the surgeon and we decided to proceed with a laparoscopic cholecystectomy. The patient underwent the surgery this morning without any complications. She was extubated in the operating room and currently she is on oxygen at 2 L nasal cannula. She is hemodynamically stable. She was requiring low-dose norepinephrine and she is at a dose of 0.02 mcg/kg/m. She is also on IV fluids with normal saline at the rate of 50 mL an hour. The white cell count is down to 13.9 with a hemoglobin of 11.3 and the sodium is at 141 with a BUN of 14 and a creatinine of 1.1. She has essentially recovered from her acute kidney injury. LFTs were elevated related to her underlying cholecystitis. Nevertheless, as mentioned earlier, the culprit source of sepsis was the urinary tract. In 2021, the patient is recovering from her acute laparoscopic cholecystectomy that was done for underlying cholelithiasis. Nevertheless, the patient was also septic with E. coli UTI and the patient is adequately treated and resuscitated. The patient remains on IV Rocephin. The white cell count is down to 12.3. She is hemodynamically stable and she is on no pressors at this point in time. Noted the patient also is known to have a lot of stenosis and bicuspid aortic valve. The white cell count is down to 12.3. Hemoglobin is 11.9. The serum bicarbs at 17 with a BUN of 10 and a creatinine of 0.9. The pro-calcitonin level was as high as 9.1 she is otherwise, comfortable. She is on 2 L of oxygen by nasal cannula and a pulse ox is around 99%. Surgical one- sided dry clean and intact. No other significant events overnight. No fever. No pressors. Reevaluated today on 01/26/22, patient remains in the ICU, but she is doing extremely well. Patient is relatively asymptomatic. She is now on room air, blood pressure is stable, she remains on antibiotics as per infectious disease on the case, patient is alert oriented 3, does not seem to be in any distress. CBC is relatively normal electrolytes are basically normal, renal profile is normal however her liver profile seems to be a bit abnormal. Patient is status post cholecystectomy. Today I plan to transfer the patient out of the ICU to a regular medical floor. Reevaluated today on 01/27/22, patient remains in the ICU, doing well, she is an overflow. Remains on antibiotics. Labs today are unremarkable except for steadily rising liver enzymes. This is to be addressed by surgery and by the admitting physician on the case. Considering the rise in her alkaline phosphat ase, I am a bit concerned about the possibility of obstructive picture. However her bilirubin remains normal Objective - Vital Signs Vital signs: Vital Signs Temp 97.6 F 01/27/22 09:31 Pulse 106 H 01/27/22 09:31 Resp 20 01/27/22 09:31 BP 106/72 01/27/22 09:31 Pulse Ox 97 01/27/22 07:55 FiO2 100 01/23/22 11:42 Intake & Output 01/26/22 01/27/22 01/27/22 18:59 06:59 18:59 Intake Total 500 575 Output Total 2029 870 Balance -1530 -295 Intake: IV 500 575 Dextrose 5% in Water 1, 450 575 000 ml @ 50 mls/hr IV . Q23H GLENN with Sodium Bicarb (1 Meq/ml) 150 ml Rx#:[id number] cefTRIAXone 2 gm In 50 Sodium Chloride 0.9% 50 ml @ 100 mls/hr IVPB Q24HR@1600 GLENN Rx#: [id number] Output: Urine 20290 Other: Voiding Method Indwelling Catheter Indwelling Catheter - Exam Physical Exam: Revealed a 26-year-old female in no distress Head: Atraumatic, normocephalic HEENT:: [No neck masses.] [No thyromegaly.] [No JVD.] Chest: [Clear throughout, no crackles, no rhonchi, no wheezes.] Cardiac Exam: [Normal S1 and S2, no S3 gallop, 2/6 systolic murmur thought the precordium Abdomen: [Soft, nontender, no megaly, no rebound, no guarding, normal bowel sounds.] Extremities: [No clubbing, no edema, no cyanosis.] Neurological Exam: [No focal neurologic deficit.] Alert and oriented 3 Psychiatric: Normal mood affect and normal status examination. Skin: No rashes. Musculoskeletal: No deformities and no limitation in range of motion - Labs CBC & Chem 7: 01/26/22 03:46 01/27/22 06:40 Labs: Abnormal Lab Results - Last 24 Hours (Table) 01/27/22 Range/Units 06:40 Carbon Dioxide 35 H (22-30) mmol/L AST 185 H (14-36) U/L ALT 146 H (4-34) U/L Alkaline Phosphatase 303 H (38-126) U/L Total Protein 5.2 L (6.3-8.2) g/dL Albumin 2.8 L (3.5-5.0) g/dL Assessment and Plan Assessment: Impression: Acute E. coli sepsis secondary to E. coli urinary tract infection Acute lactic acidosis, resolved Acute cholecystitis requiring cholecystectomy Acute pulmonary edema in the setting of fluid overload and suspect severe bicuspid aortic valve and aortic valve stenosis, may need eventually SREEKANTH, and will need cardiac evaluation. Patient had good LV function based on the echocardiogram but she does have significant aortic valve disease. Acute hypoxic respiratory failure secondary to pulmonary edema, most likely rela michele to underlying valvular heart disease. History of Ingram syndrome History of autism History of right nephrectomy Chronic iron deficiency anemia Benign essential hypertension Elevated liver enzymes, to be addressed by admitting physician and surgery on the case Recommendation: Continue present supportive care measures Transferred to regular medical floor today. Continue antibiotics as per ID on the case Continue incentive spirometry We will continue to follow Time with Patient: Less than 30
--- NOTE | 2022-01-27 11:54 | P.PN ---
Subjective Progress Note Date: 01/27/22 CHIEF COMPLAINT: Cholecystitis HISTORY OF PRESENT ILLNESS: Patient is postop day #3 status post laparoscopic cholecystectomy. Patient is currently in the ICU as a MedSurg overflow. She sitting up at bedside chair. She does report pain in the right side of the abdomen. Pain is controlled and she is feeling better each day. She is having flatus. No bowel movement. Denies any nausea or vomiting. Tolerating a low- fat diet. Yoder catheter discontinued this morning. Afebrile. Mild tachycardia. Sodium is 140 potassium 3.9 creatinine 1.0 total bilirubin 0.5 AST 148 up to 185 ALT 120-146 alk phos 243 up to 303 PHYSICAL EXAM: VITAL SIGNS: Reviewed. GENERAL: Well-developed in no acute distress. HEENT: No sclera icterus. Extraocular movements grossly intact. Moist buccal mucosa. Head is atraumatic, normocephalic. ABDOMEN: Soft. Nondistended. Incision sites clean dry and intact. tenderness at right upper quadrant NEUROLOGIC: Alert and oriented. Cranial nerves II through XII grossly intact. ASSESSMENT: 1. Acute cholecystitis status post laparoscopic cholecystectomy 2. Bacteremia 3. UTI 4. Elevated LFTs PLAN: -Continue low-fat diet -Encouraged patient to increase activity level -Repeat LFTs in a.m. -Agree with PT OT consult -Continue pain medication as needed -Continue supportive care Physician Clinical Research Administrator note has been reviewed by physician. Signing provider agrees with the documented findings, assessment, and plan of care. I have personally seen and examined the patient, reviewed the SUPERVISOR [employer] /PAs history, exam and MDM and agree with the assessment and plan as written. Based on total visit time, I have performed more than 50% of the visit. As above: Patient doing well. Respiratory status improved. Denies abdominal pain at this time. Liver enzymes have increased somewhat. Plan repeat labs tomorrow. If liver enzymes increase further Will ask GI for their opinion however clinically doubt choledocholithiasis at this time. Objective - Vital Signs Vital signs: Vital Signs Temp 97.6 F 01/27/22 09:31 Pulse 106 H 01/27/22 09:31 Resp 20 01/27/22 09:31 BP 106/72 01/27/22 09:31 Pulse Ox 97 01/27/22 07:55 FiO2 100 01/23/22 11:42 Intake & Output 01/26/22 01/27/22 01/27/22 18:59 06:59 18:59 Intake Total 500 575 Output Total 2029 870 Balance -1530 -295 Intake: IV 500 575 Dextrose 5% in Water 1, 450 575 000 ml @ 50 mls/hr IV . Q23H GLENN with Sodium Bicarb (1 Meq/ml) 150 ml Rx#:[id number] cefTRIAXone 2 gm In 50 Sodium Chloride 0.9% 50 ml @ 100 mls/hr IVPB Q24HR@1600 GLENN Rx#: [id number] Output: Urine 2029 Other: Voiding Method Indwelling Catheter Indwelling Catheter - Labs CBC & Chem 7: 01/26/22 03:46 01/27/22 06:40 Labs: Abnormal Lab Results - Last 24 Hours (Table) 01/27/22 Range/Units 06:40 Carbon Dioxide 35 H (22-30) mmol/L AST 185 H (14-36) U/L ALT 146 H (4-34) U/L Alkaline Phosphatase 303 H (38-126) U/L Total Protein 5.2 L (6.3-8.2) g/dL Albumin 2.8 L (3.5-5.0) g/dL
--- NOTE | 2022-01-27 12:24 | PN ---
PROGRESS NOTE SUBJECTIVE: A 26-year-old lady, who was admitted to hospital with pyelonephritis and went into acute diastolic heart failure secondary to fluid overload. She has a bicuspid aortic valve with [id number] aortic stenosis. This morning, she is feeling better, remains in sinus rhythm. Still, blood pressures are marginal. OBJECTIVE: GENERAL: Comfortable at rest. VITAL SIGNS: Heart rate is 97 beats per minute, blood pressure is 106/70, respiratory rate is 18. CHEST: Reveals diminished air entry at the bases without any crackles or rhonchi. HEART: Reveals first and second heart sounds, and a 4/6 ejection systolic murmur in the aortic area. ABDOMEN: Soft. EXTREMITIES: Did not reveal any edema. Peripheral pulses are felt. LABORATORY DATA: Labs show a hemoglobin of 11.2, platelet count is 250. Potassium is 3.9, and creatinine is 1. AST and ALT are elevated. ASSESSMENT: 1. Pulmonary edema secondary to fluid overload. 2. Acute pyelonephritis. 3. Bicuspid aortic valve with [id number] aortic stenosis. PLAN: The patient will be continued on current supportive care. MMODL / IJN: [id number] /
[2022-01-27] MEDS: LACTATED RINGERS 1,000 ML IV SCH (17:20)
[2022-01-27] MEDS: FAMOTIDINE 20 MG TAB PO SCH (20:50)
[2022-01-28 02:52] VITALS: PULSE 105; RESP 18; TEMP 98
[2022-01-28 06:05] LABS: Basophils # (A) 0.1 k/uL (0-0.2); Basophils % (A) 1 %; Eosinophils # (A) 0.1 k/uL (0-0.7); Eosinophils % (A) 2 %; HCT 33.5 % (34.0-46.0); HGB 11.2 gm/dL (11.4-16.0); Lymphocytes % (A) 14 %; MCH 32.3 pg (25.0-35.0); MCHC 33.6 g/dL (31.0-37.0); MCV 96.2 fL (80.0-100.0); Mean Platelet Volume 8.7; Monocytes # (A) 0.5 k/uL (0-1.0); Monocytes % (A) 8 %; Neutrophils # (A) 4.9 k/uL (1.3-7.7); Neutrophils % (A) 71 %; Platelet Count 306 k/uL (150-450); RBC 3.48 m/uL (3.80-5.40); RDW 12.9 % (11.5-15.5); WBC 6.9 k/uL (3.8-10.6)
--- NOTE | 2022-01-28 06:27 | P.PN ---
Subjective Progress Note Date: 01/26/22 Principal diagnosis: E. coli pyelonephritis and bacteremia Patient is a 26-year-old female with a past medical history significant for Ingram's syndrome presenting to the ER for evaluation of right flank pain patient has been diagnosed with right-sided polynephritis and subsequently did have E. coli bacteremia, the patient is status post laparoscopic-assisted cholecystectomy completed on 01/24/2022. On today's evaluation that is 01/26/2022, the patient continues to be afebrile , the patient is breathing comfortably on room air, the patient denies any chest pain or shortness of breath occasional cough. The patient Pain to the right flank area has decreased in intensity, no nausea no vomiting and no diarrhea Objective - Vital Signs Vital signs: Vital Signs Temp 98.5 F 01/26/22 08:00 Pulse 108 H 01/26/22 10:00 Resp 18 01/26/22 10:00 BP 91/61 01/26/22 10:00 Pulse Ox 93 L 01/26/22 10:00 FiO2 100 01/23/22 11:42 Intake & Output 01/25/22 01/26/22 01/26/22 18:59 06:59 18:59 Intake Total 850 950 100 Output Total 710 1265 300 Balance 140 -315 -200 Weight 72.9 kg Intake: IV 200 100 Dextrose 5% in Water 1, 100 000 ml @ 50 mls/hr IV . Q23H GLENN with Sodium Bicarb (1 Meq/ml) 150 ml Rx#:[id number] Sodium Chloride 0.9% 1, 200 000 ml @ 50 mls/hr IV . Q20H GLENN Rx#:[id number] Intake, IV Titration 350 950 Amount Cefepime 2 gm In Sodium 100 Chloride 0.9% 100 ml @ 25 mls/hr IVPB Q12H GLENN Rx# :[id number] Dextrose 5% in Water 1, 350 650 000 ml @ 50 mls/hr IV . Q23H GLENN with Sodium Bicarb (1 Meq/ml) 150 ml Rx#:[id number] Magnesium Sulfate-D5w Pmx 200 1 gm In Dextrose/Water 1 100ml.bag @ 100 mls/hr IVPB Q1H GLENN Rx#: [id number] Oral 300 Output: Urine 710 1265 300 Other: Voiding Method Indwelling Catheter Indwelling Catheter Indwelling Catheter - Exam GENERAL DESCRIPTION: A middle-age female lying in bed in no distress RESPIRATORY SYSTEM: Unlabored breathing , decreased breath sounds at bases HEART: S1 S2 regular rate and rhythm , ABDOMEN: Soft , no tenderness EXTREMITIES: No edema feet - Labs CBC & Chem 7: 01/28/22 05:38 01/27/22 06:40 Labs: Abnormal Lab Results - Last 24 Hours (Table) 01/26/22 01/26/22 Range/Units 03:46 03:46 RBC 3.48 L (3.80-5.40) m/uL Hgb 11.2 L (11.4-16.0) gm/dL Hct 33.1 L (34.0-46.0) % Lymphocytes # 0.8 L (1.0-4.8) k/uL Sodium 135 L (137-145) mmol/L AST 148 H (14-36) U/L ALT 120 H (4-34) U/L Alkaline Phosphatase 243 H (38-126) U/L Total Protein 5.5 L (6.3-8.2) g/dL Albumin 3.0 L (3.5-5.0) g/dL Microbiology - Last 24 Hours (Table) 01/22/22 17:50 Blood Culture Gram Stain - Final Blood Blood Culture - Final Escherichia coli 01/22/22 18:00 Blood Culture Gram Stain - Final Blood Blood Culture - Final Escherichia coli Assessment and Plan (1) Pyelonephritis Current Visit: Yes Status: Acute Code(s): N12 - TUBULO-INTERSTITIAL NEPHRITIS, NOT SPCF ACUTE OR CHRONIC SNOMED Code(s): 42517190 Plan: 1patient present to hospital with sepsis/septic shock in this patient who did have a fever tachycardia elevated white count hypotension source likely right- sided pyelonephritis with secondary bacteremia likely from enteric gram-negative pathogen. Patient blood and urine has been finalized with an E. coli which is a sensitive pathogen 2patient with a penicillin allergy that would limit the number of antibiotics safe to use. 3patient has shown clinical improvement and Rocephin which will be continued while inpatient and monitor clinical course closely Time with Patient: Less than 30
--- NOTE | 2022-01-28 06:28 | P.PN ---
Subjective Progress Note Date: 01/27/22 Principal diagnosis: E. coli pyelonephritis and bacteremia Patient is a 26-year-old female with a past medical history significant for Ingram's syndrome presenting to the ER for evaluation of right flank pain patient has been diagnosed with right-sided polynephritis and subsequently did have E. coli bacteremia, the patient is status post laparoscopic-assisted cholecystectomy completed on 01/24/2022. On today's evaluation that is 01/27/2022, the patient remains to be afebrile , the patient is breathing comfortably on room air, the patient denies any chest pain or shortness of breath occasional cough. The patient denies nausea no vomiting and did have a bowel movement today Objective - Vital Signs Vital signs: Vital Signs Temp 97.6 F 01/27/22 09:31 Pulse 106 H 01/27/22 09:31 Resp 20 01/27/22 09:31 BP 106/72 01/27/22 09:31 Pulse Ox 97 01/27/22 07:55 FiO2 100 01/23/22 11:42 Intake & Output 01/26/22 01/27/22 01/27/22 18:59 06:59 18:59 Intake Total 500 575 Output Total 2029 870 Balance -1530 -295 Intake: IV 500 575 Dextrose 5% in Water 1, 450 575 000 ml @ 50 mls/hr IV . Q23H GLENN with Sodium Bicarb (1 Meq/ml) 150 ml Rx#:[id number] cefTRIAXone 2 gm In 50 Sodium Chloride 0.9% 50 ml @ 100 mls/hr IVPB Q24HR@1600 GLENN Rx#: [id number] Output: Urine 20290 Other: Voiding Method Indwelling Catheter Indwelling Catheter - Exam GENERAL DESCRIPTION: A middle-age female lying in bed in no distress RESPIRATORY SYSTEM: Unlabored breathing , decreased breath sounds at bases HEART: S1 S2 regular rate and rhythm , ABDOMEN: Soft , no tenderness EXTREMITIES: No edema feet - Labs CBC & Chem 7: 01/28/22 05:38 01/27/22 06:40 Labs: Abnormal Lab Results - Last 24 Hours (Table) 01/27/22 Range/Units 06:40 Carbon Dioxide 35 H (22-30) mmol/L AST 185 H (14-36) U/L ALT 146 H (4-34) U/L Alkaline Phosphatase 303 H (38-126) U/L Total Protein 5.2 L (6.3-8.2) g/dL Albumin 2.8 L (3.5-5.0) g/dL Assessment and Plan (1) Pyelonephritis Current Visit: Yes Status: Acute Code(s): N12 - TUBULO-INTERSTITIAL N EPHRITIS, NOT SPCF ACUTE OR CHRONIC SNOMED Code(s): 64799209 Plan: 1patient present to hospital with sepsis/septic shock in this patient who did have a fever tachycardia elevated white count hypotension source likely right- sided pyelonephritis with secondary bacteremia likely from enteric gram-negative pathogen. Patient blood and urine has been finalized with an E. coli which is a sensitive pathogen 2patient with a penicillin allergy that would limit the number of antibiotics safe to use. 3patient has shown clinical improvement and Rocephin which will be continued while inpatient and plan is to finish therapy with oral antibiotics only for IV on discharge discussed with the case management specialist Time with Patient: Less than 30
[2022-01-28 06:29] LABS: ALT 130 U/L (4-34); AST 115 U/L (14-36); African American GFR (CKD) >90 (>60 ml/min/1.73 sqM); Alkaline Phosphatase 317 U/L (38-126); Anion Gap 6 mmol/L; Bilirubin, Delta 0.5 mg/dL (0.0-0.2); Blood Urea Nitrogen 11 mg/dL (7-17); Calcium 8.8 mg/dL (8.4-10.2); Carbon Dioxide 29 mmol/L (22-30); Chloride 102 mmol/L (98-107); Glucose 96 mg/dL (74-99); Magnesium 1.6 mg/dL (1.6-2.3); Non-African American GFR(CKD) 89 (>60 ml/min/1.73 sqM); Potassium 4.1 mmol/L (3.5-5.1); Sodium 137 mmol/L (137-145); Total Bilirubin 0.5 mg/dL (0.2-1.3); Total Protein 5.5 g/dL (6.3-8.2)
[2022-01-28 07:54] VITALS: BMI 32.4
[2022-01-28] MEDS: HEPARIN SODIUM,PORCINE/PF 5,000 UNIT/0.5 ML SYRINGE SQ SCH (07:55)
[2022-01-28] MEDS: OXYBUTYNIN XL 5 MG TAB.ER.24 PO SCH ×2 (07:55→07:56)
[2022-01-28] MEDS: FERROUS SULFATE 325 MG TAB PO SCH (07:56)
[2022-01-28] MEDS: Lisdexamfetamine Dimesylate [Vyvanse] 70 MG Capsule PO SCH (07:56)
[2022-01-28] MEDS: FAMOTIDINE 20 MG TAB PO SCH (07:56)
[2022-01-28] MEDS: ACETAMINOPHEN TAB 325 MG TAB PO PRN (08:12)
[2022-01-28] MEDS ORDERED: cefTRIAXone 1,000 MG VIAL (IM USE) IM SCH (09:00)
--- NOTE | 2022-01-28 11:08 | P.PN ---
Subjective Progress Note Date: 01/28/22 CHIEF COMPLAINT: Cholecystitis HISTORY OF PRESENT ILLNESS: Patient is postop day #4 status post laparoscopic cholecystectomy. Patient is currently in the ICU as a MedSurg overflow. Patient is lying in bed comfortably. She has no abdominal pain currently. Denies any nausea or vomiting. Tolerating regular diet. Afebrile. WBC 6.9 Hgb 11.2 platelets 306 sodium is 137 potassium is 4.1 creatinine 0.89 total bili 0.5 AST down from 185 to 115 ALT 146 down to 1:30 alk phos 303 up to 370 PHYSICAL EXAM: VITAL SIGNS: Reviewed. GENERAL: Well-developed in no acute distress. HEENT: No sclera icterus. Extraocular movements grossly intact. Moist buccal mucosa. Head is atraumatic, normocephalic. ABDOMEN: Soft. Nondistended. Incision sites clean dry and intact. NEUROLOGIC: Alert and oriented. Cranial nerves II through XII grossly intact. ASSESSMENT: 1. Acute cholecystitis status post laparoscopic cholecystectomy 2. Bacteremia 3. UTI 4. Elevated LFTs trending downwards PLAN: -Patient is stable for discharge from surgical standpoint -Continue low-fat diet -Encouraged patient to increase activity level -LFTs are improving. Recommend repeating LFTs outpatient in 1 week -Antibiotics per ID service Physician Discovery Guide note has been reviewed by physician. Signing provider agrees with the documented findings, assessment, and plan of care. I have personally seen and examined the patient, reviewed the SENIOR EXECUTIVE ASSISTANT /PAs history, exam and MDM and agree with the assessment and plan as written. Based on total visit time, I have performed more than 50% of the visit. As above: Patient doing well today. Minimal pain. Liver enzymes about the same may be slightly better. Patient would like to go home. No shortness of breath. I'm comfortable with discharge at this time. Plan repeat labs as outpatient. Objective - Vital Signs Vital signs: Vital Signs Temp 98 F 01/28/22 08:00 Pulse 105 H 01/28/22 08:00 Resp 18 01/28/22 08:00 BP 90/65 01/28/22 08:00 Pulse Ox 98 01/28/22 08:00 FiO2 100 01/23/22 11:42 Intake & Output 01/27/22 01/28/22 01/28/22 18:59 06:59 18:59 Output Total 350 0 Balance -350 0 Weight 72.9 kg Output: Urine 350 0 Other: Voiding Method Indwelling Catheter Toilet Toilet # Voids 1 2 # Bowel Movements 1 1 - Labs CBC & Chem 7: 01/28/22 05:38 01/28/22 05:38 Labs: Abnormal Lab Results - Last 24 Hours (Table) 01/28/22 01/28/22 Range/Units 05:38 05:38 RBC 3.48 L (3.80-5.40) m/uL Hgb 11.2 L (11.4-16.0) gm/dL Hct 33.5 L (34.0-46.0) % Delta Bilirubin 0.5 H (0.0-0.2) mg/dL AST 115 H (14-36) U/L ALT 130 H (4-34) U/L Alkaline Phosphatase 317 H (38-126) U/L Total Protein 5.5 L (6.3-8.2) g/dL Albumin 3.0 L (3.5-5.0) g/dL Microbiology - Last 24 Hours (Table) 01/27/22 06:40 Blood Culture - Preliminary Blood No Growth after 24 hours
[2022-01-28] MEDS: LACTATED RINGERS 1,000 ML IV SCH (12:11)
--- NOTE | 2022-01-28 12:38 | P.PN ---
Subjective Progress Note Date: 01/28/22 Principal diagnosis: E. coli sepsis and bacteremia, most likely source is acute urinary tract infection This is a 26-year-old female patient who is known history of Ingram syndrome, and the patient was hospitalized yesterday because of a right flank pain consistent with pyelonephritis. The patient subsequently got transferred to the intensive care unit as the patient developed acute pulmonary edema and acute hypoxic respiratory failure. She was tachypneic and tachycardic and very short of breath and she was initially placed on 100% nonrebreather facemask. She got transferred to the intensive care unit hypoxic and she was placed on a BiPAP at a pressure of 10/5 cm of water. The BiPAP helped considerably. Note that the initial chest exit time of admission was essentially within normal limits and subsequent chest x-ray that was done within less than 24 hours showed acute pulmonary edema. The patient was given Lasix 60 mg IV push and the patient produced adequate amount of urine output. There is at least 2 L of diuresis on this patient. She is improved today, she is currently off the BiPAP and the patient is on oxygen at 3 L nasal cannula. White cell count remains elevated at 26.8 with a hemoglobin of 12.4 and a platelet count of 244. The BMs at 70 with a creatinine of 1.4 and the renal function continues to be impaired. This is consistent with an acute kidney injury as the patient's baseline renal function showed a creatinine ranging between 1 and 1.2. The patient has a component of melena negative metabolic acidosis at 18. The UA was obviously abnormal with extensive number of white cells and lumps. test is negative. Covid 19 testing is negative. Influenza screen was negative. Ultrasound of the abdomen showed thickening of the gallbladder wall with pericholecystic fluid and positive sonographic Aguilar's sign that suggest possibly acute cholecystitis. HIDA scan was recommended. The common bile duct was nondilated. Large was filled within the gallbladder wall. Renal ultrasound was not done. CAT scan of the abdomen and pelvis that was done at the time of admission showed lobulated the right kidney, no obstruction, no evidence of any hydronephrosis. Lung bases were essentially clear. The blood culture is positive for now with gram- negative bacillus. The patient was given a dose of IV Rocephin in the emergency and overnight I give the patient IV cefepime 2 g every 12 hours. She is on IV fluid cytology 100 mL an hour's and she is on no pressors. IV fluids will be kept on to 50 mL accordingly. On 01/24/2022, I'm seeing the patient for a follow-up. Noted the patient had a gram-negative sepsis and the patient turnout to have E. coli in her urine and in her blood. She remains on IV antibiotics and currently she is on IV Rocephin 2 g every 24 hours. At the same time, it was noted the gallbladder may be another source of infection. I had a lengthy discussion with the surgeon and we decided to proceed with a laparoscopic cholecystectomy. The patient underwent the surgery this morning without any complications. She was extubated in the operating room and currently she is on oxygen at 2 L nasal cannula. She is hemodynamically stable. She was requiring low-dose norepinephrine and she is at a dose of 0.02 mcg/kg/m. She is also on IV fluids with normal saline at the rate of 50 mL an hour. The white cell count is down to 13.9 with a hemoglobin of 11.3 and the sodium is at 141 with a BUN of 14 and a creatinine of 1.1. She has essentially recovered from her acute kidney injury. LFTs were elevated related to her underlying cholecystitis. Nevertheless, as mentioned earlier, the culprit source of sepsis was the urinary tract. In 2021, the patient is recovering from her acute laparoscopic cholecystectomy that was done for underlying cholelithiasis. Nevertheless, the patient was also septic with E. coli UTI and the patient is adequately treated and resuscitated. The patient remains on IV Rocephin. The white cell count is down to 12.3. She is hemodynamically stable and she is on no pressors at this point in time. Noted the patient also is known to have a lot of stenosis and bicuspid aortic valve. The white cell count is down to 12.3. Hemoglobin is 11.9. The serum bicarbs at 17 with a BUN of 10 and a creatinine of 0.9. The pro-calcitonin level was as high as 9.1 she is otherwise, comfortable. She is on 2 L of oxygen by nasal cannula and a pulse ox is around 99%. Surgical one- sided dry clean and intact. No other significant events overnight. No fever. No pressors. Reevaluated today on 01/26/22, patient remains in the ICU, but she is doing extremely well. Patient is relatively asymptomatic. She is now on room air, blood pressure is stable, she remains on antibiotics as per infectious disease on the case, patient is alert oriented 3, does not seem to be in any distress. CBC is relatively normal electrolytes are basically normal, renal profile is normal however her liver profile seems to be a bit abnormal. Patient is status post cholecystectomy. Today I plan to transfer the patient out of the ICU to a regular medical floor. Reevaluated today on 01/27/22, patient remains in the ICU, doing well, she is an overflow. Remains on antibiotics. Labs today are unremarkable except for steadily rising liver enzymes. This is to be addressed by surgery and by the admitting physician on the case. Considering the rise in her alkaline phosphat ase, I am a bit concerned about the possibility of obstructive picture. However her bilirubin remains normal Reevaluated today on 01/28/22, patient is doing well, asymptomatic, I will clear the patient to be discharged home today. All labs from today are basically unremarkable including CBC and basic metabolic profile liver enzymes are improving. Objective - Vital Signs Vital signs: Vital Signs Temp 98 F 01/28/22 08:00 Pulse 105 H 01/28/22 08:00 Resp 18 01/28/22 08:00 BP 90/65 01/28/22 08:00 Pulse Ox 98 01/28/22 08:00 FiO2 100 01/23/22 11:42 Intake & Output 01/27/22 01/28/22 01/28/22 18:59 06:59 18:59 Output Total 350 0 Balance -350 0 Weight 72.9 kg Output: Urine 350 0 Other: Voiding Method Indwelling Catheter Toilet Toilet # Voids 1 2 # Bowel Movements 1 1 - Exam Physical Exam: Revealed a 26-year-old female in no distress Head: Atraumatic, normocephalic HEENT:: [No neck masses.] [No thyromegaly.] [No JVD.] Chest: [Clear throughout, no crackles, no rhonchi, no wheezes.] Cardiac Exam: [Normal S1 and S2, no S3 gallop, 2/6 systolic murmur thought the precordium Abdomen: [Soft, nontender, no megaly, no rebound, no guarding, normal bowel sounds.] Extremities: [No clubbing, no edema, no cyanosis.] Neurological Exam: [No focal neurologic deficit.] Alert and oriented 3 Psychiatric: Normal mood affect and normal status examination. Skin: No rashes. Musculoskeletal: No deformities and no limitation in range of motion - Labs CBC & Chem 7: 01/28/22 05:38 01/28/22 05:38 Labs: Abnormal Lab Results - Last 24 Hours (Table) 01/28/22 01/28/22 Range/Units 05:38 05:38 RBC 3.48 L (3.80-5.40) m/uL Hgb 11.2 L (11.4-16.0) gm/dL Hct 33.5 L (34.0-46.0) % Delta Bilirubin 0.5 H (0.0-0.2) mg/dL AST 115 H (14-36) U/L ALT 130 H (4-34) U/L Alkaline Phosphatase 317 H (38-126) U/L Total Protein 5.5 L (6.3-8.2) g/dL Albumin 3.0 L (3.5-5.0) g/dL Microbiology - Last 24 Hours (Table) 01/27/22 06:40 Blood Culture - Preliminary Blood No Growth after 24 hours Assessment and Plan Assessment: Impression: Acute E. coli sepsis secondary to E. coli urinary tract infection Acute lactic acidosis, resolved Acute cholecystitis requiring cholecystectomy Acute pulmonary edema in the setting of fluid overload and suspect severe bicuspid aortic valve and aortic valve stenosis, may need eventually SREEKANTH, and will need cardiac evaluation. Patient had good LV function based on the echocardiogram but she does have significant aortic valve disease. Acute hypoxic respiratory failure secondary to pulmonary edema, most likely related to underlying valvular heart disease. History of Ingram syndrome History of autism History of right nephrectomy Chronic iron deficiency anemia Benign essential hypertension Elevated liver enzymes, to be addressed by admitting physician and surgery on the case Recommendation: Cleared for discharge if cleared by other consultants Will follow as needed Antibiotics as per ID on the case Time with Patient: Less than 30
[2022-01-28] MEDS ORDERED: cefTRIAXone 1,000 MG VIAL (IM USE) IM STA (13:01)
--- NOTE | 2022-01-28 14:19 | PN ---
PROGRESS NOTE SUBJECTIVE: Misty is a 26-year-old lady who is admitted to hospital with E. coli septicemia and went into congestive heart failure secondary to fluid overload. An echocardiogram revealed [id number] aortic stenosis. The patient has known bicuspid aortic valve with aortic stenosis that is being followed in the outpatient setup. She is feeling better now and denies any chest pain or difficulty in breathing. Her subsequent blood cultures were negative. PHYSICAL EXAMINATION: GENERAL: Comfortable at rest. VITAL SIGNS: Stable. CHEST: Reveals good air entry bilaterally. HEART: Reveals first and second heart sounds and a grade 4/6 ejection systolic murmur. ABDOMEN: Soft. EXTREMITIES: Did not reveal any edema. Peripheral pulses are felt. LABS: Show a hemoglobin of 11.2, platelet count of 306, potassium is 4.1, creatinine is 0.89. ASSESSMENT: 1. [id number]-[id number] aortic stenosis. 2. Pulmonary edema secondary to fluid overload. 3. E. colic septicemia. PLAN: The patient is stable clinically, will be discharged home from cardiac standpoint and arrange follow up with us in the office in 3 weeks' time. MMLYNL / INDUN: [id number] /
[2022-01-28 16:00] VITALS: BP 111/70
[2022-01-28] MEDS ORDERED: CIPROFLOXACIN HCL 500 MG TAB PO SCH (21:00)
--- NOTE | 2022-01-28 21:31 | P.DS ---
Providers Date of admission: 01/22/22 18:51 Attending physician: Hellen Hutchinson MD Consults: 01/23/22 02:46 Consult Physician Urgent Consulting Provider: Yuliana Nam Consult Reason/Comments: ICU Do you want consulting provider notified?: Already Contacted 01/23/22 09:20 Consult Physician Stat Consulting Provider: Adrian Hendrickson Consult Reason/Comments: Acute Cholecystitis Do you want consulting provider notified?: Yes Consult Physician Stat Consulting Provider: Oscar Raymundo Consult Reason/Comments: Positive blood cultures Do you want consulting provider notified?: Yes 01/26/22 12:05 Consult Physician Routine Consulting Provider: Arpit Carter Consult Reason/Comments: Aortic Stenosis Do you want consulting provider notified?: Yes Primary care physician: Bianca Lindsay Hospital Course: Diagnoses: right side Acute pyelonephritis secondary to E. 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 Her PCP is Dr. Lindsay and her mom is her guardian as per patient Patient presents because of cough and right flank pain. Patient found to have sepsis with right pyelonephritis and septic shock requiring pressors for short time and IV fluids as well as acute cholecystitis. Patient was admitted to the ICU and she was monitored closely several consultants saw the patient including pulmonary/critical care team, surgery team, infectious disease team. And medical accounting clerk in regard to her aortic stenosis. Patient was treated empirically with broad-spectrum antibiotics and blood culture came back positive for E. coli as well as urine culture positive for E. coli, responsive to ceftriaxone which is started for the patient, patient improved significantly and her vitals back to normal, no need for pressors, she became afebrile and she is back to her normal status. She underwent laparoscopic cholecystectomy on 01/24 and tolerated the procedure well On the day of discharge she is fully awake and oriented, tolerating diet well, minimal expected pain at the surgical site, no diarrhea, no chest pain or dyspnea, no other urinary or neurological complaints. Patient feels she can be discharged home today. Patient was cleared for discharge by all consultants including surgery, ID team, pulmonary team as well as medical accounting clerk. Condition discharge on 12 days of Cipro per ID team. I discussed the case with PCP Dr. Lindsay who were going to follow-up with the patient with recommendation to monitor LFTs and referral to cardiology for aortic stenosis, Problems and management plan were discussed with the patient and he verbalized understanding and acceptance Patient was found stable and can be discharged home in guarded prognosis however he needs follow-up as an outpatient. Patient was instructed to follow up with PCP Dr. Lindsay within one week and patient agrees with the appointments made for her on 02/02 Patient was instructed to follow up with Dr. Hendrickson in one week, Dr. Carter medical accounting clerk within 1 weeks I called him on and off that her with all above current recommendation and problems and management plan and she verbalized understanding and acceptance I called the pharmacy and confirmed Cipro prescription has received the pharmacy ready for pickup by patient/family Physical exam Gen: patient is a AAOx3, no distress CVS: S1-S2, RRR, no murmur Lungs: B/L CTA, no wheezing -Abdomen: soft, no distention, no tenderness, positive bowel sounds. Surgical wounds are closed and healed Extremity: no leg edema or induration Time spent more than 35 minutes Patient Condition at Discharge: Stable Plan - Discharge Summary Discharge Rx Participant: Yes New Discharge Prescriptions: New Acetaminophen Tab [Tylenol Tab] 650 mg PO Q4H PRN #30 tablet PRN Reason: Pain Famotidine [Pepcid] 20 mg PO DAILY 10 Days #10 tablet Ciprofloxacin HCl [Cipro] 500 mg PO BID 12 Days #24 tab Continue Sertraline HCl [Zoloft] 50 mg PO HS Oxybutynin Chloride [Ditropan XL] 5 mg PO DAILY Lisdexamfetamine Dimesylate [Vyvanse] 70 mg PO DAILY Ferrous Sulfate [Iron (65 MG Elemental)] 325 mg PO DAILY Oxybutynin Xl [Ditropan XL] 10 mg PO HS calcitrioL [Calcitriol] 0.25 mcg PO Q14D Melatonin [Melatonin ER] 10 mg PO HS Cholecalciferol [Vitamin D3 (125 Mcg = 5000 Iu)] 125 mcg PO DAILY Discontinued Enalapril Maleate [Vasotec] 5 mg PO Q48H cloNIDine HCL [Catapres] 0.1 mg PO HS Discharge Medication List Ferrous Sulfate [Iron (65 MG Elemental)] 325 mg PO DAILY 11/01/14 [History] Lisdexamfetamine Dimesylate [Vyvanse] 70 mg PO DAILY 11/01/14 [History] Oxybutynin Chloride [Ditropan XL] 5 mg PO DAILY 11/01/14 [History] Sertraline HCl [Zoloft] 50 mg PO HS 11/01/14 [History] Cholecalciferol [Vitamin D3 (125 Mcg = 5000 Iu)] 125 mcg PO DAILY 01/22/22 [History] Melatonin [Melatonin ER] 10 mg PO HS 01/22/22 [History] Oxybutynin Xl [Ditropan XL] 10 mg PO HS 01/22/22 [History] calcitrioL [Calcitriol] 0.25 mcg PO Q14D 01/22/22 [History] Acetaminophen Tab [Tylenol Tab] 650 mg PO Q4H PRN #30 tablet 01/28/22 [Rx] Ciprofloxacin HCl [Cipro] 500 mg PO BID 12 Days #24 tab 01/28/22 [Rx] Famotidine [Pepcid] 20 mg PO DAILY 10 Days #10 tablet 01/28/22 [Rx] Follow up Appointment(s)/Referral(s): Adrian Hendrickson MD [Medical Doctor] - 1 Week Bianca Lindsay MD [Primary Care Provider] - 02/02/22 1:00 pm (check your liver tests with your doctor) Arpit Carter MD [STAFF PHYSICIAN] - 3 Weeks Activity/Diet/Wound Care/Special Instructions: Repeat LFTs in 1 week (follow-up with her primary care Dr. Lindsay) No lifting over 10 pounds You may shower. No soaking or tub baths for 2 weeks Very light activity until you are reevaluated at your follow up appointment with your surgeon Resume previous diet Activity is restricted until you see your doctor Discharge Disposition: HOME SELF-CARE
[2022-01-29] MEDS ORDERED: cefTRIAXone 1,000 MG VIAL (IM USE) IM SCH (09:00)
--- NOTE | 2022-02-04 18:18 | P.PN ---
Subjective Progress Note Date: 01/28/22 Principal diagnosis: E. coli pyelonephritis and bacteremia Patient is a 26-year-old female with a past medical history significant for Ingram's syndrome presenting to the ER for evaluation of right flank pain patient has been diagnosed with right-sided polynephritis and subsequently did have E. coli bacteremia, the patient is status post laparoscopic-assisted cholecystectomy completed on 01/24/2022. On today's evaluation that is 01/28/2022, the patient denies any fever or any chills , the patient is breathing comfortably on room air, the patient denies any chest pain or shortness of breath occasional cough. The patient denies nausea no vomiting and no abdominal pain or any diarrhea is feeling better wants to go home Objective - Vital Signs Vital signs: Vital Signs Temp 98 F 01/28/22 08:00 Pulse 105 H 01/28/22 08:00 Resp 18 01/28/22 08:00 BP 90/65 01/28/22 08:00 Pulse Ox 98 01/28/22 08:00 FiO2 100 01/23/22 11:42 Intake & Output 01/27/22 01/28/22 01/28/22 18:59 06:59 18:59 Output Total 350 0 Balance -350 0 Weight 72.9 kg Output: Urine 350 0 Other: Voiding Method Indwelling Catheter Toilet Toilet # Voids 1 2 # Bowel Movements 1 1 - Exam GENERAL DESCRIPTION: A middle-age female lying in bed in no distress RESPIRATORY SYSTEM: Unlabored breathing , decreased breath sounds at bases HEART: S1 S2 regular rate and rhythm , ABDOMEN: Soft , no tenderness EXTREMITIES: No edema feet - Labs CBC & Chem 7: 01/28/22 05:38 01/28/22 05:38 Labs: Abnormal Lab Results - Last 24 Hours (Table) 01/28/22 01/28/22 Range/Units 05:38 05:38 RBC 3.48 L (3.80-5.40) m/uL Hgb 11.2 L (11.4-16.0) gm/dL Hct 33.5 L (34.0-46.0) % Delta Bilirubin 0.5 H (0.0-0.2) mg/dL AST 115 H (14-36) U/L ALT 130 H (4-34) U/L Alkaline Phosphatase 317 H (38-126) U/L Total Protein 5.5 L (6.3-8.2) g/dL Albumin 3.0 L (3.5-5.0) g/dL Microbiology - Last 24 Hours (Table) 01/27/22 06:40 Blood Culture - Preliminary Blood No Growth after 24 hours Assessment and Plan (1) Pyelonephritis Status: Acute Code(s): N12 - TUBULO-INTERSTITIAL NEPHRITIS, NOT SPCF ACUTE OR CHRONIC SNOMED Code(s): 58502382 Plan: 1patient present to hospital with sepsis/septic shock in this patient who did have a fever tachycardia elevated white count hypotension source likely right- sided pyelonephritis with secondary bacteremia likely from enteric gram-negative pathogen. Patient blood and urine has been finalized with an E. coli which is a sensitive pathogen 2patient with a penicillin allergy that would limit the number of antibiotics safe to use. 3patient has shown clinical improvement and Rocephin will finish therapy with oral Cipro 10 days and a close outpatient follow-up discussed with the admitting team working on discharge Time with Patient: Less than 30
== END 2022-01-28 15:40 | disposition home or self-care (01) | DRG 853 ==
LOC: EC 16:36 → 4SSUR 18:51 → 2SICU 01-23 02:45
PROVIDERS: ADMIT Internal Medicine; ATTEND Internal Medicine
PROC: 5A09357 Assistance with Respiratory Ventilation, Less than 24 Consecutive Hours, Continuous Positive Airway Pressure (ICD-10-PCS; 2022-01-23)
PROC: 4A133J1 Monitoring of Arterial Pulse, Peripheral, Percutaneous Approach (ICD-10-PCS; 2022-01-24)
PROC: 03HY32Z Insertion of Monitoring Device into Upper Artery, Percutaneous Approach (ICD-10-PCS; 2022-01-24)
PROC: 4A133B1 Monitoring of Arterial Pressure, Peripheral, Percutaneous Approach (ICD-10-PCS; 2022-01-24)
PROC: 3E033XZ Introduction of Vasopressor into Peripheral Vein, Percutaneous Approach (ICD-10-PCS; 2022-01-24)
PROC: 0FT44ZZ Resection of Gallbladder, Percutaneous Endoscopic Approach (ICD-10-PCS; principal; 2022-01-24 08:00)
DX: A41.51 Sepsis due to Escherichia coli [E. coli] (principal); I50.31 Acute diastolic (congestive) heart failure; J96.01 Acute respiratory failure with hypoxia; R65.21 Severe sepsis with septic shock; E87.21 Acute metabolic acidosis; F84.0 Autistic disorder; K80.00 Calculus of gallbladder with acute cholecystitis without obstruction; N10 Acute pyelonephritis; N17.9 Acute kidney failure, unspecified; Q23.1 Congenital insufficiency of aortic valve; Z68.42 Body mass index [BMI] 45.0-49.9, adult; D50.9 Iron deficiency anemia, unspecified; E66.01 Morbid (severe) obesity due to excess calories; E86.0 Dehydration; F32.A Depression, unspecified; I11.0 Hypertensive heart disease with heart failure; R74.01 Elevation of levels of liver transaminase levels; K82.8 Other specified diseases of gallbladder; Q96.9 Turner's syndrome, unspecified; Z20.822 Contact with and (suspected) exposure to COVID-19; Z90.5 Acquired absence of kidney; Z28.21 Immunization not carried out because of patient refusal; Z88.0 Allergy status to penicillin; Z71.3 Dietary counseling and surveillance; Z79.899 Other long term (current) drug therapy
CPT/HCPCS: 36415; 71045; 71046; 74176; 76700; 80048; 80053; 80076; 81001; 81025; 83605; 83735; 84145; 85025; 87040; 87077; 87086; 87186; 87502; 87635; 88304; 93306; 94660; 94760; 96361; 96365; 99285

== ENCOUNTER → 2022-03-25 | Outpatient (CLI) | payer OTHER ==
--- NOTE | 2022-03-25 14:07 | XR ---
EXAMINATION TYPE: XR knee complete RT DATE OF EXAM: 03/25/2022 1:06 PM INDICATION: Patient age:Female; 26 years old; Reason for study: [id number] RT KNEE PAIN; [facility]. COMPARISON: None. TECHNIQUE: The Right knee(s) was examined in 3 projections. Frontal, lateral and oblique. FINDINGS: No evidence of any acute osseous pathology, joint space narrowing, or joint effusion. Mil d soft tissue swelling of the anterior knee. IMPRESSION: 1. No acute osseous pathology. 2. Mild soft tissue swelling of the anterior knee.
== END | disposition home or self-care (01) ==
LOC: RADXRYALE 12:51
PROVIDERS: ATTEND Internal Medicine
DX: M25.561 Pain in right knee (principal); M79.89 Other specified soft tissue disorders

== ENCOUNTER 2023-04-25 05:59 | Emergency (ER) | payer OTHER ==
--- NOTE | 2023-04-25 06:29 | ED ---
ENT HPI - General Chief complaint: ENT Stated complaint: earache Time Seen by Provider: 04/25/23 06:01 Source: patient, EMS, RN notes reviewed Mode of arrival: EMS Limitations: no limitations - History of Present Illness Initial comments: 27-year-old female presents emergency department via EMS with chief complaint of right ear pain, cough and congestion. Symptoms started last days. Pain worsened over night of her right ear she states she cannot hear out of it denies abdominal complaints denies chest pain or current shortness of breath. Patient denies any drainage from the right ear. She states the pain extends down to her face. - Related Data Home Medications Medication Instructions Recorded Confirmed Ferrous Sulfate [Iron (65 MG 325 mg PO DAILY 11/01/14 01/22/22 Elemental)] Lisdexamfetamine Dimesylate 70 mg PO DAILY 11/01/14 01/22/22 [Vyvanse] Sertraline HCl [Zoloft] 50 mg PO HS 11/01/14 01/22/22 oxyBUTYnin chloride [Ditropan XL] 5 mg PO DAILY 11/01/14 01/22/22 Cholecalciferol [Vitamin D3 (125 125 mcg PO DAILY 01/22/22 01/22/22 Mcg = 5000 Iu)] Melatonin [Melatonin ER] 10 mg PO HS 01/22/22 01/22/22 Oxybutynin Xl [Ditropan XL] 10 mg PO HS 01/22/22 01/22/22 calcitrioL 0.25 mcg PO Q14D 01/22/22 01/22/22 Previous Rx's Medication Instructions Recorded Acetaminophen Tab [Tylenol Tab] 650 mg PO Q4H PRN #30 tablet 01/28/22 Ciprofloxacin HCl [Cipro] 500 mg PO BID 12 Days #24 tab 01/28/22 Famotidine [Pepcid] 20 mg PO DAILY 10 Days #10 tablet 01/28/22 Allergies Allergy/AdvReac Type Severity Reaction Status Date / Time Penicillins Allergy Swelling Verified 01/22/22 19:02 Review of Systems ROS Statement: Those systems with pertinent positive or pertinent negative responses have been documented in the HPI. ROS Other: All systems not noted in ROS Statement are negative. Past Medical History 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, Autism History of Any Multi-Drug Resistant Organisms: None Reported Additional Past Surgical History / Comment(s): Right nephrectomy Past Anesthesia/Blood Transfusion Reactions: No Reported Reaction Past Psychological History: Depression Smoking Status: Never smoker Past Alcohol Use History: None Reported Past Drug Use History: None Reported General Exam Limitations: no limitations General appearance: alert, in no apparent distress Head exam: Present: atraumatic, normocephalic, normal inspection Eye exam: Present: normal appearance, PERRL, EOMI. Absent: scleral icterus, conjunctival injection, periorbital swelling ENT exam: Present: normal oropharynx, mucous membranes moist, TM's normal bilaterally. Absent: normal exam, normal external ear exam (Cerumen impaction right) Neck exam: Present: normal inspection, full ROM. Absent: tenderness, meningismus, lymphadenopathy Respiratory exam: Present: normal lung sounds bilaterally. Absent: respiratory distress, wheezes, rales, rhonchi, stridor Cardiovascular Exam: Present: regular rate, normal rhythm, normal heart sounds. Absent: systolic murmur, diastolic murmur, rubs, gallop, clicks Neurological exam: Present: alert Course Vital Signs 04/25/23 04/25/23 04/25/23 06:00 06:51 07:30 Temperature 99.5 F 98.5 F Pulse Rate 104 H 87 85 Respiratory 20 16 16 Rate Blood Pressure 121/86 96/56 87/58 O2 Sat by Pulse 96 97 98 Oximetry Procedures - Ear Wax Removal Right Ear Cerumenolytic Used: Cerumenex Ear Canal Irrigated by: RN, other (ISMAEL) Ear Canal Irrigated With: warm saline with H2O2 using syringe/angiocath Results: Re-examined: some cerumen remains TM Visible: TM(s) intact, normal appearance Ear Canal: atraumatic Patient Tolerated Procedure: well Complications: no problems Medical Decision Making - Medical Decision Making Was pt. sent in by a medical professional or institution (, PA, SAUSAGE WRAPPER, urgent care, hospital, or halfway...) When possible be specific @ -No Did you speak to anyone other than the patient for history (EMS, parent, family, police, friend...)? What history was obtained from this source @ -No Did you review nursing and triage notes (agree or disagree)? Why? @ -I reviewed and agree with nursing and triage notes Were old charts reviewed (outside hosp., previous admission, EMS record, old EKG, old radiological studies, urgent care reports/EKG's, halfway records)? Report findings @ -No old charts were reviewed Differential Diagnosis (chest pain, altered mental status, abdominal pain women, abdominal pain men, vaginal bleeding, weakness, fever, dyspnea, syncope, headache, dizziness, GI bleed, back pain, seizure, CVA, palpatations, mental health, musculoskeletal)? @ -COVID 19, RSV, influenza, pneumonia, acute bronchitis, URI, this list is not all inclusive EKG interpreted by me (3pts min.). @ -None X-rays interpreted by me (1pt min.). @ -None done CT interpreted by me (1pt min.). @ -None done U/S interpreted by me (1pt. min.). @ -None done What testing was considered but not performed or refused? (CT, X-rays, U/S, labs )? Why? @ -None What meds were considered but not given or refused? Why? @ -None Did you discuss the management of the patient with other professionals (professionals i.e. , PA, SAUSAGE WRAPPER, lab, RT, psych nurse, director of social work, learning solutions specialist, teacher, quarantine officer, manager rn case)? Give summary @ -No Was smoking cessation discussed for >3mins.? @ -No Was critical care preformed (if so, how long)? @ -No Were there social determinants of health that impacted care today? How? (Homelessness, low income, unemployed, alcoholism, drug addiction, transportation, low edu. Level, literacy, decrease access to med. care, [facility], rehab)? @ -No Was there de-escalation of care discussed even if they declined (Discuss DNR or withdrawal of care, Hospice)? DNR status @ -No What co-morbidities impacted this encounter? (DM, HTN, Smoking, COPD, CAD, Cancer, CVA, ARF, Chemo, Hep., AIDS, mental health diagnosis, sleep apnea, morbid obesity)? @ -None Was patient admitted / discharged? Hospital course, mention meds given and route, prescriptions, significant lab abnormalities, going to OR and other pertinent info. @ -Discharged patient is COVID-19 positive, did have cerumen impaction which was irrigated. Patient states she is asymptomatic. Blood pressure 93/67 which she states is her baseline. Patient discharged in stable condition return pressure discussed. Undiagnosed new problem with uncertain prognosis? @ -No Drug Therapy requiring intensive monitoring for toxicity (Heparin, Nitro, Insulin, Cardizem)? @ -No Were any procedures done? @ -No Diagnosis/symptom? @ -COVID-19, cerumen impaction Acute, or Chronic, or Acute on Chronic? @ -Acute Uncomplicated (without systemic symptoms) or Complicated (systemic symptoms)? @ -Uncomplicated Side effects of treatment? @ -No Exacerbation, Progression, or Severe Exacerbation? @ -No Poses a threat to life or bodily function? How? (Chest pain, [place], [place], pneumonia, PE, COPD, DKA, ARF, appy, cholecystitis, CVA, Diverticulitis, Homicidal, Suicidal, threat to staff... and all critical care pts) @ -No - Lab Data Lab Results 04/25/23 Range/Units 06:15 Influenza Type A (PCR) Not Detected (Not Detectd) Influenza Type B (PCR) Not Detected (Not Detectd) RSV (PCR) Not Detected (Not Detectd) SARS-CoV-2 (PCR) Detected A (Not Detectd) Disposition Clinical Impression: COVID-19, Cerumen impaction Disposition: HOME SELF-CARE Condition: Stable Instructions (If sedation given, give patient instructions): COVID-19 (Coronavirus Disease 2019) (ED) Additional Instructions: Please return to the Emergency Department if symptoms worsen or any other concerns. Is patient prescribed a controlled substance at d/c from ED?: No Referrals: Bianca Lindsay MD [Primary Care Provider] - 1-2 days Time of Disposition: 07:33
[2023-04-25] MEDS: CARBAMIDE PEROXIDE 6.5% DROPS 15 ML BTL RIGHT EAR STA (06:31)
[2023-04-25 07:08] VITALS: RESP 16
[2023-04-25 07:38] VITALS: BP 93/68; PULSE 85; TEMP 98.5
== END 2023-04-25 08:46 | disposition home or self-care (01) ==
LOC: EC 05:59
DX: U07.1 COVID-19 (principal); H61.21 Impacted cerumen, right ear; F32.A Depression, unspecified; Z79.899 Other long term (current) drug therapy; Z88.0 Allergy status to penicillin
CPT/HCPCS: 69210; 87636; 99283

== ENCOUNTER 2023-06-03 10:07 | Emergency (ER) | payer OTHER ==
[2023-06-03] MEDS: MAG HYDROX/AL HYDROX/SIMETH 30 ML, HYOSCYAMINE ELIXIR 10 ML, LIDOCAINE VISCOUS 2% 10 ML PO STA (10:32)
[2023-06-03] MEDS: KETOROLAC 15 MG/ML 1 ML VIAL IVP STA (10:35)
[2023-06-03] MEDS: SODIUM CHLORIDE 0.9% 500 ML 500 ML IV STA (10:35)
[2023-06-03 10:43] LABS: Basophils % (A) 0 %; Eosinophils # (A) 0.4 k/uL (0-0.7); Eosinophils % (A) 7 %; HGB 13.3 gm/dL (11.4-16.0); Lymphocytes # (A) 1.4 k/uL (1.0-4.8); Lymphocytes % (A) 21 %; MCH 30.5 pg (25.0-35.0); MCHC 32.4 g/dL (31.0-37.0); MCV 94.2 fL (80.0-100.0); Mean Platelet Volume 8.8; Monocytes # (A) 0.4 k/uL (0-1.0); Monocytes % (A) 6 %; Neutrophils # (A) 4.4 k/uL (1.3-7.7); Neutrophils % (A) 65 %; Platelet Count 264 k/uL (150-450); RBC 4.35 m/uL (3.80-5.40); RDW 13.1 % (11.5-15.5); WBC 6.8 k/uL (3.8-10.6)
--- NOTE | 2023-06-03 10:46 | ED ---
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 Seems to be musculoskeletal in nature as the patient states it is worse with movements as well as with palpation over the left side of her chest. She did see her car tracer yesterday who ordered outpatient test for her. Presents for continued symptoms. Has been dealing with upper respiratory infection over that period of time as well. No shortness of breath. No lower extremity swelling. She denies any abdominal pain, nausea, vomiting, diaphoresis. No other acute complaints at this time. Presents for further evaluation. - Related Data Home Medications Medication Instructions Recorded Confirmed Ferrous Sulfate [Iron (65 MG 325 mg PO DAILY 11/01/14 06/03/23 Elemental)] Sertraline HCl [Zoloft] 50 mg PO HS 11/01/14 06/03/23 oxyBUTYnin chloride [Ditropan XL] 5 mg PO DAILY 11/01/14 06/03/23 Cholecalciferol [Vitamin D3 (125 125 mcg PO DAILY 01/22/22 06/03/23 Mcg = 5000 Iu)] Melatonin [Melatonin ER] 10 mg PO HS 01/22/22 06/03/23 Oxybutynin Xl [Ditropan XL] 10 mg PO HS 01/22/22 06/03/23 cloNIDine HCL [Catapres] 0.1 mg PO HS 06/03/23 06/03/23 Allergies Allergy/AdvReac Type Severity Reaction Status Date / Time Penicillins Allergy Swelling Verified 06/03/23 12:16 sulfamethoxazole Allergy Rash/Hives Verified 06/03/23 12:16 [From Bactrim] trimethoprim [From Bactrim] Allergy Rash/Hives Verified 06/03/23 12:16 Review of Systems ROS Statement: Those systems with pertinent positive or pertinent negative responses have been documented in the HPI. Review of Systems: CONST: Denies fever EYES: Denies blurry vision ENT: Denies nasal congestion C/V: Endorses chest pain RESP: Denies shortness of breath GI: Denies abdominal pain : Denies dysuria SKIN: Denies rash. MSK: Denies joint pain. NEURO: Denies headache ROS Other: All systems not noted in ROS Statement are negative. Past Medical History Past Medical History: CVA/TIA 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, Autism History of Any Multi-Drug Resistant Organisms: None Reported Additional Past Surgical History / Comment(s): Right nephrectomy Past Anesthesia/Blood Transfusion Reactions: No Reported Reaction Past Psychological History: Depression Smoking Status: Never smoker Past Alcohol Use History: None Reported Past Drug Use History: None Reported General Exam - General Exam Comments Initial Comments: General: Appears in no acute distress. HEAD: Normal with no signs of head trauma. EYES: PERRLA, EOMI, conjunctiva normal, no discharge. ENT: Hearing grossly intact, normal oropharynx. RESPIRATORY: Clear breath sounds bilaterally. No wheezes, rales, or rhonchi. C/V: Regular rate and rhythm. S1 and S2 auscultated, no edema, peripheral pulses 2+ and intact throughout. Patient does have reproducible chest wall pain on palpation. Substernal and slightly on the left. No obvious rib cage deformity. ABD: Abd is soft, nontender, nondistended EXT: Normal range of motion, no obvious deformity SKIN: No rashes or lesions observed on exposed skin. NEURO: Alert and oriented x 4. Limitations: no limitations Course Vital Signs 06/03/23 06/03/23 06/03/23 10:12 11:35 13:02 Temperature 97.8 F Pulse Rate 92 104 H 97 Respiratory 22 18 18 Rate Blood Pressure 108/79 95/68 111/74 O2 Sat by Pulse 94 L 97 98 Oximetry Medical Decision Making - Medical Decision Making Was pt. sent in by a medical professional or institution (, PA, SENIOR GAME DESIGNER, urgent care, hospital, or long term...) When possible be specific @ -No Did you speak to anyone other than the patient for history (EMS, parent, family, police, friend...)? What history was obtained from this source @ -No Did you review nursing and triage notes (agree or disagree)? Why? @ -I reviewed and agree with nursing and triage notes Were old charts reviewed (outside hosp., previous admission, EMS record, old EKG, old radiological studies, urgent care reports/EKG's, long term records)? Report findings @ -No old charts were reviewed Differential Diagnosis (chest pain, altered mental status, abdominal pain women, abdominal pain men, vaginal bleeding, weakness, fever, dyspnea, syncope, headache, dizziness, GI bleed, back pain, seizure, CVA, palpatations, mental health, musculoskeletal)? @ -ACS, muscle strain, URI, chest wall pain, this list is not all inclusive. EKG interpreted by me (3pts min.). @ -As above X-rays interpreted by me (1pt min.). @ -Chest x-ray reveals no obvious acute cardiopulmonary process. Patient does have soft tissue prominence of the trachea near her thyroid. Patient states that this is chronic for her and she is getting outpatient workup. CT interpreted by me (1pt min.). @ -None done U/S interpreted by me (1pt. min.). @ -None done What testing was considered but not performed or refused? (CT, X-rays, U/S, labs)? Why? @ -None What meds were considered but not given or refused? Why? @ -None Did you discuss the management of the patient with other professionals (professionals i.e. , PA, SENIOR GAME DESIGNER, lab, RT, psych nurse, group social worker, ob gyn, teacher, consumer safety officer, medical case worker)? Give summary @ -No Was smoking cessation discussed for >3mins.? @ -No Was critical care preformed (if so, how long)? @ -No Were there social determinants of health that impacted care today? How? (Homel essness, low income, unemployed, alcoholism, drug addiction, transportation, low edu. Level, literacy, decrease access to med. care, [facility]cc, rehab)? @ -No Was there de-escalation of care discussed even if they declined (Discuss DNR or withdrawal of care, Hospice)? DNR status @ -No What co-morbidities impacted this encounter? (DM, HTN, Smoking, COPD, CAD, Cancer, CVA, ARF, Chemo, Hep., AIDS, mental health diagnosis, sleep apnea, morbid obesity)? @ -Ingram syndrome with leaky heart valve Was patient admitted / discharged? Hospital course, mention meds given and route, prescriptions, significant lab abnormalities, going to OR and other pertinent info. @ -Based on the patient's presentation and physical exam, presents with chest wall pain. We will obtain cardiac workup. Pain has been present over a day. Patient was in agreement this plan. She will be given IV Toradol as well as a GI cocktail at this time. Vital signs are within acceptable limits. EKG shows no signs of acute ischemia.Chest x-ray shows no obvious acute cardiopulmonary process. What appears to be some swelling near the trachea which seems to be chronic as the patient is aware of it. States it is related to her thyroid. Patient's laboratory studies are remarkable for undetectable troponin, and otherwise unremarkable labs. On reevaluation, patient's symptoms have resolved following Toradol and GI cocktail. I discussed her workup. We agreed to obtain a second 3-hour troponin. She was in agreement this plan. Second troponin remained undetectable. She will be discharged home at this time. Patient was in agreement this plan. Heart score is low at this time. Instructions to follow- up with her car tracer on an outpatient basis, who she saw yesterday with the identical complaints. I instructed the patient to follow up with their PCP in the next 1-3 days. I explained that the patient should return to the emergency department if they experience any worsening symptoms. Strict return precautions were discussed with the patient. The patient expressed understanding of these instructions. I answe red all questions that the patient had. The patient was discharged home in [good] condition with their prescriptions and follow up information. Undiagnosed new problem with uncertain prognosis? @ -No Drug Therapy requiring intensive monitoring for toxicity (Heparin, Nitro, Insulin, Cardizem)? @ -No Were any procedures done? @ -No Diagnosis/symptom? @ -Chest wall pain Acute, or Chronic, or Acute on Chronic? @ -Acute Uncomplicated (without systemic symptoms) or Complicated (systemic symptoms)? @ -Uncomplicated Side effects of treatment? @ -None Exacerbation, Progression, or Severe Exacerbation] @ -No Poses a threat to life or bodily function? @ -Unlikely - Lab Data Result diagrams: 06/03/23 10:35 06/03/23 10:35 Lab Results 06/03/23 06/03/23 06/03/23 Range/Units 10:35 10:35 10:35 WBC 6.8 (3.8-10.6) k/uL RBC 4.35 (3.80-5.40) m/uL Hgb 13.3 (11.4-16.0) gm/dL Hct 41.0 (34.0-46.0) % MCV 94.2 (80.0-100.0) fL MCH 30.5 (25.0-35.0) pg MCHC 32.4 (31.0-37.0) g/dL RDW 13.1 (11.5-15.5) % Plt Count 264 (150-450) k/uL MPV 8.8 Neutrophils % 65 % Lymphocytes % 21 % Monocytes % 6 % Eosinophils % 7 % Basophils % 0 % Neutrophils # 4.4 (1.3-7.7) k/uL Lymphocytes # 1.4 (1.0-4.8) k/uL Monocytes # 0.4 (0-1.0) k/uL Eosinophils # 0.4 (0-0.7) k/uL Basophils # 0.0 (0-0.2) k/uL PT (10.0-12.5) sec INR (<1.2) APTT (22.0-30.0) sec Sodium 142 (137-145) mmol/L Potassium 4.8 (3.5-5.1) mmol/L Chloride 113 H (98-107) mmol/L Carbon Dioxide 21 L (22-30) mmol/L Anion Gap 8 mmol/L BUN 16 (7-17) mg/dL Creatinine 1.08 H (0.52-1.04) mg/dL Est GFR (CKD-EPI)AfAm 81 (>60 ml/min/1.73 sqM) Est GFR (CKD-EPI)NonAf 70 (>60 ml/min/1.73 sqM) Glucose 80 (74-99) mg/dL Calcium 9.4 (8.4-10.2) mg/dL Magnesium 1.7 (1.6-2.3) mg/dL Total Bilirubin 0.6 (0.2-1.3) mg/dL AST 41 H (14-36) U/L ALT 32 (4-34) U/L Alkaline Phosphatase 214 H (38-126) U/L Troponin I <0.012 (0.000-0.034) ng/mL NT-Pro-B Natriuret Pep 631 pg/mL Total Protein 7.2 (6.3-8.2) g/dL Albumin 4.1 (3.5-5.0) g/dL Lipase 65 (23-300) U/L Influenza Type A (PCR) (Not Detectd) Influenza Type B (PCR) (Not Detectd) RSV (PCR) (Not Detectd) SARS-CoV-2 (PCR) (Not Detectd) 06/03/23 06/03/23 06/03/23 Range/Units 10:35 11:41 13:02 WBC (3.8-10.6) k/uL RBC (3.80-5.40) m/uL Hgb (11.4-16.0) gm/dL Hct (34.0-46.0) % MCV (80.0-100.0) fL MCH (25.0-35.0) pg MCHC (31.0-37.0) g/dL RDW (11.5-15.5) % Plt Count (150-450) k/uL MPV Neutrophils % % Lymphocytes % % Monocytes % % Eosinophils % % Basophils % % Neutrophils # (1.3-7.7) k/uL Lymphocytes # (1.0-4.8) k/uL Monocytes # (0-1.0) k/uL Eosinophils # (0-0.7) k/uL Basophils # (0-0.2) k/uL PT 10.4 (10.0-12.5) sec INR 0.9 (<1.2) APTT 23.5 (22.0-30.0) sec Sodium (137-145) mmol/L Potassium (3.5-5.1) mmol/L Chloride (98-107) mmol/L Carbon Dioxide (22-30) mmol/L Anion Gap mmol/L BUN (7-17) mg/dL Creatinine (0.52-1.04) mg/dL Est GFR (CKD-EPI)AfAm (>60 ml/min/1.73 sqM) Est GFR (CKD-EPI)NonAf (>60 ml/min/1.73 sqM) Glucose (74-99) mg/dL Calcium (8.4-10.2) mg/dL Magnesium (1.6-2.3) mg/dL Total Bilirubin (0.2-1.3) mg/dL AST (14-36) U/L ALT (4-34) U/L Alkaline Phosphatase (38-126) U/L Troponin I <0.012 (0.000-0.034) ng/mL NT-Pro-B Natriuret Pep pg/mL Total Protein (6.3-8.2) g/dL Albumin (3.5-5.0) g/dL Lipase (23-300) U/L Influenza Type A (PCR) Not Detected (Not Detectd) Influenza Type B (PCR) Not Detected (Not Detectd) RSV (PCR) Not Detected (Not Detectd) SARS-CoV-2 (PCR) Not Detected (Not Detectd) - EKG Data -: EKG Interpreted by Me EKG Comments: 12-lead Electrocardiogram Interpretation Note EKG was reviewed and interpreted by myself. 12-lead ECG performed at 1017 is interpreted by me as revealing normal sinus rhythm at a rate of 84 beats per minute. Left axis deviation. MA interval is 154 ms, QRS duration is 90 ms, QTc is 401 ms.. There were no ST or T wave abnormalities to suggest myocardial ischemia or injury. R wave progression across the precordium was satisfactory. By my interpretation this EKG is non-diagnostic for acute ischemia. Disposition Clinical Impression: Chest wall pain Disposition: HOME SELF-CARE Condition: Good Instructions (If sedation given, give patient instructions): Chest Wall Pain (ED) Is patient prescribed a controlled substance at d/c from ED?: No Referrals: Bianca Lindsay MD [Primary Care Provider] - 1-2 days Time of Disposition: 13:40
[2023-06-03 10:52] LABS: Anion Gap 8 mmol/L; Blood Urea Nitrogen 16 mg/dL (7-17); Carbon Dioxide 21 mmol/L (22-30); Chloride 113 mmol/L (98-107); Glucose 80 mg/dL (74-99); Sodium 142 mmol/L (137-145)
[2023-06-03 10:53] LABS: ALT 32 U/L (4-34); African American GFR (CKD) 81 (>60 ml/min/1.73 sqM); Albumin 4.1 g/dL (3.5-5.0); Calcium 9.4 mg/dL (8.4-10.2); Lipase 65 U/L (23-300); Non-African American GFR(CKD) 70 (>60 ml/min/1.73 sqM); Total Bilirubin 0.6 mg/dL (0.2-1.3); Total Protein 7.2 g/dL (6.3-8.2)
[2023-06-03 11:01] LABS: NT-Pro-B-Type Natriuretic Pept 631 pg/mL
[2023-06-03 11:05] LABS: AST 41 U/L (14-36); Alkaline Phosphatase 214 U/L (38-126); Magnesium 1.7 mg/dL (1.6-2.3); Potassium 4.8 mmol/L (3.5-5.1)
--- NOTE | 2023-06-03 11:18 | XR ---
EXAMINATION TYPE: XR chest 2V DATE OF EXAM: 06/03/2023 COMPARISON: 03/25/2021 HISTORY: Chest pain TECHNIQUE: Frontal and lateral views of the chest are obtained. FINDINGS: There is no focal air space opacity. No evidence for pneumothorax. No pleural effusion. The cardiac silhouette size is within normal limits. Paratracheal soft tissue prominence could reflec t underlying adenopathy or thyroid mass. CT is recommended. The osseous structures are grossly intact. IMPRESSION: 1. Paratracheal soft tissue prominence could reflect underlying adenopathy or thyroid mass. CT is re commended.
[2023-06-03 11:57] LABS: INR 0.9 (<1.2); Partial Thromboplastin Time 23.5 sec (22.0-30.0); Prothrombin Time 10.4 sec (10.0-12.5)
[2023-06-03 12:21] VITALS: RESP 18
[2023-06-03 14:22] VITALS: BP 101/79; PULSE 99; TEMP 97.9
== END 2023-06-03 14:06 | disposition home or self-care (01) ==
LOC: EC 10:07
DX: R07.89 Other chest pain (principal); Q96.9 Turner's syndrome, unspecified; Z88.0 Allergy status to penicillin; Z88.1 Allergy status to other antibiotic agents; Z88.2 Allergy status to sulfonamides; Z86.73 Personal history of transient ischemic attack (TIA), and cerebral infarction without residual deficits; Z11.52 Encounter for screening for COVID-19
CPT/HCPCS: 36415; 93005; 83880; 80053; 83690; 83735; 84484; 85025; 85610; 85730; 87636; 71046; 99285; 96374; J1885

== ENCOUNTER 2023-08-31 00:19 | Emergency (ER) | payer OTHER ==
--- NOTE | 2023-08-31 00:57 | ED ---
General Adult HPI - General Chief complaint: Shortness of Breath Stated complaint: Cough Time Seen by Provider: 08/31/23 00:40 Source: patient Mode of arrival: EMS Limitations: no limitations - History of Present Illness Initial comments: Dictation was produced using [employer] dictation software. please excuse any grammatical, word or spelling errors. Chief Complaint: 28-year-old female past medical history of Ingram syndrome, autism and CVA presents to the emergency department 1 fever sore throat History of Present Illness: 28-year-old female presents emergency department for fever, or sore throat. Patient states her symptoms have been slowly progressing over the last week. Patient complains of nasal congestion, cough, sharp chest pain. She states that her cough is also productive. No obvious sick contacts. Has been trying to take cold and flu medicine at home with no improvement. The ROS documented in this emergency department record has been reviewed and confirmed by me. Those systems with pertinent positive or negative responses have been documented in the HPI. All other systems are other negative and/or noncontributory. - Related Data Home Medications Medication Instructions Recorded Confirmed Ferrous Sulfate [Iron (65 MG 325 mg PO DAILY 11/01/14 06/03/23 Elemental)] Sertraline HCl [Zoloft] 50 mg PO HS 11/01/14 06/03/23 oxyBUTYnin chloride [Ditropan XL] 5 mg PO DAILY 11/01/14 06/03/23 Cholecalciferol [Vitamin D3 (125 125 mcg PO DAILY 01/22/22 06/03/23 Mcg = 5000 Iu)] Melatonin [Melatonin ER] 10 mg PO HS 01/22/22 06/03/23 Oxybutynin Xl [Ditropan XL] 10 mg PO HS 01/22/22 06/03/23 cloNIDine HCL [Catapres] 0.1 mg PO HS 06/03/23 06/03/23 Previous Rx's Medication Instructions Recorded Azithromycin [Zithromax Z Pack] 1 tab PO DIRECTED #6 tab 08/31/23 Allergies Allergy/AdvReac Type Severity Reaction Status Date / Time Penicillins Allergy Swelling Verified 08/31/23 00:29 sulfamethoxazole Allergy Rash/Hives Verified 08/31/23 00:29 [From Bactrim] trimethoprim [From Bactrim] Allergy Rash/Hives Verified 08/31/23 00:29 Review of Systems ROS Statement: Those systems with pertinent positive or pertinent negative responses have been documented in the HPI. ROS Other: All systems not noted in ROS Statement are negative. Past Medical History Past Medical History: CVA/TIA 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, Autism History of Any Multi-Drug Resistant Organisms: None Reported Additional Past Surgical History / Comment(s): Right nephrectomy Past Anesthesia/Blood Transfusion Reactions: No Reported Reaction Past Psychological History: Depression Smoking Status: Never smoker Past Alcohol Use History: None Reported Past Drug Use History: None Reported General Exam - General Exam Comments Initial Comments: PHYSICAL EXAM: General Impression: Alert and oriented x3, not in acute distress HEENT: Normocephalic atraumatic, extra-ocular movements intact, pupils equal and reactive to light bilaterally, mucous membranes moist. Cardiovascular: Heart regular rate and rhythm Chest: Able to complete full sentences, no retractions, no tachypnea, whopping cough Abdomen: abdomen soft, non-tender, non-distended, no organomegaly Musculoskeletal: Pulses present and equal in all extremities, no peripheral edema Motor: no focal deficits noted Neurological: CN II-XII grossly intact, no focal motor or sensory deficits noted Skin: Intact with no visualized rashes Psych: Normal affect and mood Limitations: no limitations Course Vital Signs 08/31/23 08/31/23 00:26 02:12 Temperature 101.6 F H 100.3 F H Pulse Rate 105 H 91 Respiratory 20 18 Rate Blood Pressure 122/83 106/69 O2 Sat by Pulse 97 Oximetry Medical Decision Making - Medical Decision Making Was pt. sent in by a medical professional or institution (, PA, INSPECTOR RAW QUARTZ, urgent care, hospital, or residential...) When possible be specific @ -No Did you speak to anyone other than the patient for history (EMS, parent, family, police, friend...)? What history was obtained from this source @ -No Did you review nursing and triage notes (agree or disagree)? Why? @ -I reviewed and agree with nursing and triage notes Were old charts reviewed (outside hosp., previous admission, EMS record, old EKG, old radiological studies, urgent care reports/EKG's, residential records)? Report findings @ -No old charts were reviewed Differential Diagnosis (chest pain, altered mental status, abdominal pain women, abdominal pain men, vaginal bleeding, musculoskeletal, weakness, fever, dyspnea, syncope, headache, dizziness, GI bleed, back pain, seizure, CVA, palpatations, mental health)? @ -Differential Fever: Pneumonia, viral URI, endocarditis, myocarditis, pericarditis, otitis, sinusitis, peritonsillar Abscess, retropharyngeal Abscess, epiglottitis, peritonitis, appendicitis, Marina cystitis, diverticulitis, hepatitis, colitis, UTI, PID, TOA, pyelonephritis, prostatitis, epididymitis, meningitis, encephalitis, pulmonary embolism, CVA, thyroid storm, pancreatitis, adrenal crisis, cavernous sinus thrombosis, this is not meant to be an all-inclusive list. EKG interpreted by me (3pts min.). @ -None done X-rays interpreted by me (1pt min.). @ -Chest x-ray shows no acute processes CT interpreted by me (1pt min.). @ -None done U/S interpreted by me (1pt. min.). @ -None done What testing was considered but not performed or refused? (CT, X-rays, U/S, l abs)? Why? @ -None What meds were considered but not given or refused? Why? @ -None Was smoking cessation discussed for >3mins.? @ -No Were there social determinants of health that impacted care today? How? (Homelessness, low income, unemployed, alcoholism, drug addiction, transportation, low edu. Level, literacy, decrease access to med. care, retirement, rehab)? @ -No Was there de-escalation of care discussed even if they declined (Discuss DNR or withdrawal of care, Hospice)? DNR status @ -No What co-morbidities impacted this encounter? (DM, HTN, Smoking, COPD, CAD, Cancer, CVA, ARF, Chemo, Hep., AIDS, mental health diagnosis, sleep apnea, morbid obesity)? @ -None Was patient admitted / discharged? Hospital course, mention meds given and route, prescriptions, significant lab abnormalities, going to OR and other pertinent info. @ -28-year-old female presents with fever and cough along with URI type symptoms. Vital signs upon arrival shows temperature one 1.6. Patient has characteristic whooping cough. Labs are unremarkable. No leukocytosis. Viral swabs and rapid strep are negative. Chest x-ray is nonacute. Given Z-Eric discharge. Advised follow-up with primary care doctor. Did you discuss the management of the patient with other professionals (professionals i.e. , PA, INSPECTOR RAW QUARTZ, lab, RT, psych nurse, medical social worker, terrazzo finisher helper, teacher, communications officer, rn field case manager)? Give summary @ -No Was critical care preformed (if so, how long)? @ -No Undiagnosed new problem with uncertain prognosis? @ -No Drug Therapy requiring intensive monitoring for toxicity (Heparin, Nitro, Insuli n, Cardizem)? @ -No Were any procedures done? @ -No Diagnosis/symptom? Acute, or Chronic, or Acute on Chronic? Uncomplicated (without systemic symptoms) or Complicated (systemic symptoms)? @ -Whooping cough Side effects of treatment? @ -No Exacerbation, Progression, or Severe Exacerbation? @ -No Poses a threat to life or bodily function? How? (Chest pain, [place], [place], pneumonia, PE, COPD, DKA, ARF, appy, cholecystitis, CVA, Diverticulitis, Homicidal, Suicidal, threat to staff... and all critical care pts) @ -No - Lab Data Result diagrams: 08/31/23 01:19 08/31/23 01:19 Lab Results 08/31/23 08/31/23 08/31/23 Range/Units 01:19 01:19 01:19 WBC 6.0 (3.8-10.6) k/uL RBC 4.35 (3.80-5.40) m/uL Hgb 13.4 (11.4-16.0) gm/dL Hct 39.8 (34.0-46.0) % MCV 91.5 (80.0-100.0) fL MCH 30.8 (25.0-35.0) pg MCHC 33.6 (31.0-37.0) g/dL RDW 12.8 (11.5-15.5) % Plt Count 193 (150-450) k/uL MPV 9.6 Neutrophils % 79 % Lymphocytes % 13 % Monocytes % 6 % Eosinophils % 1 % Basophils % 0 % Neutrophils # 4.8 (1.3-7.7) k/uL Lymphocytes # 0.8 L (1.0-4.8) k/uL Monocytes # 0.4 (0-1.0) k/uL Eosinophils # 0.1 (0-0.7) k/uL Basophils # 0.0 (0-0.2) k/uL Sodium 137 (137-145) mmol/L Potassium 3.9 (3.5-5.1) mmol/L Chloride 107 (98-107) mmol/L Carbon Dioxide 22 (22-30) mmol/L Anion Gap 8 mmol/L BUN 21 H (7-17) mg/dL Creatinine 1.25 H (0.52-1.04) mg/dL Est GFR (CKD-EPI)AfAm 67 (>60 ml/min/1.73 sqM) Est GFR (CKD-EPI)NonAf 58 (>60 ml/min/1.73 sqM) Glucose 98 (74-99) mg/dL Calcium 8.9 (8.4-10.2) mg/dL Influenza Type A (PCR) Not Detected (Not Detectd) Influenza Type B (PCR) Not Detected (Not Detectd) RSV (PCR) Not Detected (Not Detectd) SARS-CoV-2 (PCR) Not Detected (Not Detectd) Group A Strep (PCR) (Not Detectd) 08/31/23 Range/Units 01:19 WBC (3.8-10.6) k/uL RBC (3.80-5.40) m/uL Hgb (11.4-16.0) gm/dL Hct (34.0-46.0) % MCV (80.0-100.0) fL MCH (25.0-35.0) pg MCHC (31.0-37.0) g/dL RDW (11.5-15.5) % Plt Count (150-450) k/uL MPV Neutrophils % % Lymphocytes % % Monocytes % % Eosinophils % % Basophils % % Neutrophils # (1.3-7.7) k/uL Lymphocytes # (1.0-4.8) k/uL Monocytes # (0-1.0) k/uL Eosinophils # (0-0.7) k/uL Basophils # (0-0.2) k/uL Sodium (137-145) mmol/L Potassium (3.5-5.1) mmol/L Chloride (98-107) mmol/L Carbon Dioxide (22-30) mmol/L Anion Gap mmol/L BUN (7-17) mg/dL Creatinine (0.52-1.04) mg/dL Est GFR (CKD-EPI)AfAm (>60 ml/min/1.73 sqM) Est GFR (CKD-EPI)NonAf (>60 ml/min/1.73 sqM) Glucose (74-99) mg/dL Calcium (8.4-10.2) mg/dL Influenza Type A (PCR) (Not Detectd) Influenza Type B (PCR) (Not Detectd) RSV (PCR) (Not Detectd) SARS-CoV-2 (PCR) (Not Detectd) Group A Strep (PCR) NOT DETECTED (Not Detectd) Disposition Clinical Impression: Whooping cough Disposition: HOME SELF-CARE Condition: Fair Instructions (If sedation given, give patient instructions): Pertussis (ED) Prescriptions: Azithromycin [Zithromax Z Pack] 1 tab PO DIRECTED #6 tab Is patient prescribed a controlled substance at d/c from ED?: No Referrals: Bianca Lindsay MD [Primary Care Provider] - 1-2 days Time of Disposition: 02:32
--- NOTE | 2023-08-31 01:01 | XR ---
EXAMINATION TYPE: XR chest 2V DATE OF EXAM: 08/31/2023 COMPARISON: Chest x-ray June 03, 2023 HISTORY: Cough and fever TECHNIQUE: Frontal and lateral views of the chest are obtained. FINDINGS: There is no focal air space opacity, pleural effusion, or pneumothorax seen. The cardiac silhouette size is stable and upper limits of normal. Underlying scoliosis is redemonstrated. IMPRESSION: No acute pulmonary infiltrate.
[2023-08-31] MEDS: ACETAMINOPHEN TAB 500 MG TAB PO STA (01:17)
[2023-08-31 01:46] LABS: Basophils % (A) 0 %; Eosinophils # (A) 0.1 k/uL (0-0.7); Eosinophils % (A) 1 %; HCT 39.8 % (34.0-46.0); HGB 13.4 gm/dL (11.4-16.0); Lymphocytes # (A) 0.8 k/uL (1.0-4.8); Lymphocytes % (A) 13 %; MCH 30.8 pg (25.0-35.0); MCHC 33.6 g/dL (31.0-37.0); MCV 91.5 fL (80.0-100.0); Mean Platelet Volume 9.6; Monocytes # (A) 0.4 k/uL (0-1.0); Monocytes % (A) 6 %; Neutrophils # (A) 4.8 k/uL (1.3-7.7); Neutrophils % (A) 79 %; Platelet Count 193 k/uL (150-450); RBC 4.35 m/uL (3.80-5.40); RDW 12.8 % (11.5-15.5)
[2023-08-31 01:53] LABS: African American GFR (CKD) 67 (>60 ml/min/1.73 sqM); Anion Gap 8 mmol/L; Blood Urea Nitrogen 21 mg/dL (7-17); Calcium 8.9 mg/dL (8.4-10.2); Carbon Dioxide 22 mmol/L (22-30); Chloride 107 mmol/L (98-107); Glucose 98 mg/dL (74-99); Non-African American GFR(CKD) 58 (>60 ml/min/1.73 sqM); Potassium 3.9 mmol/L (3.5-5.1); Sodium 137 mmol/L (137-145)
[2023-08-31 02:57] VITALS: BP 106/70; PULSE 96; RESP 20; TEMP 99.7
== END 2023-08-31 02:46 | disposition home or self-care (01) ==
LOC: EC 00:19
DX: A37.90 Whooping cough, unspecified species without pneumonia (principal); Z88.0 Allergy status to penicillin; Z88.1 Allergy status to other antibiotic agents; Z88.2 Allergy status to sulfonamides; Z86.73 Personal history of transient ischemic attack (TIA), and cerebral infarction without residual deficits
CPT/HCPCS: 36415; 71046; 80048; 85025; 87636; 87651; 99285

== ENCOUNTER → 2024-02-21 | Outpatient (CLI) | payer OTHER ==
--- NOTE | 2024-02-21 11:16 | US ---
EXAMINATION TYPE: US kidneys/renal and bladder DATE OF EXAM: 02/21/2024 COMPARISON: US & CT CLINICAL INDICATION: Female, 28 years old with history of N18.30 CHRONIC KIDNEY DISEASE, STAGE 3B; CK D TECHNIQUE: Grayscale imaging of the bilateral kidneys and urinary bladder: FINDINGS: EXAM MEASUREMENTS: Right Kidney: 11.8 x 6.0 x 4.9 cm Right Kidney: Appeared multicystic with largest cyst lower pole= 3.4 x 2.3 x 3.7 cm, dilated renal pe lvis at 3cm Left Kidney: Surgically absent Bladder: wnl Bilateral Jets seen: No Multiple anechoic cysts identified within the right kidney with dilated renal pelvis. Poor cortical m edullary differentiation. No shadowing calculus is identified. No distinct solid mass. Left kidney is surgically absent. The urinary bladder is anechoic. IMPRESSION: 1. Multicystic appearance of the right kidney with dilated renal pelvis. Difficult to determine if t here is hydronephrosis versus multiple cysts. This can be further evaluated with CT as clinically ind icated. 2. Left kidney is surgical absent. [facility], , 02/21/2024 11:14 AM
== END | disposition home or self-care (01) ==
LOC: RADUSWWP 09:57
PROVIDERS: ATTEND Internal Medicine Nephrology
DX: N18.32 Chronic kidney disease, stage 3b (principal)
CPT/HCPCS: 76770

== ENCOUNTER 2024-05-24 08:53 | Day surgery (SDC) | payer OTHER ==
[2024-05-19 15:55] VITALS: BMI 46.0
[~2024-05-24 08:53] MED LIST: LACTATED RINGERS 1,000 ML IV SCH; LIDOCAINE 1% (10MG/ML) FOR IV START INTRADERMA PRN
[2024-05-24] MEDS: IV FLUID CONTINUATION 1,000 ML IV ONE (09:10)
[2024-05-24 09:26] VITALS: RESP 16; TEMP 98.7
[2024-05-24] MEDS ORDERED: PROPOFOL 10 MG/ML 20 ML VIAL IV ONE (09:50)
[2024-05-24] MEDS ORDERED: LIDOCAINE 1% INJ 10MG/ML (20 ML MDV) ONE (09:50)
--- NOTE | 2024-05-24 10:00 | P.PCN ---
Date of Procedure: 05/24/24 Procedure(s) Performed: BRIEF HISTORY: Patient is a 28-year-old, pleasant, white female scheduled for an upper endoscopy as a part of evaluation of GERD and intermittent dysphagia to solids for the last few months duration. PROCEDURE PERFORMED: Esophagogastroduodenoscopy with biopsy. PREOPERATIVE DIAGNOSIS: GERD/intermittent dysphagia to solids. IV sedation per anesthesia. PROCEDURE: After informed consent was obtained, the patient was brought into the endoscopy unit. IV sedation was administered by Anesthesia under continuous monitoring. Initially the Olympus GIF-140 video endoscope was inserted into the mouth. Esophagus intubated without any difficulty. It was gradually advanced into the stomach and duodenum and carefully examined. The bulb and the second part of the duodenum appeared normal. The scope at this time was withdrawn to the stomach, adequately insufflated with air, and upon careful examination, mucosa of the antrum, body, cardia and the fundus appeared normal. The scope was then withdrawn into the esophagus. Small hiatal hernia noted. The GE junction was located at 33 cm from the incisors. The esophagus appeared normal. There were no erosions or ulcerations seen, biopsies were done from the mid and distal esophagus rule out eosinophilic esophagitis and the patient tolerated the procedure well. IMPRESSION: 1. Small hiatal hernia. 2. No evidence of esophagitis or esophageal stricture. RECOMMENDATIONS: The findings of this examination were discussed with the patient as well as her family. Follow-up with the biopsy results. She was advised to continue with Pepcid 20 mg twice daily and follow antireflux measures..
[2024-05-24 10:27] VITALS: BP 122/79; PULSE 84
== END 2024-05-24 10:42 | disposition home or self-care (01) ==
LOC: ORWHC2ENDO 08:53
PROVIDERS: ATTEND Internal Medicine Gastroenterology
DX: K44.9 Diaphragmatic hernia without obstruction or gangrene (principal); K21.9 Gastro-esophageal reflux disease without esophagitis; F32.A Depression, unspecified; F84.0 Autistic disorder; Z86.73 Personal history of transient ischemic attack (TIA), and cerebral infarction without residual deficits; Z88.0 Allergy status to penicillin; Z88.1 Allergy status to other antibiotic agents; Z88.2 Allergy status to sulfonamides; Z79.899 Other long term (current) drug therapy
CPT/HCPCS: 81025; 88305; 43239; J2003; J2704

== ENCOUNTER → 2024-05-30 | Outpatient (CLI) | payer OTHER ==
--- NOTE | 2024-05-30 11:13 | US ---
EXAMINATION TYPE: US thyroid st tissue head/neck DATE OF EXAM: 05/30/2024 COMPARISON: NONE CLINICAL INDICATION: Female, 28 years old with history of R07.0 PAIN IN THROAT; Pain in throat x 2 mo nths. TECHNIQUE: Grayscale and color Doppler imaging of the thyroid gland. FINDINGS: GLAND SIZE: Right Lobe: 3.6 x 1.2 x 1.6 cm Overall Parenchyma: homogeneous Left Lobe: 3.7 x 1.3 x 1.5 cm Overall Parenchyma: homogeneous Isthmus Thickness: 0.4 cm NODULES RIGHT: # of nodules measured on right: 0 LEFT: # of nodules measured on left: 0 ISTHMUS: # of nodules measured in the isthmus: 0 Bilateral neck scanned, no evidence of lymphadenopathy. IMPRESSION: 1. No thyroid nodules identified. 2. No acute process. No organizing fluid collection or lymphadenopathy. TI-RADS assessment score and recommendation for follow-up based on appropriate scoring and treatment protocols. TR3: If nodule size is ? 2.5 cm, FNA is recommended. If nodule size is ? 1.5 cm, follow-up imaging at 1, 3, and 5 years is recommended. TR4: If nodule size is ? 1.5 cm, FNA is recommended. If nodule size is ? 1.0 cm, follow-up imaging at 1, 2, 3, and 5 years is recommended. TR5: If nodule size is ? 1.0 cm, FNA is recommended. If nodule size is ? 0.5 cm, annual follow-up for up to 5 years is recommended. [email or web address] [facility], , 05/30/2024 11:11 AM
== END | disposition home or self-care (01) ==
LOC: RADUSWWP 10:48
PROVIDERS: ATTEND Otolaryngology
DX: R07.0 Pain in throat (principal)
CPT/HCPCS: 76536